=== PATIENT | female | born 1950 | race Hispanic/Latino ===

== ENCOUNTER 2017-07-05 07:37 | Day surgery (SDC) | payer MEDICARE ==
[2017-07-03 09:41] VITALS: BMI 21.0
[2017-07-05 08:11] LABS: BASO # 0.1 K/uL (0.0-0.2); EOS # 0.1 K/uL (0.0-0.7); EOS % 0.8 % (0.0-4.0); LYMPH # 1.6 K/uL (1.0-4.3); LYMPH % 17.4 % (20.0-40.0); MEAN CELL VOLUME 80.2 fl (81.0-99.0); MEAN CORPUSCULAR HEMOGLOBIN 27.6 pg (27.0-31.0); MEAN CORPUSCULAR HGB CONC 34.4 g/dL (33.0-37.0); MEAN PLATELET VOLUME 6.8 fl (7.2-11.7); MONO # 0.7 K/uL (0.0-0.8); MONO % 7.3 % (0.0-10.0); NEUT # 6.7 K/uL (1.8-7.0); NEUT % 73.5 % (50.0-75.0); NRBC % 0.3 % (0.0-0.0); RED CELL DISTRIBUTION WIDTH 18.6 % (11.5-14.5); WHITE BLOOD COUNT 9.1 K/uL (4.8-10.8)
[2017-07-05 08:36] LABS: BLOOD UREA NITROGEN 8 mg/dl (7-17); CALCIUM 8.9 mg/dL (8.4-10.2); CARBON DIOXIDE 34 mmol/L (22-30); CHLORIDE 85 mmol/L (98-107); GFR AFRICAN-AMERICAN > 60; GLUCOSE,RANDOM 95 mg/dL (65-105); POTASSIUM 4.3 MMOL/L (3.6-5.0); SODIUM 127 mmol/l (132-148)
[2017-07-05] MEDS ORDERED: Lactated Ringer's 500 ML IV ONE (08:50)
[2017-07-05] MEDS ORDERED: Propofol 10 mg/ml Inj (20 ML) ONE (08:58)
[2017-07-05] MEDS ORDERED: Lidocaine 1% 5ml Abboject IV ONE (08:59)
[2017-07-05] MEDS ORDERED: Lidocaine 1% Inj (20ml) IJ ONE (09:10)
[2017-07-05] MEDS ORDERED: Lidocaine 1% Inj (20ml) ONE (09:12)
[2017-07-05] MEDS ORDERED: Lactated Ringer's 1,000 ML IV SCH (10:00)
[2017-07-05 11:38] VITALS: RESP 18
[2017-07-05 14:03] VITALS: BP 168/80; PULSE 78; TEMP 98.9; O2SAT 89
== END 2017-07-05 14:54 | disposition home or self-care (01) ==
LOC: H.OPSURG 07:37
PROVIDERS: ATTEND Orthopaedic Surgery
DX: G56.01 Carpal tunnel syndrome, right upper limb (principal); M13.80 Other specified arthritis, unspecified site; J45.909 Unspecified asthma, uncomplicated
CPT/HCPCS: 29848; 36415; 80048; 85025; J0690; J2704; J7120

== ENCOUNTER 2018-01-21 13:06 | Emergency (ER) | payer MEDICARE ==
[2018-01-21 13:07] VITALS: BMI 21.0
[2018-01-21 13:21] VITALS: RESP 16; TEMP 97.9; O2SAT 100
--- NOTE | 2018-01-21 13:54 | ED PDOC ---
HPI: Hypertension/Hypotension Time Seen by Provider: 01/21/18 13:59 Chief Complaint (Nursing): High Blood Pressure Chief Complaint (Provider): HBP History Per: Patient History/Exam Limitations: no limitations Onset/Duration Of Symptoms: Hrs (3) Past Medical History Vital Signs: Last Vital Signs Temp 97.9 F 01/21/18 13:19 Pulse 80 01/21/18 13:19 Resp 16 01/21/18 13:19 BP 192/116 H 01/21/18 13:19 Pulse Ox 100 01/21/18 13:19 - Medical History PMH: Anxiety, Arthritis, Asthma, Back Problems (herniated disc), Colonic Polyps , COPD, Depression, Emphysema, Fibromyalgia, Gastritis, HTN, Malignancy ( bladder CA), Peripheral Edema, Pneumonia (CHILDHOOD) Denies: HIV, Chronic Kidney Disease - Surgical History Surgical History: Endoscopy - Family History Family History: States: Unknown Family Hx - Immunization History Hx Tetanus Toxoid Vaccination: No Hx Influenza Vaccination: Yes (06/2015) Hx Pneumococcal Vaccination: No - Home Medications Home Medications: Ambulatory Orders Medication Instructions Recorded Albuterol HFA [Ventolin HFA 90 2 puff IH [id number] PRN 09/26/17 mcg/actuation (8 g)] Gabapentin 300 mg PO Q8 09/26/17 Oxybutynin Chloride [Oxybutynin 15 mg PO Q12H 09/26/17 Chloride ER] Valsartan [Diovan] 80 mg PO DAILY 09/26/17 Baclofen [Lioresal] 10 mg PO Q8H 01/21/18 Cholecalciferol [Vitamin D 1000 IU] 1,000 unit PO DAILY 01/21/18 Fluticasone/Vilanterol [Breo 1 puff IH DAILY 01/21/18 Ellipta 200-25 Mcg INH] LORazepam [Ativan] 0.5 mg PO DAILY 01/21/18 Lactobacillus Combination No.8 1 cap PO DAILY 01/21/18 [Adult Probiotic] Naproxen [Naproxen] 375 mg PO Q12 PRN 01/21/18 [place]-3 Fatty Acids/Fish Oil [Fish 1 cap PO DAILY 01/21/18 Oil 1,000 mg Capsule] Omeprazole [Omeprazole] 20 mg PO DAILY 01/21/18 Sertraline [Zoloft] 50 mg PO DAILY 04/23/18 clonazePAM [Klonopin] 0.5 mg PO Q12 PRN 01/21/18 oxyCODONE [oxyCODONE Immediate 10 mg PO Q6 PRN 01/21/18 Release Tab] - Allergies Allergies/Adverse Reactions: Allergies Allergy/AdvReac Type Severity Reaction Status Date / Time No Known Allergies Allergy Verified 09/26/17 13:34 - Laboratory Results Result Diagrams: 01/21/18 14:20 01/21/18 14:20 - ECG O2 Sat by Pulse Oximetry: 100 Disposition - Clinical Impression Clinical Impression: Abnormal blood pressure, Hypertensive urgency - Patient ED Disposition Is Patient to be Admitted: No Discussed With Dr.: Jose Tomlin (discharge and have pt follow up in office tomorrow morning at 10am) Doctor Will See Patient In The: Office Counseled Patient/Family Regarding: Studies Performed, Diagnosis, Need For Followup, Rx Given - Disposition Referrals: Jose Tomlin MD [Family Provider] - Disposition: Routine/Home Disposition Time: 19:05 Condition: STABLE Additional Instructions: Pt will follow up with Dr Tomlin at 10am tomorrow Forms: [employer] (Azeri)
[2018-01-21] MEDS ORDERED: Metoprolol Succinate 25 mg XL Tab PO STA (14:21)
[2018-01-21 14:32] LABS: BASO # 0.1 K/uL (0.0-0.2); BASO % 0.9 % (0.0-2.0); EOS # 0.1 K/uL (0.0-0.7); EOS % 0.7 % (0.0-4.0); HEMOGLOBIN 14.7 g/dL (12.0-16.0); LYMPH # 0.8 K/uL (1.0-4.3); LYMPH % 9.9 % (20.0-40.0); MEAN CELL VOLUME 78.6 fl (81.0-99.0); MEAN CORPUSCULAR HGB CONC 34.3 g/dL (33.0-37.0); MEAN PLATELET VOLUME 7.1 fl (7.2-11.7); MONO # 0.5 K/uL (0.0-0.8); MONO % 5.5 % (0.0-10.0); NEUT # 7.1 K/uL (1.8-7.0); NRBC % 0.1 % (0.0-0.0); PLATELET COUNT 208 K/uL (130-400); RBC 5.45 Mil/uL (3.80-5.20); WHITE BLOOD COUNT 8.5 K/uL (4.8-10.8)
[2018-01-21 15:02] LABS: INR 1.2 (0.9-1.2)
[2018-01-21 15:06] LABS: B-TYPE NATRIURETIC PEPTIDE 312 pg/ml (0-900); BLOOD UREA NITROGEN 9 mg/dl (7-17); GFR AFRICAN-AMERICAN > 60; GFR NON-AFRICAN AMERICAN > 60
--- NOTE | 2018-01-21 15:22 | RAD ---
PROCEDURE: CHEST RADIOGRAPH, 1 VIEW HISTORY: Hypertension. COMPARISON: 10/27/2011. FINDINGS: LUNGS: Clear. PLEURA: No pneumothorax or pleural fluid seen. CARDIOVASCULAR: No radiographic findings to suggest acute or significant cardiovascular disease. OSSEOUS STRUCTURES: No significant abnormalities. VISUALIZED UPPER ABDOMEN: Normal. OTHER FINDINGS: None. IMPRESSION: No active disease. No acute/significant interval changes.
[2018-01-21 15:29] LABS: ANISOCYTOSIS SLIGHT; EOSINOPHIL 1 % (0-7); LYMPHOCYTE 11 % (20-50); MONOCYTE 4 % (0-10); NEUTROPHIL 83 % (42-75); PLASMACYTES 1 (0-0); PLATELET ESTIMATE NORMAL (NORMAL); TOTAL CELLS COUNTED 100
[2018-01-21] MEDS ORDERED: Metoprolol Succinate 50 mg XL Tab PO STA (17:57)
[2018-01-21 18:15] VITALS: BP 180/99; PULSE 66
--- NOTE | 2018-01-22 10:47 | CARD ---
APPROVED REPORT EKG Measurement Heart [id number] <Conclusion> Normal sinus rhythm Possible Left atrial enlargement Borderline ECG
== END 2018-01-21 19:40 | disposition home or self-care (01) ==
LOC: H.ER 13:06
DX: I16.0 Hypertensive urgency (principal); Z86.59 Personal history of other mental and behavioral disorders; Z85.51 Personal history of malignant neoplasm of bladder; I10 Essential (primary) hypertension; J44.9 Chronic obstructive pulmonary disease, unspecified; M79.7 Fibromyalgia

== ENCOUNTER 2018-03-18 03:02 | Emergency (ER) | payer MEDICARE ==
[2018-03-18 03:02] VITALS: BMI 21.0
[2018-03-18 03:20] VITALS: RESP 16; TEMP 98.1
--- NOTE | 2018-03-18 04:32 | ED PDOC ---
HPI: Psych/Substance Abuse Time Seen by Provider: 03/18/18 03:20 Chief Complaint (Nursing): Shortness Of Breath Chief Complaint (Provider): Shortness of Breath History Per: Patient History/Exam Limitations: no limitations Suicide/Self Injury Attempted (Context): None Modifying Factor(s): None Additional Complaint(s): 67 year old female brought in by EMS presents to ED with a history of COPD and presents to ED for a place to stay overnight. Patient states that she has been on her feet all day and flew in from [place] with nowhere to stay. 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 Patient lists no medical or psychiatric complaints. PCP: Non-[facility] provider Past Medical History Reviewed: Historical Data, Nursing Documentation, Vital Signs Vital Signs: Last Vital Signs Temp 98.1 F 03/18/18 03:14 Pulse 87 03/18/18 03:14 Resp 16 03/18/18 03:34 BP 137/82 03/18/18 03:14 Pulse Ox 94 L 03/18/18 03:14 - Medical History PMH: Anxiety, Arthritis, Asthma, Back Problems (herniated disc), Colonic Polyps , COPD, Depression, Emphysema, Fibromyalgia, Gastritis, HTN, Malignancy ( bladder CA), Peripheral Edema, Pneumonia (CHILDHOOD) Denies: HIV, Chronic Kidney Disease - Surgical History Surgical History: Endoscopy - Family History Family History: States: Unknown Family Hx - Social History Current smoker - smoking cessation education provided: Yes Ex-Smoker (has not smoked in the last 12 months): No - Immunization History Hx Tetanus Toxoid Vaccination: No Hx Influenza Vaccination: Yes (06/2015) Hx Pneumococcal Vaccination: No - Home Medications Home Medications: Ambulatory Orders Medication Instructions Recorded Albuterol HFA [Ventolin HFA 90 2 puff IH [id number] PRN 09/26/17 mcg/actuation (8 g)] Gabapentin 300 mg PO Q8 09/26/17 Oxybutynin Chloride [Oxybutynin 15 mg PO Q12H 09/26/17 Chloride ER] Valsartan [Diovan] 80 mg PO DAILY 09/26/17 Baclofen [Lioresal] 10 mg PO Q8H 01/21/18 Cholecalciferol [Vitamin D 1000 IU] 1,000 unit PO DAILY 01/21/18 Fluticasone/Vilanterol [Breo 1 puff IH DAILY 01/21/18 Ellipta 200-25 Mcg INH] LORazepam [Ativan] 0.5 mg PO DAILY 01/21/18 Lactobacillus Combination No.8 1 cap PO DAILY 01/21/18 [Adult Probiotic] Metoprolol Succinate XL [Toprol XL] 50 mg PO BID #10 tab 01/21/18 Naproxen [Naproxen] 375 mg PO Q12 PRN 01/21/18 [place]-3 Fatty Acids/Fish Oil [Fish 1 cap PO DAILY 01/21/18 Oil 1,000 mg Capsule] Omeprazole [Omeprazole] 20 mg PO DAILY 01/21/18 Sertraline [Zoloft] 50 mg PO DAILY 01/21/18 clonazePAM [Klonopin] 0.5 mg PO Q12 PRN 01/21/18 oxyCODONE [oxyCODONE Immediate 10 mg PO Q6 PRN 01/21/18 Release Tab] - Allergies Allergies/Adverse Reactions: Allergies Allergy/AdvReac Type Severity Reaction Status Date / Time No Known Allergies Allergy Verified 09/26/17 13:34 Review of Systems ROS Statement: Except As Marked, All Systems Reviewed And Found Negative ( Patient lists no medical complaints) Cardiovascular: Negative for: Chest Pain Respiratory: Negative for: Shortness of Breath Physical Exam - Reviewed Nursing Documentation Reviewed: Yes Vital Signs Reviewed: Yes - Physical Exam Appears: Positive for: Non-toxic, No Acute Distress Skin: Positive for: Normal Color, Warm, Dry Eye Exam: Positive for: Normal appearance Neck: Positive for: Normal Cardiovascular/Chest: Positive for: Regular Rate, Rhythm. Negative for: Murmur Respiratory: Positive for: Normal Breath Sounds. Negative for: Respiratory Distress Gastrointestinal/Abdominal: Positive for: Normal Exam, Soft. Negative for: Tenderness Extremity: Positive for: Normal ROM. 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 Negative for: Motor/Sensory Deficits - ECG O2 Sat by Pulse Oximetry: 94 (RA) Pulse Ox Interpretation: Abnormal Medical Decision Making Medical Decision Makin Initial impression: homelessness ekg nsr cxr no infiltrate vitals stable Initial plan: * crisis eval 0620 Patient was evaluated by crisis and given list of shelters and options for housing and deemed stable for discharge as per Dr. Paul. Dx: homelessness Scribe Attestation: Documented by Martine Lopez, acting as a scribe for Karmen Stiles MD. Provider Scribe Attestation: All medical record entries made by the Scribe were at my direction and personally dictated by me. I have reviewed the chart and agree that the record accurately reflects my personal performance of the history, physical exam, medical decision making, and the department course for this patient. I have also personally directed, reviewed, and agree with the discharge instructions and disposition. Disposition - Clinical Impression Clinical Impression: Homelessness - Patient ED Disposition Is Patient to be Admitted: No Counseled Patient/Family Regarding: Studies Performed, Diagnosis, Need For Followup - Disposition Referrals: [facility] [Outside] [facility] [Outside] Disposition: Routine/Home Disposition Time: 06:00 Condition: IMPROVED Additional Instructions: follow up with your primary doctor in 1-2 days return to the ED with any worsening or concerning symptoms Forms: [employer] (South African)
[2018-03-18 06:54] VITALS: BP 130/85; PULSE 82
[2018-03-20 10:44] VITALS: O2SAT 94
== END 2018-03-18 06:54 | disposition home or self-care (01) ==
LOC: H.ER 03:02
DX: J44.9 Chronic obstructive pulmonary disease, unspecified (principal); Z59.0 Homelessness

== ENCOUNTER 2018-04-07 02:29 | Inpatient (IN) | payer MEDICARE ==
[2018-04-07 02:30] VITALS: BMI 21.0
--- NOTE | 2018-04-07 03:22 | ED PDOC ---
HPI: SOB/CHF/COPD Time Seen by Provider: 04/07/18 03:18 Chief Complaint (Nursing): Respiratory Distress Chief Complaint (Provider): sob History Per: Patient (68 y/o female h/o COPD/Emphysema initially with complaint of sob at triage. Patient denies any alcohol intake. Noted drowsy at triage) Past Medical History Reviewed: Historical Data, Nursing Documentation, Vital Signs Vital Signs: Last Vital Signs Temp 98.8 F 04/07/18 02:31 Pulse 87 04/07/18 04:20 Resp 17 04/07/18 02:59 BP 164/89 H 04/07/18 02:31 Pulse Ox 100 04/07/18 06:15 - Medical History PMH: Anxiety, Arthritis, Asthma, Back Problems (herniated disc), Colonic Polyps , COPD, Depression, Emphysema, Fibromyalgia, Gastritis, HTN, Malignancy ( bladder CA), Peripheral Edema, Pneumonia (CHILDHOOD) Denies: HIV, Chronic Kidney Disease - Surgical History Surgical History: Endoscopy - Family History Family History: States: Unknown Family Hx - Immunization History Hx Tetanus Toxoid Vaccination: No Hx Influenza Vaccination: Yes (06/2015) Hx Pneumococcal Vaccination: No - Home Medications Home Medications: Ambulatory Orders Medication Instructions Recorded Albuterol HFA [Ventolin HFA 90 2 puff IH [id number] PRN 09/26/17 mcg/actuation (8 g)] Gabapentin 300 mg PO Q8 09/26/17 Oxybutynin Chloride [Oxybutynin 15 mg PO Q12H 09/26/17 Chloride ER] Valsartan [Diovan] 80 mg PO DAILY 09/26/17 Baclofen [Lioresal] 10 mg PO Q8H 01/21/18 Cholecalciferol [Vitamin D 1000 IU] 1,000 unit PO DAILY 01/21/18 Fluticasone/Vilanterol [Breo 1 puff IH DAILY 01/21/18 Ellipta 200-25 Mcg INH] LORazepam [Ativan] 0.5 mg PO DAILY 01/21/18 Lactobacillus Combination No.8 1 cap PO DAILY 01/21/18 [Adult Probiotic] Metoprolol Succinate XL [Toprol XL] 50 mg PO BID #10 tab 01/21/18 Naproxen [Naproxen] 375 mg PO Q12 PRN 01/21/18 [place]-3 Fatty Acids/Fish Oil [Fish 1 cap PO DAILY 01/21/18 Oil 1,000 mg Capsule] Omeprazole [Omeprazole] 20 mg PO DAILY 01/21/18 Sertraline [Zoloft] 50 mg PO DAILY 01/21/18 clonazePAM [Klonopin] 0.5 mg PO Q12 PRN 01/21/18 oxyCODONE [oxyCODONE Immediate 10 mg PO Q6 PRN 01/21/18 Release Tab] - Allergies Allergies/Adverse Reactions: Allergies Allergy/AdvReac Type Severity Reaction Status Date / Time No Known Allergies Allergy Verified 09/26/17 13:34 Review of Systems ROS Statement: Except As Marked, All Systems Reviewed And Found Negative Physical Exam - Reviewed Nursing Documentation Reviewed: Yes Vital Signs Reviewed: Yes - Physical Exam Appears: Positive for: Non-toxic, No Acute Distress. Negative for: Well Head Exam: Positive for: ATRAUMATIC, NORMAL INSPECTION, NORMOCEPHALIC Skin: Positive for: Normal Color, Warm, DRY Eye Exam: Positive for: EOMI, Normal appearance, PERRL ENT: Positive for: Normal ENT Inspection Neck: Positive for: Normal, Painless ROM Cardiovascular/Chest: Positive for: Regular Rate, Rhythm Respiratory: Positive for: CNT, Normal Breath Sounds Gastrointestinal/Abdominal: Positive for: Normal Exam, Soft Back: Positive for: Normal Inspection Extremity: Positive for: Normal ROM Lymphatic: Negative for: Adenopathy Neurologic/Psych: Positive for: Other (sleepy in ED; verbally arousable.). Negative for: Alert, Oriented - Laboratory Results Result Diagrams: 04/07/18 03:38 04/07/18 03:38 - ECG O2 Sat by Pulse Oximetry: 100 - Progress ED Course And Treament: HEAD CT: NAD CXR: NAD EKG: NSR 81 BPM; ECTOPY; NO ACUTE DISEASE NARCAN 0.4MG IV X 1 DOSE PATIENT PLACED ON BIPAP. D/W DR. MEEHAN Disposition - Clinical Impression Clinical Impression: COPD (chronic obstructive pulmonary disease), Altered mental status - Patient ED Disposition Is Patient to be Admitted: Yes - Disposition Disposition Time: 06:20 Condition: FAIR - Pt Status Changed To: Hospital Disposition Of: Inpatient - Admit Certification Admit to Inpatient:: After my assessment, the patient will require hospitalization for at least two midnights. This is because of the severity of symptoms shown, intensity of services needed, and/or the medical risk in this patient being treated as an outpatient.
[2018-04-07 03:40] LABS: BASO # 0.1 K/uL (0.0-0.2); BASO % 0.7 % (0.0-2.0); EOS # 0.1 K/uL (0.0-0.7); EOS % 0.9 % (0.0-4.0); HEMOGLOBIN 13.1 g/dL (12.0-16.0); LYMPH # 1.1 K/uL (1.0-4.3); LYMPH % 7.2 % (20.0-40.0); MEAN CELL VOLUME 82.5 fl (81.0-99.0); MEAN CORPUSCULAR HEMOGLOBIN 28.6 pg (27.0-31.0); MEAN CORPUSCULAR HGB CONC 34.7 g/dL (33.0-37.0); MEAN PLATELET VOLUME 6.4 fl (7.2-11.7); MONO # 0.9 K/uL (0.0-0.8); MONO % 5.5 % (0.0-10.0); NEUT # 13.5 K/uL (1.8-7.0); NEUT % 85.7 % (50.0-75.0); PLATELET COUNT 257 K/uL (130-400); RBC 4.58 Mil/uL (3.80-5.20); WHITE BLOOD COUNT 15.7 K/uL (4.8-10.8)
[2018-04-07 03:52] LABS: ALB/GLOB RATIO 1.3 (1.0-2.1); ALBUMIN 3.8 g/dL (3.5-5.0); ALT/SGPT 17 U/L (9-52); AST/SGOT 30 U/L (14-36); BLOOD UREA NITROGEN 13 mg/dl (7-17); CALCIUM 8.9 mg/dL (8.4-10.2); GFR AFRICAN-AMERICAN > 60; GFR NON-AFRICAN AMERICAN > 60
[2018-04-07 03:58] LABS: ABG ALLEN TEST YES; ARTERIAL BLOOD GAS HCO3 31.3 mmol/L (21-28); ARTERIAL BLOOD GAS HEMOGLOBIN 13.3 g/dL (11.7-17.4); ARTERIAL BLOOD GAS O2 CAPACITY 16.6 mL/dL (16-24); ARTERIAL BLOOD GAS O2 CONTENT 15.3 ML/dL (15-23); ARTERIAL BLOOD GAS O2 SAT 92.1 % (95-98); ARTERIAL BLOOD GAS PCO2 73 mm/Hg (35-45); ARTERIAL BLOOD GAS PH 7.32 (7.35-7.45); ARTERIAL BLOOD GAS PO2 56 mm/Hg (80-100); ARTERIAL BLOOD GAS TCO2 39.8 mmol/L (22-28)
[2018-04-07] MEDS ORDERED: Naloxone 0.4 mg/ml Inj (Adult) IVP STA (04:00)
[2018-04-07 04:04] LABS: B-TYPE NATRIURETIC PEPTIDE 404 pg/ml (0-900)
[2018-04-07] MEDS ORDERED: Naloxone 0.4 mg/ml Inj (Adult) ONE (04:09)
[2018-04-07] MEDS ORDERED: Albuterol-Ipratrop 3 mg / 0.5 (3 ml) UD INH STA (05:15)
[2018-04-07 05:23] LABS: TOTAL CELLS COUNTED 100
[2018-04-07 05:24] LABS: BANDS 1 % (0-2); EOSINOPHIL 1 % (0-7); LYMPHOCYTE 12 % (20-50); MONOCYTE 7 % (0-10); NEUTROPHIL 79 % (42-75); PLATELET ESTIMATE NORMAL (NORMAL)
[2018-04-07] MEDS ORDERED: levoFLOXacin 500 mg in D5W 500 MG/100 ML BAG IVPB STA (05:48)
[2018-04-07] MEDS ORDERED: Albuterol-Ipratrop 3 mg / 0.5 (3 ml) UD ONE (05:49)
[2018-04-07] MEDS ORDERED: levoFLOXacin 500 mg in D5W 500 MG/100 ML BAG IVPB SCH (09:00)
--- NOTE | 2018-04-07 10:26 | RAD ---
HISTORY: Shortness of breath. COMPARISON: 01/21/2018. FINDINGS: LUNGS: No active pulmonary disease. PLEURA: No significant pleural effusion identified, no pneumothorax apparent. CARDIOVASCULAR: No radiographic findings to suggest acute or significant cardiovascular disease. OSSEOUS STRUCTURES: No significant abnormalities. VISUALIZED UPPER ABDOMEN: Normal. OTHER FINDINGS: None. IMPRESSION: No active disease. No significant interval change compared to the prior examination(s).
--- NOTE | 2018-04-07 11:01 | CT ---
PROCEDURE: CT HEAD WITHOUT CONTRAST. HISTORY: AMS COMPARISON: MRI brain dated 06/07/2017. TECHNIQUE: Axial computed tomography images were obtained through the head/brain without intravenous contrast. Radiation dose: Total exam DLP = 752.5 mGy-cm. This CT exam was performed using one or more of the following dose reduction techniques: Automated exposure control, adjustment of the mA and/or kV according to patient size, and/or use of iterative reconstruction technique. FINDINGS: HEMORRHAGE: No intracranial hemorrhage. BRAIN: No mass effect or edema. Mild atrophy. Mild chronic microvascular ischemic changes. VENTRICLES: Mildly prominent. No hydrocephalus. CALVARIUM: Unremarkable. PARANASAL SINUSES: Unremarkable as visualized. No significant inflammatory changes. MASTOID AIR CELLS: Unremarkable as visualized. No inflammatory changes. OTHER FINDINGS: Dysconjugate gaze. IMPRESSION: Dysconjugate gaze. This is a new finding. No evidence of acute intracranial hemorrhage or territorial infarct. ER notification submitted electronically.
[2018-04-07 11:22] LABS: SQUAMOUS EPITHIAL 1 /hpf (0-5); URINE BACTERIA RARE (<OCC); URINE BILIRUBIN NEGATIVE (NEGATIVE); URINE BLOOD NEGATIVE (NEGATIVE); URINE CLARITY CLOUDY (Clear); URINE COLOR YELLOW (YELLOW); URINE GLUCOSE (UA) NEG (Normal); URINE LEUKOCYTE ESTERASE NEG Leu/uL (Negative); URINE PROTEIN NEGATIVE (NEGATIVE); URINE UROBILINOGEN 0.2-1.0 mg/dL (0.2-1.0)
[2018-04-07 11:39] LABS: OPIATES, UR NEGATIVE (NEGATIVE); PHENCYCLIDINE, UR NEGATIVE (NEGATIVE)
[2018-04-07 11:41] LABS: BARBITURATES, UR NEGATIVE (NEGATIVE); BENZODIAZEPINES, UR POSITIVE (NEGATIVE)
[2018-04-07] MEDS ORDERED: methylPREDNISolone 60 MG in Sodium Chloride 0.9% 50 ML IV SCH (16:00)
[2018-04-07] MEDS: oxyCODONE 10 mg Immediate Release Tab PO PRN ×2 (16:02→22:22)
--- NOTE | 2018-04-07 17:58 | CARD ---
APPROVED REPORT EKG Measurement Heart [id number] <Conclusion> Normal sinus rhythm with sinus arrhythmia Possible Left atrial enlargement Borderline ECG
[2018-04-07] MEDS: Metoprolol Succinate 50 mg XL Tab PO SCH (18:03)
--- NOTE | 2018-04-08 07:55 | CP.PCM.HP ---
History of Present Illness - History of Present Illness History of Present Illness: CC: SOB nd AMS History of Present Illness: History from Patient and her PMD A 68yoF with H/O COPD, Active smoker ( About 3 PPD), Anxiety DO and Chronic Psychotropic medication abuse presented to the ER with C/O SOB and AMS after she signed out from [facility]. In the ER, she was treated for Acute Respiratory Failure due to COPD Exacerbation and Substance abuse with Narcan, BIPAP, Duoneb, Solumedrol, and admitted to Telemetry. +Persistent cough. H/O Prior Intubation. Denies chest pain, fever or chills. Present on Admission - Present on Admission Any Indicators Present on Admission: No Review of Systems - Review of Systems All systems: reviewed and no additional remarkable complaints except Past Patient History - Infectious Disease Hx of Infectious Diseases: None - Past Medical History & Family History Past Medical History?: Yes - Past Social History Smoking Status: Heavy Smoker > 10 Cigarettes Daily (SMokes > 3PPD) Drugs: Prescription medications - CARDIAC Hx Hypertension: Yes Hx Peripheral Edema: Yes - PULMONARY Hx Asthma: Yes Hx Chronic Obstructive Pulmonary Disease (COPD): Yes Hx Emphysema: Yes Hx Pneumonia: Yes (CHILDHOOD) - NEUROLOGICAL Hx Neurological Disorder: Yes Hx Dizziness: Yes Hx Vertigo: Yes Other/Comment: NUMBNESS.TINGLING HAND AND FEET - HEENT Hx HEENT Problems: No - RENAL Hx Chronic Kidney Disease: No - ENDOCRINE/METABOLIC Hx Endocrine Disorders: No - HEMATOLOGICAL/ONCOLOGICAL Hx AIDS: No Hx Human Immunodeficiency Virus (HIV): No - INTEGUMENTARY Hx Eczema: Yes - MUSCULOSKELETAL/RHEUMATOLOGICAL Hx Arthritis: Yes Hx Falls: Yes - GASTROINTESTINAL Hx Gastritis: Yes - GENITOURINARY/GYNECOLOGICAL Hx Genitourinary Disorders: No Hx Bladder Cancer: Yes Other/Comment: FREGUENT URINATION - PSYCHIATRIC Hx Anxiety: Yes Hx Depression: Yes Hx Substance Use: No - SURGICAL HISTORY Other/Comment: TURBT - ANESTHESIA Hx Anesthesia: Yes Hx Anesthesia Reactions: No Hx Malignant Hyperthermia: No Has any member of the family had a problem w/ anesthesia?: No Meds Home Medications: Home Medication List Medication Instructions Recorded Confirmed Type Levofloxacin [Levaquin] 500 mg PO DAILY #5 tablet 04/09/18 Rx Methylprednisolone [Medrol Dose 4 mg PO DAILY #21 mg 04/09/18 Rx Pack (21 tabs)] Allergies/Adverse Reactions: Allergies Allergy/AdvReac Type Severity Reaction Status Date / Time No Known Allergies Allergy Verified 09/26/17 13:34 Physical Exam - Constitutional Appears: In Acute Distress, Chronically Ill - Head Exam Head Exam: ATRAUMATIC, NORMAL INSPECTION, NORMOCEPHALIC - Eye Exam Eye Exam: EOMI, Normal appearance, PERRL Pupil Exam: NORMAL ACCOMODATION, PERRL - ENT Exam ENT Exam: Mucous Membranes Moist, Normal Exam - Neck Exam Neck exam: Positive for: Full Rom, Normal Inspection - Respiratory Exam Respiratory Exam: Decreased Breath Sounds, Prolonged Expiratory Phase, Wheezes - Cardiovascular Exam Cardiovascular Exam: Tachycardia, REGULAR RHYTHM, +S1, +S2 - GI/Abdominal Exam GI & Abdominal Exam: Normal Bowel Sounds, Soft. absent: Tenderness - Extremities Exam Extremities exam: Positive for: normal capillary refill, normal inspection - Back Exam Back exam: NORMAL INSPECTION - Neurological Exam Neurological exam: Altered, CN II-XII Intact, Reflexes Normal - Psychiatric Exam Psychiatric exam: Normal Affect, Normal Mood - Skin Skin Exam: Dry, Intact, Normal Color, Warm Results - Vital Signs Recent Vital Signs: Last Vital Signs Temp 98 F 04/08/18 04:49 Pulse 69 04/08/18 04:49 Resp 20 04/08/18 04:49 BP 140/94 H 04/08/18 04:49 Pulse Ox 88 L 04/08/18 04:49 - Labs Result Diagrams: 04/09/18 04:20 04/09/18 04:20 Labs: Laboratory Results - last 24 hr 04/07/18 04/07/18 04/07/18 10:55 10:59 11:55 POC Glucose (mg/dL) 114 H Urine Color Yellow Urine Clarity Cloudy Urine pH 6.0 Ur Specific [place] 1.012 Urine Protein Negative Urine Glucose (UA) Neg Urine Ketones Negative Urine Blood Negative Urine Nitrate Negative Urine Bilirubin Negative Urine Urobilinogen 0.2-1.0 Ur Leukocyte Esterase Neg Urine RBC (Auto) < 1 Urine Microscopic WBC 3 Ur Squamous Epith Cells 1 Urine Bacteria Rare Urine Opiates Screen Negative Urine Methadone Screen Negative Ur Barbiturates Screen Negative Ur Phencyclidine Scrn Negative Ur Amphetamines Screen Negative U Benzodiazepines Scrn Positive U Oth Cocaine Metabols Negative U Cannabinoids Screen Negative - Imaging and Cardiology Chest x-ray Status: Report reviewed by me Additional comment: HISTORY: Shortness of breath. COMPARISON: 01/21/2018. FINDINGS: LUNGS: No active pulmonary disease. PLEURA: No significant pleural effusion identified, no pneumothorax apparent. CARDIOVASCULAR: No radiographic findings to suggest acute or significant cardiovascular disease. OSSEOUS STRUCTURES: No significant abnormalities. VISUALIZED UPPER ABDOMEN: Normal. OTHER FINDINGS: None. IMPRESSION: No active disease. No significant interval change compared to the prior examination(s). Assessment & Plan (1) Acute respiratory failure with hypercapnia Assessment and Plan: due to COPD Exacerbation and Drug Use Treated with BIPAP in the ER Continue O2 Via NC Duoneb RTC Solumedrol 60mg IV Q6hrs Pulmonary Consult with Status: Acute Priority: High (2) Altered mental status Assessment and Plan: Medication VS CO2 Narcosis PCO2 73 in ABG S/P NArcan Supportive CAre and BIPAP Status: Acute (3) Drug abuse Assessment and Plan: Polysubatance use Chronic Cig smoker Counselled Status: Acute (4) Hypertension Status: Chronic Priority: Low
--- NOTE | 2018-04-08 07:59 | CP.PCM.CON ---
History of Present Illness - History of Present Illness History of Present Illness: 68YR OLD FEMALE [WHO IS WELL KNOWN TO ME FOR MANY YEARS]ADMITTED WITH ACUTE HYPERCAPNEIC RESPIRATORY FAILURE DUE TO COPD EXACERBATION --SYMPTOMS IMPROVED WITH BIPAP THERAPY.SHE WAS RECENTLY D/NACHO FROM [facility] AFTER THERAPY FOR SIMILAR PROBLEMS.SHE HAS HAD MULTIPLE ADMISSIONS FOR EXACERBATION OF COPD AND RESPIRATORY FAILURE REQUIRING ENDOTRACHEAL INTUBATION AND VENTILATION.SHE IS NON-COMPLIANT TO THERAPY AND CONTINUES TO SMOKE MORE THAN 3 PACKS OF CIGARETTES DAILY.SHE IS ALSO ADDICTED TO PAIN MEDS AND ANTI ANXIETY MEDS.SHE RECENTLY SIGNED OUT AMA FROM [facility] BECAUSE SHE WAS NOT ALLOWED TO USE HER HOME MEDS AND WANTED TO SMOKE CIGARETTES. PMH-COPD ANXIETY WITH DEPRESSION ADDICTION TO PAIN MEDS AND ANTI-ANXIETY MEDS HYPERTENSION BLADDER CANCER CHRONIC CIGARETTE SMOKING NON-COMPLIANCE TO THERAPY S/P HIP REPLACEMENT SURGERY Past Patient History - Infectious Disease Hx of Infectious Diseases: None - Past Medical History & Family History Past Medical History?: Yes - Past Social History Smoking Status: Current - CARDIAC Hx Hypertension: Yes Hx Peripheral Edema: Yes - PULMONARY Hx Asthma: Yes Hx Chronic Obstructive Pulmonary Disease (COPD): Yes Hx Emphysema: Yes Hx Pneumonia: Yes (CHILDHOOD) - NEUROLOGICAL Hx Neurological Disorder: Yes Hx Dizziness: Yes Hx Vertigo: Yes Other/Comment: NUMBNESS.TINGLING HAND AND FEET - HEENT Hx HEENT Problems: No - RENAL Hx Chronic Kidney Disease: No - ENDOCRINE/METABOLIC Hx Endocrine Disorders: No - HEMATOLOGICAL/ONCOLOGICAL Hx AIDS: No Hx Human Immunodeficiency Virus (HIV): No - INTEGUMENTARY Hx Eczema: Yes - MUSCULOSKELETAL/RHEUMATOLOGICAL Hx Arthritis: Yes Hx Falls: Yes - GASTROINTESTINAL Hx Gastritis: Yes - GENITOURINARY/GYNECOLOGICAL Hx Genitourinary Disorders: No Hx Bladder Cancer: Yes Other/Comment: FREGUENT URINATION - PSYCHIATRIC Hx Anxiety: Yes Hx Depression: Yes Hx Substance Use: No - SURGICAL HISTORY Other/Comment: TURBT - ANESTHESIA Hx Anesthesia: Yes Hx Anesthesia Reactions: No Hx Malignant Hyperthermia: No Has any member of the family had a problem w/ anesthesia?: No Meds Allergies/Adverse Reactions: Allergies Allergy/AdvReac Type Severity Reaction Status Date / Time No Known Allergies Allergy Verified 09/26/17 13:34 - Medications Medications: Current Medications Baclofen (Lioresal) 10 mg PO Q8H [facility] Last Admin: 04/08/18 05:12 Dose: 10 mg Cholecalciferol (Vitamin D) 1,000 intlu PO DAILY [facility] Clonazepam (Klonopin) 0.5 mg PO Q12 PRN PRN Reason: Anxiety Gabapentin (Neurontin) 300 mg PO Q8 [facility] Last Admin: 04/08/18 00:13 Dose: 300 mg Heparin Sodium (Porcine) (Heparin) 5,000 units SC Q8 [facility] PRN Reason: Protocol Last Admin: 04/08/18 00:13 Dose: 5,000 units Levofloxacin/Dextrose (Levaquin 500mg) 500 mg in 100 mls @ 100 mls/hr IVPB DAILY [facility] PRN Reason: Protocol Lactobacillus Acidophilus (Bacid Acidophilus) 1 cap PO DAILY [facility] Methylprednisolone (Solu-Medrol) 60 mg IV Q6H [facility] Last Admin: 04/08/18 05:12 Dose: 60 mg Metoprolol Succinate (Toprol Xl) 50 mg PO BID [facility] Last Admin: 04/07/18 18:03 Dose: 50 mg [id number] Ethyl Esters (Lovaza) 1 gm PO DAILY [facility] Oxybutynin Chloride (Ditropan Tab) 5 mg PO QID [facility] Last Admin: 04/07/18 22:22 Dose: 5 mg Oxycodone HCl (Oxycodone Immediate Release Tab) 10 mg PO Q6 PRN PRN Reason: Pain, severe (8-10) Last Admin: 04/07/18 22:22 Dose: 10 mg Pantoprazole Sodium (Protonix Ec Tab) 40 mg PO DAILY [facility] Fluticasone/Salmeterol (Advair Diskus 250/50) 1 puff IH Q12 [facility] Sertraline HCl (Zoloft) 50 mg PO DAILY [facility] Valsartan (Diovan) 80 mg PO DAILY [facility] Physical Exam - Constitutional Appears: No Acute Distress - Head Exam Head Exam: ATRAUMATIC, NORMAL INSPECTION, NORMOCEPHALIC - Eye Exam Eye Exam: EOMI, Normal appearance, PERRL Pupil Exam: NORMAL ACCOMODATION, PERRL - ENT Exam ENT Exam: Mucous Membranes Moist, Normal Exam - Neck Exam Neck exam: Positive for: Normal Inspection - Respiratory Exam Respiratory Exam: Decreased Breath Sounds, Prolonged Expiratory Phase, Rales, Wheezes - Cardiovascular Exam Cardiovascular Exam: REGULAR RHYTHM - GI/Abdominal Exam GI & Abdominal Exam: Normal Bowel Sounds, Soft. absent: Tenderness - Rectal Exam Rectal Exam: NORMAL INSPECTION - Extremities Exam Additional comments: ARTHRITIS CHANGES - Back Exam Back exam: NORMAL INSPECTION - Neurological Exam Neurological exam: Alert, CN II-XII Intact, Normal Gait, Oriented x3, Reflexes Normal - Psychiatric Exam Psychiatric exam: Normal Affect, Normal Mood - Skin Skin Exam: Dry, Intact, Normal Color, Warm Results - Vital Signs Recent Vital Signs: Last Vital Signs Temp 98 F 04/08/18 04:49 Pulse 69 04/08/18 04:49 Resp 20 04/08/18 04:49 BP 140/94 H 04/08/18 04:49 Pulse Ox 88 L 04/08/18 04:49 - Labs Result Diagrams: 04/07/18 03:38 04/07/18 03:38 Labs: Laboratory Results - last 24 hr 04/07/18 04/07/18 04/07/18 10:55 10:59 11:55 POC Glucose (mg/dL) 114 H Urine Color Yellow Urine Clarity Cloudy Urine pH 6.0 Ur Specific [place] 1.012 Urine Protein Negative Urine Glucose (UA) Neg Urine Ketones Negative Urine Blood Negative Urine Nitrate Negative Urine Bilirubin Negative Urine Urobilinogen 0.2-1.0 Ur Leukocyte Esterase Neg Urine RBC (Auto) < 1 Urine Microscopic WBC 3 Ur Squamous Epith Cells 1 Urine Bacteria Rare Urine Opiates Screen Negative Urine Methadone Screen Negative Ur Barbiturates Screen Negative Ur Phencyclidine Scrn Negative Ur Amphetamines Screen Negative U Benzodiazepines Scrn Positive U Oth Cocaine Metabols Negative U Cannabinoids Screen Negative Assessment & Plan - Assessment and Plan (Free Text) Assessment: ACUTE HYPERCAPNEIC RESPIRATORY FAILURE COPD EXACERBATION NON-COMPLIANCE TO THERAPY HYPERTENSION--POORLY CONTROLLED CHRONIC CIGARETTE SMOKING LEUKOCYTOSIS--R/O URI Plan: AEROSOLIZED BRONCHODILATORS IV STEROIDS AND ANTIBIOTICS ADVISED SMOKING CAESATION O2 BIPAP THERAPY
[2018-04-08] MEDS ORDERED: Sodium Chloride 3% for Inhalation 4 ML VIAL.NEB IH PRN (08:07)
[2018-04-08] MEDS: Fluticasone-Salmeterol 250-50mcg Diskus IH SCH ×2 (08:36→21:20)
[2018-04-08] MEDS: Cholecalciferol 1,000 INTLU TAB PO SCH (08:37)
[2018-04-08] MEDS: Omega-3-Acid Ethyl Esters 1 GM Cap PO SCH (08:37)
[2018-04-08] MEDS: Pantoprazole 40 mg EC Tab PO SCH (08:37)
[2018-04-08] MEDS: Lactobacillus Acidophilus 500 MU Cap PO SCH (08:37)
[2018-04-08] MEDS: Metoprolol Succinate 50 mg XL Tab PO SCH ×2 (08:39→17:32)
[2018-04-08] MEDS: levoFLOXacin 500 mg in D5W 500 MG/100 ML BAG IVPB SCH (08:40)
[2018-04-08 08:54] LABS: BASO % 0.2 % (0.0-2.0); LYMPH # 0.6 K/uL (1.0-4.3); LYMPH % 4.7 % (20.0-40.0); MEAN CELL VOLUME 82.5 fl (81.0-99.0); MEAN CORPUSCULAR HEMOGLOBIN 28.7 pg (27.0-31.0); MEAN CORPUSCULAR HGB CONC 34.8 g/dL (33.0-37.0); MEAN PLATELET VOLUME 6.6 fl (7.2-11.7); MONO # 0.2 K/uL (0.0-0.8); MONO % 1.3 % (0.0-10.0); NEUT # 11.6 K/uL (1.8-7.0); NEUT % 93.8 % (50.0-75.0); NRBC % 0.2 % (0.0-0.0); PLATELET COUNT 296 K/uL (130-400); RBC 5.23 Mil/uL (3.80-5.20); WHITE BLOOD COUNT 12.4 K/uL (4.8-10.8)
[2018-04-08] MEDS ORDERED: Albuterol-Ipratrop 3 mg / 0.5 (3 ml) UD INH PRN (09:42)
[2018-04-08 13:24] LABS: ANISOCYTOSIS SLIGHT; LYMPHOCYTE 4 % (20-50); MONOCYTE 1 % (0-10); NEUTROPHIL 95 % (42-75); PLATELET ESTIMATE NORMAL (NORMAL); TOTAL CELLS COUNTED 100
[2018-04-08] MEDS: oxyCODONE 10 mg Immediate Release Tab PO PRN (20:12)
[2018-04-09 00:08] VITALS: RESP 18
[2018-04-09] MEDS: oxyCODONE 10 mg Immediate Release Tab PO PRN ×2 (03:26→10:10)
[2018-04-09 05:33] LABS: HEMOGLOBIN 12.9 g/dL (12.0-16.0); MEAN CELL VOLUME 82.9 fl (81.0-99.0); MEAN CORPUSCULAR HEMOGLOBIN 29.1 pg (27.0-31.0); RBC 4.45 Mil/uL (3.80-5.20); RED CELL DISTRIBUTION WIDTH 17.6 % (11.5-14.5)
[2018-04-09 05:55] LABS: BLOOD UREA NITROGEN 18 mg/dl (7-17); GFR AFRICAN-AMERICAN > 60; GFR NON-AFRICAN AMERICAN > 60
--- NOTE | 2018-04-09 08:11 | CP.PCM.PN ---
Subjective - Date & Time of Evaluation Date of Evaluation: 04/09/18 Time of Evaluation: 08:11 - Subjective Subjective: NO APPARENT DISTRESS WANTS TO GO HOME REFUSED ABGS YESTERDAY Objective - Vital Signs/Intake and Output Vital Signs (last 24 hours): Temp Pulse Resp BP Pulse Ox 97.8 F 59 L 18 165/85 H 94 L 04/09/18 04:44 04/09/18 04:44 04/09/18 04:44 04/09/18 04:44 04/09/18 04:44 - Medications Medications: Current Medications Albuterol/Ipratropium (Duoneb 3 Mg/0.5 Mg (3 Ml) Ud) 3 ml INH RQ4 PRN PRN Reason: Shortness of Breath Baclofen (Lioresal) 10 mg PO Q8H [facility] Last Admin: 04/09/18 03:26 Dose: 10 mg Cholecalciferol (Vitamin D) 1,000 intlu PO DAILY [facility] Last Admin: 04/08/18 08:37 Dose: 1,000 intlu Clonazepam (Klonopin) 0.5 mg PO Q12 PRN PRN Reason: Anxiety Last Admin: 04/09/18 06:37 Dose: 0.5 mg Gabapentin (Neurontin) 300 mg PO Q8 [facility] Last Admin: 04/09/18 00:18 Dose: 300 mg Heparin Sodium (Porcine) (Heparin) 5,000 units SC Q8 [facility] PRN Reason: Protocol Last Admin: 04/09/18 00:18 Dose: 5,000 units Levofloxacin/Dextrose (Levaquin 500mg) 500 mg in 100 mls @ 100 mls/hr IVPB DAILY [facility] PRN Reason: Protocol Last Admin: 04/08/18 08:40 Dose: 100 mls/hr Lactobacillus Acidophilus (Bacid Acidophilus) 1 cap PO DAILY [facility] Last Admin: 04/08/18 08:37 Dose: 1 cap Methylprednisolone (Solu-Medrol) 60 mg IV Q6H [facility] Last Admin: 04/09/18 03:27 Dose: 60 mg Metoprolol Succinate (Toprol Xl) 50 mg PO BID [facility] Last Admin: 04/08/18 17:32 Dose: 50 mg Nicotine (Nicoderm Cq) 1 patch TD DAILY [facility] Last Admin: 04/08/18 17:32 Dose: 1 patch [id number] Ethyl Esters (Lovaza) 1 gm PO DAILY [facility] Last Admin: 04/08/18 08:37 Dose: 1 gm Oxybutynin Chloride (Ditropan Tab) 5 mg PO QID [facility] Last Admin: 04/08/18 21:20 Dose: 5 mg Oxycodone HCl (Oxycodone Immediate Release Tab) 10 mg PO Q6 PRN PRN Reason: Pain, severe (8-10) Last Admin: 04/09/18 03:26 Dose: 10 mg Pantoprazole Sodium (Protonix Ec Tab) 40 mg PO DAILY [facility] Last Admin: 04/08/18 08:37 Dose: 40 mg Fluticasone/Salmeterol (Advair Diskus 250/50) 1 puff IH Q12 [facility] Last Admin: 04/08/18 21:20 Dose: 1 puff Sertraline HCl (Zoloft) 50 mg PO DAILY [facility] Last Admin: 04/08/18 08:38 Dose: 50 mg Valsartan (Diovan) 80 mg PO DAILY [facility] Last Admin: 04/08/18 08:39 Dose: 80 mg - Labs Labs: 04/09/18 04:20 04/09/18 04:20 - Constitutional Appears: No Acute Distress - Head Exam Head Exam: ATRAUMATIC, NORMAL INSPECTION, NORMOCEPHALIC - Eye Exam Eye Exam: EOMI, Normal appearance, PERRL Pupil Exam: NORMAL ACCOMODATION, PERRL - ENT Exam ENT Exam: Mucous Membranes Moist, Normal Exam - Neck Exam Neck Exam: Full ROM, Normal Inspection. absent: Lymphadenopathy - Respiratory Exam Respiratory Exam: Prolonged Expiratory Phase, NORMAL BREATHING PATTERN - Cardiovascular Exam Cardiovascular Exam: REGULAR RHYTHM, +S1, +S2. absent: Murmur - GI/Abdominal Exam GI & Abdominal Exam: Soft, Normal Bowel Sounds. absent: Tenderness - Rectal Exam Rectal Exam: NORMAL INSPECTION - Extremities Exam Extremities Exam: Full ROM, Normal Capillary Refill, Normal Inspection. absent : Joint Swelling, Pedal Edema - Back Exam Back Exam: NORMAL INSPECTION - Neurological Exam Neurological Exam: Alert, Awake, CN II-XII Intact, Normal Gait, Oriented x3 - Psychiatric Exam Psychiatric exam: Normal Affect, Normal Mood - Skin Skin Exam: Dry, Intact, Normal Color, Warm Assessment and Plan - Assessment and Plan (Free Text) Assessment: COPD--IMPROVED CHRONIC CIGARETTE SMOKER NON-COMPLIANCE Plan: NO FURTHER PULMONARY INTERVENTION FOR NOW WILL SIGN OFF CASE AND SEE AGAIN AT YOUR REQUEST
[2018-04-09] MEDS: Lactobacillus Acidophilus 500 MU Cap PO SCH (08:16)
[2018-04-09] MEDS: Fluticasone-Salmeterol 250-50mcg Diskus IH SCH (08:16)
[2018-04-09] MEDS: levoFLOXacin 500 mg in D5W 500 MG/100 ML BAG IVPB SCH (08:22)
[2018-04-09] MEDS: Omega-3-Acid Ethyl Esters 1 GM Cap PO SCH (08:23)
[2018-04-09] MEDS: Metoprolol Succinate 50 mg XL Tab PO SCH (08:26)
[2018-04-09] MEDS: Pantoprazole 40 mg EC Tab PO SCH (08:26)
[2018-04-09] MEDS: Cholecalciferol 1,000 INTLU TAB PO SCH (08:29)
[2018-04-09 12:10] VITALS: BP 161/76; PULSE 76; TEMP 98.5; O2SAT 93
--- NOTE | 2018-04-09 19:30 | CP.PCM.PN ---
Subjective - Date & Time of Evaluation Date of Evaluation: 04/08/18 Time of Evaluation: 15:25 - Subjective Subjective: Seen and examined at the bed side. Dyspnea but has improved significantly. Patient insists going out and smoke cigarettes and get food from [employer]. Denies chest pain or fever. Objective - Vital Signs/Intake and Output Vital Signs (last 24 hours): Temp Pulse Resp BP Pulse Ox 98.5 F 76 18 161/76 H 93 L 04/09/18 12:00 04/09/18 12:00 04/09/18 12:00 04/09/18 12:00 04/09/18 12:00 Intake and Output: 04/09/18 04/10/18 18:59 06:59 Intake Total 1300 Balance 1300 - Labs Labs: 04/09/18 04:20 04/09/18 04:20 - Constitutional Appears: No Acute Distress - Head Exam Head Exam: ATRAUMATIC, NORMAL INSPECTION, NORMOCEPHALIC - Eye Exam Eye Exam: EOMI, Normal appearance, PERRL Pupil Exam: NORMAL ACCOMODATION, PERRL - ENT Exam ENT Exam: Mucous Membranes Moist, Normal Exam - Neck Exam Neck Exam: Full ROM, Normal Inspection. absent: Lymphadenopathy - Respiratory Exam Respiratory Exam: Decreased Breath Sounds, Wheezes, NORMAL BREATHING PATTERN - Cardiovascular Exam Cardiovascular Exam: REGULAR RHYTHM, +S1, +S2. absent: Murmur - GI/Abdominal Exam GI & Abdominal Exam: Soft, Normal Bowel Sounds. absent: Tenderness - Extremities Exam Extremities Exam: Full ROM, Normal Capillary Refill, Normal Inspection. absent : Joint Swelling, Pedal Edema - Back Exam Back Exam: NORMAL INSPECTION - Neurological Exam Neurological Exam: Alert, Awake, CN II-XII Intact, Normal Gait, Oriented x3 - Psychiatric Exam Psychiatric exam: Normal Affect, Normal Mood - Skin Skin Exam: Dry, Intact, Normal Color, Warm Assessment and Plan (1) Acute respiratory failure with hypercapnia Assessment & Plan: due to COPD Exacerbation Improving Continue current Medication Counselled Quiting smoking Status: Acute (2) Altered mental status Status: Resolved (3) Drug abuse Assessment & Plan: Counselled Status: Chronic
--- NOTE | 2018-04-09 19:31 | CP.PCM.DIS ---
Provider - Provider Date of Admission: 04/07/18 05:16 Attending physician: Joselo Lopez MD Time Spent in preparation of Discharge (in minutes): 25 Hospital Course - Lab Results Lab Results: Most Recent Lab Values WBC 13.0 K/uL (4.8-10.8) H 04/09/18 04:20 RBC 4.45 Mil/uL (3.80-5.20) 04/09/18 04:20 Hgb 12.9 g/dL (12.0-16.0) D 04/09/18 04:20 Hct 36.9 % (34.0-47.0) 04/09/18 04:20 MCV 82.9 fl (81.0-99.0) 04/09/18 04:20 MCH 29.1 pg (27.0-31.0) 04/09/18 04:20 MCHC 35.0 g/dL (33.0-37.0) 04/09/18 04:20 RDW 17.6 % (11.5-14.5) H 04/09/18 04:20 Plt Count 249 K/uL (130-400) 04/09/18 04:20 MPV 6.6 fl (7.2-11.7) L 04/08/18 08:40 Neut % (Auto) 93.8 % (50.0-75.0) H 04/08/18 08:40 Lymph % (Auto) 4.7 % (20.0-40.0) L 04/08/18 08:40 [place] % (Auto) 1.3 % (0.0-10.0) 04/08/18 08:40 Eos % (Auto) 0.0 % (0.0-4.0) 04/08/18 08:40 Baso % (Auto) 0.2 % (0.0-2.0) 04/08/18 08:40 Neut # (Auto) 11.6 K/uL (1.8-7.0) H 04/08/18 08:40 Lymph # (Auto) 0.6 K/uL (1.0-4.3) L 04/08/18 08:40 [place] # (Auto) 0.2 K/uL (0.0-0.8) 04/08/18 08:40 Eos # (Auto) 0.0 K/uL (0.0-0.7) 04/08/18 08:40 Baso # (Auto) 0.0 K/uL (0.0-0.2) 04/08/18 08:40 Neutrophils % (Manual) 95 % (42-75) H 04/08/18 08:40 Band Neutrophils % 1 % (0-2) 04/07/18 03:38 Lymphocytes % (Manual) 4 % (20-50) L 04/08/18 08:40 Monocytes % (Manual) 1 % (0-10) 04/08/18 08:40 Eosinophils % (Manual) 1 % (0-7) 04/07/18 03:38 Platelet Estimate Normal (NORMAL) 04/08/18 08:40 Anisocytosis (manual) Slight 04/08/18 08:40 pCO2 73 mm/Hg (35-45) H* 04/07/18 03:48 pO2 56 mm/Hg (80-100) L 04/07/18 03:48 HCO3 31.3 mmol/L (21-28) H 04/07/18 03:48 ABG pH 7.32 (7.35-7.45) L 04/07/18 03:48 ABG Total CO2 39.8 mmol/L (22-28) H 04/07/18 03:48 ABG O2 Saturation 92.1 % (95-98) L 04/07/18 03:48 ABG O2 Content 15.3 ML/dL (15-23) 04/07/18 03:48 ABG Base Excess 8.7 mmol/L (-2.0-3.0) H 04/07/18 03:48 ABG Hemoglobin 13.3 g/dL (11.7-17.4) 04/07/18 03:48 ABG Carboxyhemoglobin 8.7 % (0.5-1.5) H 04/07/18 03:48 POC ABG HHb (Measured) 7.0 % (0.0-5.0) H 04/07/18 03:48 ABG Methemoglobin 2.4 % (0.0-3.0) 04/07/18 03:48 ABG O2 Capacity 16.6 mL/dL (16-24) 04/07/18 03:48 Vladimir Test Yes 04/07/18 03:48 A-a O2 Difference 2.0 mm/Hg 04/07/18 03:48 Hgb O2 Saturation 81.9 % (95.0-98.0) L 04/07/18 03:48 FiO2 21.0 % 04/07/18 03:48 Crit Value Called To Chriss qureshi 04/07/18 03:48 Crit Value Called By 292 04/07/18 03:48 Crit Value Read Back Y 04/07/18 03:48 Blood Gas Notified Time 358 04/07/18 03:48 Sodium 132 mmol/l (132-148) 04/09/18 04:20 Potassium 4.4 MMOL/L (3.6-5.0) 04/09/18 04:20 Chloride 93 mmol/L (98-107) L 04/09/18 04:20 Carbon Dioxide 33 mmol/L (22-30) H 04/09/18 04:20 Anion Gap 10 (10-20) 04/09/18 04:20 BUN 18 mg/dl (7-17) H 04/09/18 04:20 Creatinine 0.7 mg/dl (0.7-1.2) 04/09/18 04:20 Est GFR ( Amer) > 60 04/09/18 04:20 Est GFR (Non-Af Amer) > 60 04/09/18 04:20 POC Glucose (mg/dL) 114 mg/dL (65-110) H 04/07/18 10:59 Random Glucose 123 mg/dL (65-105) H 04/09/18 04:20 Calcium 9.0 mg/dL (8.4-10.2) 04/09/18 04:20 Total Bilirubin 0.8 mg/dl (0.2-1.3) 04/07/18 03:38 AST 30 U/L (14-36) 04/07/18 03:38 ALT 17 U/L (9-52) 04/07/18 03:38 Alkaline Phosphatase 72 U/L (38-126) 04/07/18 03:38 Troponin I 0.0160 ng/mL (0.00-0.120) 04/07/18 03:38 NT-Pro-B Natriuret Pep 404 pg/ml (0-900) 04/07/18 03:38 Total Protein 6.9 G/DL (6.3-8.2) 04/07/18 03:38 Albumin 3.8 g/dL (3.5-5.0) 04/07/18 03:38 Globulin 3.1 gm/dL (2.2-3.9) 04/07/18 03:38 Albumin/Globulin Ratio 1.3 (1.0-2.1) 04/07/18 03:38 Urine Color Yellow (YELLOW) 04/07/18 11:55 Urine Clarity Cloudy (Clear) 04/07/18 11:55 Urine pH 6.0 (5.0-8.0) 04/07/18 11:55 Ur Specific [place] 1.012 (1.003-1.030) 04/07/18 11:55 Urine Protein Negative mg/dL (NEGATIVE) 04/07/18 11:55 Urine Glucose (UA) Neg mg/dL (Normal) 04/07/18 11:55 Urine Ketones Negative mg/dL (NEGATIVE) 04/07/18 11:55 Urine Blood Negative (NEGATIVE) 04/07/18 11:55 Urine Nitrate Negative (NEGATIVE) 04/07/18 11:55 Urine Bilirubin Negative (NEGATIVE) 04/07/18 11:55 Urine Urobilinogen 0.2-1.0 mg/dL (0.2-1.0) 04/07/18 11:55 Ur Leukocyte Esterase Neg [place]/uL (Negative) 04/07/18 11:55 Urine RBC (Auto) < 1 /hpf (0-3) 04/07/18 11:55 Urine Microscopic WBC 3 /hpf (0-5) 04/07/18 11:55 Ur Squamous Epith Cells 1 /hpf (0-5) 04/07/18 11:55 Urine Bacteria Rare (<OCC) 04/07/18 11:55 Urine Opiates Screen Negative (NEGATIVE) 04/07/18 10:55 Urine Methadone Screen Negative (NEGATIVE) 04/07/18 10:55 Ur Barbiturates Screen Negative (NEGATIVE) 04/07/18 10:55 Ur Phencyclidine Scrn Negative (NEGATIVE) 04/07/18 10:55 Ur Amphetamines Screen Negative (NEGATIVE) 04/07/18 10:55 U Benzodiazepines Scrn Positive (NEGATIVE) 04/07/18 10:55 U Oth Cocaine Metabols Negative (NEGATIVE) 04/07/18 10:55 U Cannabinoids Screen Negative (NEGATIVE) 04/07/18 10:55 Alcohol, Quantitative < 10 mg/dl (0-10) 04/07/18 03:38 Discharge Exam - Head Exam Head Exam: ATRAUMATIC, NORMAL INSPECTION, NORMOCEPHALIC Discharge Plan - Discharge Medications Prescriptions: Levofloxacin [Levaquin] 500 mg PO DAILY #5 tablet Methylprednisolone [Medrol Dose Pack (21 tabs)] 4 mg PO DAILY #21 mg - Follow Up Plan Condition: FAIR Disposition: HOME/ ROUTINE Additional Instructions: pt. cleared for discharge to Home today by and Dr.Seman Benson rx for meds sent to pharmacy f/u with pmd in 1 week
--- NOTE | 2018-04-11 05:36 | CP.PCM.DIS ---
Provider - Provider Date of Admission: 04/07/18 05:16 Attending physician: Joselo Lopez MD Time Spent in preparation of Discharge (in minutes): 25 Diagnosis - Discharge Diagnosis (1) Drug abuse Status: Acute (2) Altered mental status Status: Acute (3) COPD (chronic obstructive pulmonary disease) Status: Acute (4) Gait abnormality Status: Acute (5) Hypertension Status: Acute Hospital Course - Lab Results Lab Results: Most Recent Lab Values WBC 13.0 K/uL (4.8-10.8) H 04/09/18 04:20 RBC 4.45 Mil/uL (3.80-5.20) 04/09/18 04:20 Hgb 12.9 g/dL (12.0-16.0) D 04/09/18 04:20 Hct 36.9 % (34.0-47.0) 04/09/18 04:20 MCV 82.9 fl (81.0-99.0) 04/09/18 04:20 MCH 29.1 pg (27.0-31.0) 04/09/18 04:20 MCHC 35.0 g/dL (33.0-37.0) 04/09/18 04:20 RDW 17.6 % (11.5-14.5) H 04/09/18 04:20 Plt Count 249 K/uL (130-400) 04/09/18 04:20 MPV 6.6 fl (7.2-11.7) L 04/08/18 08:40 Neut % (Auto) 93.8 % (50.0-75.0) H 04/08/18 08:40 Lymph % (Auto) 4.7 % (20.0-40.0) L 04/08/18 08:40 [place] % (Auto) 1.3 % (0.0-10.0) 04/08/18 08:40 Eos % (Auto) 0.0 % (0.0-4.0) 04/08/18 08:40 Baso % (Auto) 0.2 % (0.0-2.0) 04/08/18 08:40 Neut # (Auto) 11.6 K/uL (1.8-7.0) H 04/08/18 08:40 Lymph # (Auto) 0.6 K/uL (1.0-4.3) L 04/08/18 08:40 [place] # (Auto) 0.2 K/uL (0.0-0.8) 04/08/18 08:40 Eos # (Auto) 0.0 K/uL (0.0-0.7) 04/08/18 08:40 Baso # (Auto) 0.0 K/uL (0.0-0.2) 04/08/18 08:40 Neutrophils % (Manual) 95 % (42-75) H 04/08/18 08:40 Band Neutrophils % 1 % (0-2) 04/07/18 03:38 Lymphocytes % (Manual) 4 % (20-50) L 04/08/18 08:40 Monocytes % (Manual) 1 % (0-10) 04/08/18 08:40 Eosinophils % (Manual) 1 % (0-7) 04/07/18 03:38 Platelet Estimate Normal (NORMAL) 04/08/18 08:40 Anisocytosis (manual) Slight 04/08/18 08:40 pCO2 73 mm/Hg (35-45) H* 04/07/18 03:48 pO2 56 mm/Hg (80-100) L 04/07/18 03:48 HCO3 31.3 mmol/L (21-28) H 04/07/18 03:48 ABG pH 7.32 (7.35-7.45) L 04/07/18 03:48 ABG Total CO2 39.8 mmol/L (22-28) H 04/07/18 03:48 ABG O2 Saturation 92.1 % (95-98) L 04/07/18 03:48 ABG O2 Content 15.3 ML/dL (15-23) 04/07/18 03:48 ABG Base Excess 8.7 mmol/L (-2.0-3.0) H 04/07/18 03:48 ABG Hemoglobin 13.3 g/dL (11.7-17.4) 04/07/18 03:48 ABG Carboxyhemoglobin 8.7 % (0.5-1.5) H 04/07/18 03:48 POC ABG HHb (Measured) 7.0 % (0.0-5.0) H 04/07/18 03:48 ABG Methemoglobin 2.4 % (0.0-3.0) 04/07/18 03:48 ABG O2 Capacity 16.6 mL/dL (16-24) 04/07/18 03:48 Vladimir Test Yes 04/07/18 03:48 A-a O2 Difference 2.0 mm/Hg 04/07/18 03:48 Hgb O2 Saturation 81.9 % (95.0-98.0) L 04/07/18 03:48 FiO2 21.0 % 04/07/18 03:48 Crit Value Called To Chriss qureshi 04/07/18 03:48 Crit Value Called By Williams 04/07/18 03:48 Crit Value Read Back Y 04/07/18 03:48 Blood Gas Notified Time 358 04/07/18 03:48 Sodium 132 mmol/l (132-148) 04/09/18 04:20 Potassium 4.4 MMOL/L (3.6-5.0) 04/09/18 04:20 Chloride 93 mmol/L (98-107) L 04/09/18 04:20 Carbon Dioxide 33 mmol/L (22-30) H 04/09/18 04:20 Anion Gap 10 (10-20) 04/09/18 04:20 BUN 18 mg/dl (7-17) H 04/09/18 04:20 Creatinine 0.7 mg/dl (0.7-1.2) 04/09/18 04:20 Est GFR ( Amer) > 60 04/09/18 04:20 Est GFR (Non-Af Amer) > 60 04/09/18 04:20 POC Glucose (mg/dL) 114 mg/dL (65-110) H 04/07/18 10:59 Random Glucose 123 mg/dL (65-105) H 04/09/18 04:20 Calcium 9.0 mg/dL (8.4-10.2) 04/09/18 04:20 Total Bilirubin 0.8 mg/dl (0.2-1.3) 04/07/18 03:38 AST 30 U/L (14-36) 04/07/18 03:38 ALT 17 U/L (9-52) 04/07/18 03:38 Alkaline Phosphatase 72 U/L (38-126) 04/07/18 03:38 Troponin I 0.0160 ng/mL (0.00-0.120) 04/07/18 03:38 NT-Pro-B Natriuret Pep 404 pg/ml (0-900) 04/07/18 03:38 Total Protein 6.9 G/DL (6.3-8.2) 04/07/18 03:38 Albumin 3.8 g/dL (3.5-5.0) 04/07/18 03:38 Globulin 3.1 gm/dL (2.2-3.9) 04/07/18 03:38 Albumin/Globulin Ratio 1.3 (1.0-2.1) 04/07/18 03:38 Urine Color Yellow (YELLOW) 04/07/18 11:55 Urine Clarity Cloudy (Clear) 04/07/18 11:55 Urine pH 6.0 (5.0-8.0) 04/07/18 11:55 Ur Specific Warren 1.012 (1.003-1.030) 04/07/18 11:55 Urine Protein Negative mg/dL (NEGATIVE) 04/07/18 11:55 Urine Glucose (UA) Neg mg/dL (Normal) 04/07/18 11:55 Urine Ketones Negative mg/dL (NEGATIVE) 04/07/18 11:55 Urine Blood Negative (NEGATIVE) 04/07/18 11:55 Urine Nitrate Negative (NEGATIVE) 04/07/18 11:55 Urine Bilirubin Negative (NEGATIVE) 04/07/18 11:55 Urine Urobilinogen 0.2-1.0 mg/dL (0.2-1.0) 04/07/18 11:55 Ur Leukocyte Esterase Neg Gabby/uL (Negative) 04/07/18 11:55 Urine RBC (Auto) < 1 /hpf (0-3) 04/07/18 11:55 Urine Microscopic WBC 3 /hpf (0-5) 04/07/18 11:55 Ur Squamous Epith Cells 1 /hpf (0-5) 04/07/18 11:55 Urine Bacteria Rare (<OCC) 04/07/18 11:55 Urine Opiates Screen Negative (NEGATIVE) 04/07/18 10:55 Urine Methadone Screen Negative (NEGATIVE) 04/07/18 10:55 Ur Barbiturates Screen Negative (NEGATIVE) 04/07/18 10:55 Ur Phencyclidine Scrn Negative (NEGATIVE) 04/07/18 10:55 Ur Amphetamines Screen Negative (NEGATIVE) 04/07/18 10:55 U Benzodiazepines Scrn Positive (NEGATIVE) 04/07/18 10:55 U Oth Cocaine Metabols Negative (NEGATIVE) 04/07/18 10:55 U Cannabinoids Screen Negative (NEGATIVE) 04/07/18 10:55 Alcohol, Quantitative < 10 mg/dl (0-10) 04/07/18 03:38 Discharge Exam - Head Exam Head Exam: ATRAUMATIC, NORMAL INSPECTION, NORMOCEPHALIC Discharge Plan - Discharge Medications Prescriptions: Levofloxacin [Levaquin] 500 mg PO DAILY #5 tablet Methylprednisolone [Medrol Dose Pack (21 tabs)] 4 mg PO DAILY #21 mg - Follow Up Plan Condition: FAIR Disposition: HOME/ ROUTINE Instructions: Altered Mental Status (GEN), Hypertension (DC), Hypertension (GEN ) Additional Instructions: pt. cleared for discharge to Home today by and Dr.Seman Benson rx for meds sent to pharmacy f/u with pmd in 1 week
== END 2018-04-09 13:18 | disposition home or self-care (01) | DRG 189 ==
LOC: H.ER 02:29 → H.ERHOLD 05:16 → H.TEL 12:09
PROVIDERS: ADMIT Internal Medicine; ATTEND Internal Medicine
PROC: 5A09457 Assistance with Respiratory Ventilation, 24-96 Consecutive Hours, Continuous Positive Airway Pressure (ICD-10-PCS; principal; 2018-04-07)
DX: J96.02 Acute respiratory failure with hypercapnia (principal); J44.1 Chronic obstructive pulmonary disease with (acute) exacerbation; Z91.19 Patient's noncompliance with other medical treatment and regimen; Z85.51 Personal history of malignant neoplasm of bladder; M79.7 Fibromyalgia; F17.210 Nicotine dependence, cigarettes, uncomplicated; I10 Essential (primary) hypertension; F41.8 Other specified anxiety disorders; K29.70 Gastritis, unspecified, without bleeding; M19.90 Unspecified osteoarthritis, unspecified site; Z71.51 Drug abuse counseling and surveillance of drug abuser; R26.9 Unspecified abnormalities of gait and mobility; F19.10 Other psychoactive substance abuse, uncomplicated

== ENCOUNTER 2018-06-22 17:19 | Observation (INO) | payer MEDICARE ==
[2018-06-22 17:19] VITALS: BMI 21.0
--- NOTE | 2018-06-22 17:45 | ED PDOC ---
HPI: General Adult Time Seen by Provider: 06/22/18 17:42 Chief Complaint (Nursing): Shortness Of Breath Chief Complaint (Provider): SOB, SI History Per: Patient Additional Complaint(s): 68-year-old female presents to emergency department complaining of shortness of breath 2 days. Patient also states that she is currently suicidal and is "having a nervous breakdown." Patient is currently non-domiciled and states that she no longer wants to live like that she is living. She is a half-pack per day smoker. She states she is not on oxygen daily but feels that she may benefit from this. Upon arrival she complains of shortness of breath and also states that she has constant thoughts of wanting to harm herself. She denies any actual plan. No associated alcohol or drug use. PMD: none Past Medical History Reviewed: Historical Data, Nursing Documentation, Vital Signs Vital Signs: Last Vital Signs Temp 97.4 F L 06/22/18 17:23 Pulse 106 H 06/22/18 17:23 Resp 28 H 06/22/18 17:23 BP 147/80 06/22/18 17:23 Pulse Ox 97 06/22/18 19:03 - Medical History PMH: Anxiety, Arthritis, Asthma, Back Problems (herniated disc), COPD, Depression, Fibromyalgia, Gastritis, HTN, Malignancy (bladder CA) - Surgical History Surgical History: Endoscopy Other surgeries: cystoscopy, hysterectomy - Family History Family History: States: No Known Family Hx - Living Arrangements Living Arrangements: Other (lives in skilled nursing) - Social History Current smoker - smoking cessation education provided: Yes (1/2 ppd smoker) Alcohol: None Drugs: Denies - Home Medications Home Medications: Ambulatory Orders Medication Instructions Recorded Albuterol HFA [Ventolin HFA 90 2 puff IH [id number] PRN 09/26/17 mcg/actuation (8 g)] Gabapentin 300 mg PO Q8 09/26/17 Oxybutynin Chloride [Oxybutynin 15 mg PO Q12H 09/26/17 Chloride ER] Valsartan [Diovan] 80 mg PO DAILY 09/26/17 Baclofen [Lioresal] 10 mg PO Q8H 01/21/18 Cholecalciferol [Vitamin D 1000 IU] 1,000 unit PO DAILY 01/21/18 Fluticasone/Vilanterol [Breo 1 puff IH DAILY 01/21/18 Ellipta 200-25 Mcg INH] LORazepam [Ativan] 0.5 mg PO DAILY 01/21/18 Lactobacillus Combination No.8 1 cap PO DAILY 01/21/18 [Adult Probiotic] Metoprolol Succinate XL [Toprol XL] 50 mg PO BID #10 tab 01/21/18 Naproxen 375 mg PO Q12 PRN 01/21/18 Upton-3 Fatty Acids/Fish Oil [Fish 1 cap PO DAILY 01/21/18 Oil 1,000 mg Capsule] Omeprazole 20 mg PO DAILY 01/21/18 Sertraline [Zoloft] 50 mg PO DAILY 01/21/18 clonazePAM [Klonopin] 0.5 mg PO Q12 PRN 01/21/18 oxyCODONE [oxyCODONE Immediate 10 mg PO Q6 PRN 01/21/18 Release Tab] Levofloxacin [Levaquin] 500 mg PO DAILY #5 tablet 04/09/18 Methylprednisolone [Medrol Dose 4 mg PO DAILY #21 mg 04/09/18 Pack (21 tabs)] - Allergies Allergies/Adverse Reactions: Allergies Allergy/AdvReac Type Severity Reaction Status Date / Time No Known Allergies Allergy Verified 06/22/18 17:22 Review of Systems ROS Statement: Except As Marked, All Systems Reviewed And Found Negative Constitutional: Negative for: Fever, Chills Cardiovascular: Negative for: Chest Pain Respiratory: Positive for: Shortness of Breath, SOB with Exertion. Negative for : Cough, Hemoptysis Gastrointestinal: Negative for: Nausea, Vomiting Genitourinary Female: Positive for: Dysuria Psych: Positive for: Suicidal ideation Physical Exam - Reviewed Nursing Documentation Reviewed: Yes Vital Signs Reviewed: Yes - Physical Exam Appears: Positive for: Well, Non-toxic, No Acute Distress Skin: Positive for: Normal Color. Negative for: Rash Eye Exam: Positive for: Normal appearance Cardiovascular/Chest: Positive for: Regular Rate, Rhythm Respiratory: Positive for: Normal Breath Sounds, Wheezing, Respiratory Distress Gastrointestinal/Abdominal: Positive for: Soft. Negative for: Tenderness, Distended, Guarding, Rebound Back: Positive for: Normal Inspection Extremity: Positive for: Normal ROM Neurologic/Psych: Positive for: Alert, Oriented, Mood/Affect (anxious) - Laboratory Results Result Diagrams: 06/22/18 17:57 06/22/18 17:57 - ECG Interpretation Of ECG: Normal sinus rhythm at 97 bpm, reviewed by PA and ED attending O2 Sat by Pulse Oximetry: 97 Pulse Ox Interpretation: Normal - Other Rad CXR X-Ray: Interpreted by Me, Viewed By Me X-Ray Interpretation: hyperinflation, no infiltrate Nebulizer Treatments/Peak Flow - Duonebs Number of Bronchodilator Doses given?: 2 (duoneb) - Steroid Treatment Steroid: IV (125 mg solumedrol) - Clinical Response Clinical Response: Unchanged (Patient reports no improvement after medications were given.) Medical Decision Making Medical Decision Makin68 year old with shortness of breath and suicidal ideation Patient is short of breath upon arrival, oxygen saturation is 92% on room air, patient was placed on 2 L of oxygen via nasal cannula. 02 sat increased to 97% with oxygen. Plan: 1:1 CBC CMP BAL Troponin UDS UA CXR EKG Duoneb x 2 Solumedrol 125 mg IV Patient states she does not feel any better after DuoNebs and Solu-Medrol dose given. Patient states she has no primary doctor at this time. Case was discussed with medicine crutching contractor Dr. Hall who will admit patient. As per Dr. Hall , patient will be given solumedrol 80 mg IV q 6 hrs. patient will remain on one -to-one while admitted secondary to suicidal ideation and will be seen by psychiatrist on consult. Disposition - Clinical Impression Clinical Impression: COPD exacerbation, Dyspnea - Patient ED Disposition Is Patient to be Admitted: Yes - Disposition Disposition Time: 19:17 Condition: FAIR Forms: [facility] (Slovenian) - Pt Status Changed To: Hospital Disposition Of: Observation Results - Lab Results Lab Results: 06/22/18 06/22/18 06/22/18 18:14 18:14 17:57 WBC RBC Hgb Hct MCV MCH MCHC RDW Plt Count MPV Neut % (Auto) Lymph % (Auto) [place] % (Auto) Eos % (Auto) Baso % (Auto) Neut # (Auto) Lymph # (Auto) [place] # (Auto) Eos # (Auto) Baso # (Auto) Neutrophils % (Manual) Lymphocytes % (Manual) Monocytes % (Manual) Platelet Estimate RBC Morphology D-Dimer, Quantitative < 200 Sodium Potassium Chloride Carbon Dioxide Anion Gap BUN Creatinine Est GFR ( Amer) Est GFR (Non-Af Amer) Random Glucose Calcium Total Bilirubin AST ALT Alkaline Phosphatase Troponin I Total Protein Albumin Globulin Albumin/Globulin Ratio Urine Color Yellow Urine Clarity Slighty-cloudy Urine pH 5.0 Ur Specific [place] 1.021 Urine Protein 30 Urine Glucose (UA) Neg Urine Ketones Negative Urine Blood Negative Urine Nitrate Negative Urine Bilirubin Negative Urine Urobilinogen 2.0 H Ur Leukocyte Esterase Neg Urine RBC (Auto) 2 Urine Microscopic WBC 2 Ur Squamous Epith Cells < 1 Urine Opiates Screen Negative Urine Methadone Screen Negative Ur Barbiturates Screen Negative Ur Phencyclidine Scrn Negative Ur Amphetamines Screen Negative U Benzodiazepines Scrn Negative U Oth Cocaine Metabols Negative U Cannabinoids Screen Negative 06/22/18 06/22/18 17:57 17:57 WBC 13.7 H RBC 4.58 Hgb 13.7 Hct 39.5 MCV 86.2 D MCH 29.9 MCHC 34.6 RDW 14.5 Plt Count 259 MPV 6.7 L Neut % (Auto) 85.6 H Lymph % (Auto) 7.8 L [place] % (Auto) 5.8 Eos % (Auto) 0.1 Baso % (Auto) 0.7 Neut # (Auto) 11.7 H Lymph # (Auto) 1.1 [place] # (Auto) 0.8 Eos # (Auto) 0.0 Baso # (Auto) 0.1 Neutrophils % (Manual) 85 H Lymphocytes % (Manual) 11 L Monocytes % (Manual) 4 Platelet Estimate Normal RBC Morphology Normal D-Dimer, Quantitative Sodium 134 Potassium 4.3 Chloride 95 L Carbon Dioxide 34 H Anion Gap 9 L BUN 27 H Creatinine 0.6 L Est GFR ( Amer) > 60 Est GFR (Non-Af Amer) > 60 Random Glucose 126 H Calcium 9.2 Total Bilirubin 0.4 AST 20 ALT 21 Alkaline Phosphatase 74 Troponin I < 0.0120 Total Protein 7.0 Albumin 3.9 Globulin 3.1 Albumin/Globulin Ratio 1.3 Urine Color Urine Clarity Urine pH Ur Specific [place] Urine Protein Urine Glucose (UA) Urine Ketones Urine Blood Urine Nitrate Urine Bilirubin Urine Urobilinogen Ur Leukocyte Esterase Urine RBC (Auto) Urine Microscopic WBC Ur Squamous Epith Cells Urine Opiates Screen Urine Methadone Screen Ur Barbiturates Screen Ur Phencyclidine Scrn Ur Amphetamines Screen U Benzodiazepines Scrn U Oth Cocaine Metabols U Cannabinoids Screen
[2018-06-22 18:00] LABS: BASO # 0.1 K/uL (0.0-0.2); BASO % 0.7 % (0.0-2.0); EOS % 0.1 % (0.0-4.0); HEMOGLOBIN 13.7 g/dL (12.0-16.0); LYMPH # 1.1 K/uL (1.0-4.3); LYMPH % 7.8 % (20.0-40.0); MEAN CELL VOLUME 86.2 fl (81.0-99.0); MEAN CORPUSCULAR HEMOGLOBIN 29.9 pg (27.0-31.0); MEAN CORPUSCULAR HGB CONC 34.6 g/dL (33.0-37.0); MEAN PLATELET VOLUME 6.7 fl (7.2-11.7); MONO # 0.8 K/uL (0.0-0.8); MONO % 5.8 % (0.0-10.0); NEUT # 11.7 K/uL (1.8-7.0); NEUT % 85.6 % (50.0-75.0); PLATELET COUNT 259 K/uL (130-400); RBC 4.58 Mil/uL (3.80-5.20); RED CELL DISTRIBUTION WIDTH 14.5 % (11.5-14.5); WHITE BLOOD COUNT 13.7 K/uL (4.8-10.8)
[2018-06-22 18:11] LABS: ALB/GLOB RATIO 1.3 (1.0-2.1); ALBUMIN 3.9 g/dL (3.5-5.0); ALT/SGPT 21 U/L (9-52); AST/SGOT 20 U/L (14-36); BLOOD UREA NITROGEN 27 mg/dl (7-17); CALCIUM 9.2 mg/dL (8.4-10.2); GFR NON-AFRICAN AMERICAN > 60
[2018-06-22 18:33] LABS: SQUAMOUS EPITHIAL < 1 /hpf (0-5); URINE BILIRUBIN NEGATIVE (NEGATIVE); URINE BLOOD NEGATIVE (NEGATIVE); URINE CLARITY SLIGHTY-CLOUDY (Clear); URINE COLOR YELLOW (YELLOW); URINE GLUCOSE (UA) NEG (Normal); URINE LEUKOCYTE ESTERASE NEG Leu/uL (Negative); URINE PROTEIN 30 mg/dL (NEGATIVE)
[2018-06-22 18:47] LABS: OPIATES, UR NEGATIVE (NEGATIVE)
[2018-06-22 18:54] LABS: BARBITURATES, UR NEGATIVE (NEGATIVE); BENZODIAZEPINES, UR NEGATIVE (NEGATIVE); PHENCYCLIDINE, UR NEGATIVE (NEGATIVE)
[2018-06-22 19:14] LABS: LYMPHOCYTE 11 % (20-50); MONOCYTE 4 % (0-10); NEUTROPHIL 85 % (42-75); PLATELET ESTIMATE NORMAL (NORMAL); TOTAL CELLS COUNTED 100
[2018-06-22] MEDS ORDERED: Albuterol-Ipratrop 3 mg / 0.5 (3 ml) UD INH STA (19:15)
[2018-06-22] MEDS ORDERED: Lidocaine/Prilocaine CREAM 5GM TP ONE (19:15)
[2018-06-22] MEDS ORDERED: Albuterol 0.083% Inhal Sol (2.5 mg/3 mL) UD INH PRN (19:23)
[2018-06-22] MEDS ORDERED: methylPREDNISolone 80 MG in Sodium Chloride 0.9% 50 ML IV SCH (19:30)
[2018-06-22 19:44] LABS: ABG ALLEN TEST YES; ARTERIAL BLOOD GAS HCO3 30.8 mmol/L (21-28); ARTERIAL BLOOD GAS HEMOGLOBIN 13.6 g/dL (11.7-17.4); ARTERIAL BLOOD GAS O2 CAPACITY 17.7 mL/dL (16-24); ARTERIAL BLOOD GAS O2 CONTENT 16.3 ML/dL (15-23); ARTERIAL BLOOD GAS O2 SAT 92.2 % (95-98); ARTERIAL BLOOD GAS PCO2 63 mm/Hg (35-45); ARTERIAL BLOOD GAS PH 7.36 (7.35-7.45); ARTERIAL BLOOD GAS PO2 55 mm/Hg (80-100); ARTERIAL BLOOD GAS TCO2 37.5 mmol/L (22-28)
--- NOTE | 2018-06-22 19:56 | CARD ---
APPROVED REPORT Date of service: 06/22/2018 EKG Measurement Heart [id number] <Conclusion> Sinus rhythm with marked sinus arrhythmia Nonspecific ST abnormality Abnormal ECG
[2018-06-22] MEDS ORDERED: Albuterol-Ipratrop 3 mg / 0.5 (3 ml) UD ONE (20:32)
[2018-06-22] MEDS ORDERED: Albuterol 0.083% Inhal Sol (2.5 mg/3 mL) UD ONE (20:33)
[2018-06-22] MEDS ORDERED: MethylPREDNISolone 40 mg Vial ONE (20:33)
[2018-06-22] MEDS: Metoprolol Succinate 50 mg XL Tab PO SCH (23:24)
[2018-06-23] MEDS: Albuterol-Ipratrop 3 mg / 0.5 (3 ml) UD INH SCH ×4 (01:00→19:18)
[2018-06-23] MEDS: MethylPREDNISolone 40 mg Vial IV SCH ×4 (03:28→21:47)
--- NOTE | 2018-06-23 08:32 | RAD ---
Date of service: 06/22/2018 HISTORY: SOB COMPARISON: No prior. FINDINGS: LUNGS: No active pulmonary disease. PLEURA: No significant pleural effusion identified, no pneumothorax apparent. CARDIOVASCULAR: Normal. OSSEOUS STRUCTURES: No significant abnormalities. VISUALIZED UPPER ABDOMEN: Normal. OTHER FINDINGS: None. IMPRESSION: No active disease.
[2018-06-23] MEDS ORDERED: Pantoprazole 20 mg EC Tab PO SCH (09:00)
[2018-06-23] MEDS: Metoprolol Succinate 50 mg XL Tab PO SCH ×2 (09:05→17:02)
[2018-06-23] MEDS: Cholecalciferol 1,000 INTLU TAB PO SCH (09:05)
--- NOTE | 2018-06-23 10:26 | CP.PCM.CON ---
History of Present Illness - History of Present Illness History of Present Illness: Psychiatry consult note CC: "I'm having a nervous breakdown." HPI: 68 yo female w/ h/o depression, presents w/ SOB and suicidal ideation. Patient was sleepy during the evaluation, but was able to state that she feels depressed and anxious w/ passive suicidal ideation that she would , w/o active plan or intent. She feels hopeless and helpless. No AH/VH/paranoia/ delusions/HI. PMHx: COPD, HTN, Gastritis ALL: NKDA SHx: Homeless, unemployed, denies drugs/etoh; smokes <1ppd MSE: A + O x 3, calm, sleepy during evaluation, mood/affect- constricted, thought process- linear/coherent, thought content- no delusions, denies AH/VH; passive SI; no HI Impression: 68 yo female admitted w/ SOB and worsening depression. -Patient would benefit from psychiatric admission when patient is more alert and medically stable -Continue Zoloft -Continue 1:1 for safety Past Patient History - Infectious Disease Hx of Infectious Diseases: None - Past Medical History & Family History Past Medical History?: Yes - Past Social History Smoking Status: Current Some Days Smoker - CARDIAC Hx Cardiac Disorders: Yes Hx Hypertension: Yes - PULMONARY Hx Respiratory Disorders: Yes Hx Asthma: Yes Hx Chronic Obstructive Pulmonary Disease (COPD): Yes - NEUROLOGICAL Hx Neurological Disorder: No - HEENT Hx HEENT Problems: No - RENAL Hx Chronic Kidney Disease: No - ENDOCRINE/METABOLIC Hx Endocrine Disorders: No - HEMATOLOGICAL/ONCOLOGICAL Hx Blood Disorders: No Hx AIDS: No Hx Human Immunodeficiency Virus (HIV): No - INTEGUMENTARY Hx Dermatological Problems: No - MUSCULOSKELETAL/RHEUMATOLOGICAL Hx Musculoskeletal Disorders: Yes Hx Arthritis: Yes Hx Falls: No Other/Comment: fibromyalgia - GASTROINTESTINAL Hx Gastrointestinal Disorders: Yes Hx Gastritis: Yes - GENITOURINARY/GYNECOLOGICAL Hx Genitourinary Disorders: Yes Hx Bladder Cancer: Yes Other/Comment: FREGUENT URINATION - PSYCHIATRIC Hx Psychophysiologic Disorder: Yes Hx Anxiety: Yes Hx Depression: Yes Hx Substance Use: No - SURGICAL HISTORY Hx Surgeries: Yes Hx Herniorrhaphy: Yes Hx Orthopedic Surgery: Yes (left knee replacement) Other/Comment: TURBT - ANESTHESIA Hx Anesthesia: Yes Hx Anesthesia Reactions: No Hx Malignant Hyperthermia: No Has any member of the family had a problem w/ anesthesia?: No Meds Allergies/Adverse Reactions: Allergies Allergy/AdvReac Type Severity Reaction Status Date / Time No Known Allergies Allergy Verified 06/22/18 17:22 - Medications Medications: Current Medications Albuterol Sulfate (Albuterol 0.083% Inhal Jen (2.5 Mg/3 Ml) Ud) 2.5 mg INH RQ4 PRN PRN Reason: WHEEZING Last Admin: 06/22/18 21:06 Dose: 2.5 mg Albuterol/Ipratropium (Duoneb 3 Mg/0.5 Mg (3 Ml) Ud) 3 ml INH RQ6 [facility] Last Admin: 06/23/18 07:46 Dose: 3 ml Baclofen (Lioresal) 10 mg PO Q8H [facility] Last Admin: 06/23/18 06:57 Dose: Not Given Cholecalciferol (Vitamin D) 1,000 intlu PO DAILY [facility] Last Admin: 06/23/18 09:05 Dose: 1,000 intlu Gabapentin (Neurontin) 300 mg PO Q8 [facility] Last Admin: 06/23/18 09:04 Dose: 300 mg Lorazepam (Ativan) 0.5 mg PO DAILY [facility] Last Admin: 06/23/18 09:09 Dose: 0.5 mg Losartan Potassium (Cozaar) 100 mg PO DAILY [facility] Last Admin: 06/23/18 09:07 Dose: 100 mg Methylprednisolone (Solu-Medrol) 80 mg IV Q6 [facility] Last Admin: 06/23/18 09:09 Dose: 80 mg Metoprolol Succinate (Toprol Xl) 50 mg PO BID [facility] Last Admin: 06/23/18 09:05 Dose: 50 mg Naproxen (Naprosyn Tab) 375 mg PO Q12 PRN PRN Reason: Pain, moderate (4-7) Pantoprazole Sodium (Protonix Ec Tab) 20 mg PO DAILY [facility] Last Admin: 06/23/18 09:06 Dose: 20 mg Sertraline HCl (Zoloft) 50 mg PO DAILY [facility] Last Admin: 06/23/18 09:05 Dose: 50 mg Results - Vital Signs Recent Vital Signs: Last Vital Signs Temp 97.1 F L 06/23/18 08:26 Pulse 73 06/23/18 09:07 Resp 20 06/23/18 08:26 BP 158/78 H 06/23/18 09:07 Pulse Ox 96 06/23/18 08:26 - Labs Result Diagrams: 06/22/18 17:57 06/22/18 17:57 Labs: Laboratory Results - last 24 hr 06/22/18 06/22/18 06/22/18 17:57 17:57 17:57 WBC 13.7 H RBC 4.58 Hgb 13.7 Hct 39.5 MCV 86.2 D MCH 29.9 MCHC 34.6 RDW 14.5 Plt Count 259 MPV 6.7 L Neut % (Auto) 85.6 H Lymph % (Auto) 7.8 L [place] % (Auto) 5.8 Eos % (Auto) 0.1 Baso % (Auto) 0.7 Neut # (Auto) 11.7 H Lymph # (Auto) 1.1 [place] # (Auto) 0.8 Eos # (Auto) 0.0 Baso # (Auto) 0.1 Neutrophils % (Manual) 85 H Lymphocytes % (Manual) 11 L Monocytes % (Manual) 4 Platelet Estimate Normal RBC Morphology Normal D-Dimer, Quantitative < 200 pCO2 pO2 HCO3 ABG pH ABG Total CO2 ABG O2 Saturation ABG O2 Content ABG Base Excess ABG Hemoglobin ABG Carboxyhemoglobin POC ABG HHb (Measured) ABG Methemoglobin ABG O2 Capacity Vladimir Test A-a O2 Difference Hgb O2 Saturation Vent Mode FiO2 Sodium 134 Potassium 4.3 Chloride 95 L Carbon Dioxide 34 H Anion Gap 9 L BUN 27 H Creatinine 0.6 L Est GFR ( Amer) > 60 Est GFR (Non-Af Amer) > 60 Random Glucose 126 H Calcium 9.2 Total Bilirubin 0.4 AST 20 ALT 21 Alkaline Phosphatase 74 Troponin I < 0.0120 NT-Pro-B Natriuret Pep Total Protein 7.0 Albumin 3.9 Globulin 3.1 Albumin/Globulin Ratio 1.3 Vitamin B12 TSH 3rd Generation Urine Color Urine Clarity Urine pH Ur Specific [place] Urine Protein Urine Glucose (UA) Urine Ketones Urine Blood Urine Nitrate Urine Bilirubin Urine Urobilinogen Ur Leukocyte Esterase Urine RBC (Auto) Urine Microscopic WBC Ur Squamous Epith Cells Urine Opiates Screen Urine Methadone Screen Ur Barbiturates Screen Ur Phencyclidine Scrn Ur Amphetamines Screen U Benzodiazepines Scrn U Oth Cocaine Metabols U Cannabinoids Screen 06/22/18 06/22/18 06/22/18 18:14 18:14 19:35 WBC RBC Hgb Hct MCV MCH MCHC RDW Plt Count MPV Neut % (Auto) Lymph % (Auto) [place] % (Auto) Eos % (Auto) Baso % (Auto) Neut # (Auto) Lymph # (Auto) [place] # (Auto) Eos # (Auto) Baso # (Auto) Neutrophils % (Manual) Lymphocytes % (Manual) Monocytes % (Manual) Platelet Estimate RBC Morphology D-Dimer, Quantitative pCO2 63 H pO2 55 L HCO3 30.8 H ABG pH 7.36 ABG Total CO2 37.5 H ABG O2 Saturation 92.2 L ABG O2 Content 16.3 ABG Base Excess 7.9 H ABG Hemoglobin 13.6 ABG Carboxyhemoglobin 5.0 H POC ABG HHb (Measured) 7.2 H ABG Methemoglobin 2.4 ABG O2 Capacity 17.7 Vladimir Test Yes A-a O2 Difference 16.0 Hgb O2 Saturation 85.4 L Vent Mode Room air FiO2 21.0 Sodium Potassium Chloride Carbon Dioxide Anion Gap BUN Creatinine Est GFR ( Amer) Est GFR (Non-Af Amer) Random Glucose Calcium Total Bilirubin AST ALT Alkaline Phosphatase Troponin I NT-Pro-B Natriuret Pep Total Protein Albumin Globulin Albumin/Globulin Ratio Vitamin B12 TSH 3rd Generation Urine Color Yellow Urine Clarity Slighty-cloudy Urine pH 5.0 Ur Specific [place] 1.021 Urine Protein 30 Urine Glucose (UA) Neg Urine Ketones Negative Urine Blood Negative Urine Nitrate Negative Urine Bilirubin Negative Urine Urobilinogen 2.0 H Ur Leukocyte Esterase Neg Urine RBC (Auto) 2 Urine Microscopic WBC 2 Ur Squamous Epith Cells < 1 Urine Opiates Screen Negative Urine Methadone Screen Negative Ur Barbiturates Screen Negative Ur Phencyclidine Scrn Negative Ur Amphetamines Screen Negative U Benzodiazepines Scrn Negative U Oth Cocaine Metabols Negative U Cannabinoids Screen Negative 06/22/18 06/23/18 19:38 06:45 WBC RBC Hgb Hct MCV MCH MCHC RDW Plt Count MPV Neut % (Auto) Lymph % (Auto) [place] % (Auto) Eos % (Auto) Baso % (Auto) Neut # (Auto) Lymph # (Auto) [place] # (Auto) Eos # (Auto) Baso # (Auto) Neutrophils % (Manual) Lymphocytes % (Manual) Monocytes % (Manual) Platelet Estimate RBC Morphology D-Dimer, Quantitative pCO2 pO2 HCO3 ABG pH ABG Total CO2 ABG O2 Saturation ABG O2 Content ABG Base Excess ABG Hemoglobin ABG Carboxyhemoglobin POC ABG HHb (Measured) ABG Methemoglobin ABG O2 Capacity [place] Test A-a O2 Difference Hgb O2 Saturation Vent Mode FiO2 Sodium Potassium Chloride Carbon Dioxide Anion Gap BUN Creatinine Est GFR ( Amer) Est GFR (Non-Af Amer) Random Glucose Calcium Total Bilirubin AST ALT Alkaline Phosphatase Troponin I NT-Pro-B Natriuret Pep 198 Total Protein Albumin Globulin Albumin/Globulin Ratio Vitamin B12 262 TSH 3rd Generation 0.48 Urine Color Urine Clarity Urine pH Ur Specific [place] Urine Protein Urine Glucose (UA) Urine Ketones Urine Blood Urine Nitrate Urine Bilirubin Urine Urobilinogen Ur Leukocyte Esterase Urine RBC (Auto) Urine Microscopic WBC Ur Squamous Epith Cells Urine Opiates Screen Urine Methadone Screen Ur Barbiturates Screen Ur Phencyclidine Scrn Ur Amphetamines Screen U Benzodiazepines Scrn U Oth Cocaine Metabols U Cannabinoids Screen
[2018-06-23] MEDS ORDERED: Pantoprazole 40 mg EC Tab PO SCH (10:30)
--- NOTE | 2018-06-23 10:40 | CP.PCM.HP ---
History of Present Illness - History of Present Illness History of Present Illness: 68 yo female admitted yesterday under Dr Hall but refused to see him. Patient has history of COPD, HTN, Depression and Gastritis and was admitted because of SOB and wheezing of 2 days duration and suicidal ideation. Patient was very sleepy when seen and barely able to respond to interview after taking 0.5mg of Ativan PO. She however was able to respond when asked about her breathing and denied feeling SOB while having O2 supplement at 2LPM via NC. Present on Admission - Present on Admission Any Indicators Present on Admission: No History of DVT/PE: No History of Uncontrolled Diabetes: No Urinary Catheter: No Decubitus Ulcer Present: No Review of Systems - Review of Systems Systems not reviewed;Unavailable: Other (very sleepy and unable to answer further inquiry) Past Patient History - Infectious Disease Hx of Infectious Diseases: None - Tetanus Immunizations Tetanus Immunization: Unknown - Past Medical History & Family History Past Medical History?: Yes - Past Social History Smoking Status: Heavy Smoker > 10 Cigarettes Daily - CARDIAC Hx Cardiac Disorders: Yes Hx Hypertension: Yes - PULMONARY Hx Respiratory Disorders: Yes Hx Asthma: Yes Hx Chronic Obstructive Pulmonary Disease (COPD): Yes - NEUROLOGICAL Hx Neurological Disorder: No - HEENT Hx HEENT Problems: No - RENAL Hx Chronic Kidney Disease: No - ENDOCRINE/METABOLIC Hx Endocrine Disorders: No - HEMATOLOGICAL/ONCOLOGICAL Hx Blood Disorders: No Hx AIDS: No Hx Human Immunodeficiency Virus (HIV): No - INTEGUMENTARY Hx Dermatological Problems: No - MUSCULOSKELETAL/RHEUMATOLOGICAL Hx Musculoskeletal Disorders: Yes Hx Arthritis: Yes Hx Falls: No Other/Comment: fibromyalgia - GASTROINTESTINAL Hx Gastrointestinal Disorders: Yes Hx Gastritis: Yes - GENITOURINARY/GYNECOLOGICAL Hx Genitourinary Disorders: Yes Hx Bladder Cancer: Yes Other/Comment: FREGUENT URINATION - PSYCHIATRIC Hx Psychophysiologic Disorder: Yes Hx Anxiety: Yes Hx Depression: Yes Hx Substance Use: No - SURGICAL HISTORY Hx Surgeries: Yes Hx Herniorrhaphy: Yes Hx Orthopedic Surgery: Yes (left knee replacement) Other/Comment: TURBT - ANESTHESIA Hx Anesthesia: Yes Hx Anesthesia Reactions: No Hx Malignant Hyperthermia: No Has any member of the family had a problem w/ anesthesia?: No Meds Allergies/Adverse Reactions: Allergies Allergy/AdvReac Type Severity Reaction Status Date / Time No Known Allergies Allergy Verified 06/22/18 17:22 Physical Exam - Constitutional Appears: No Acute Distress - Head Exam Head Exam: ATRAUMATIC - Eye Exam Eye Exam: absent: Scleral icterus - ENT Exam ENT Exam: Mucous Membranes Moist - Neck Exam Neck exam: Negative for: Meningismus - Respiratory Exam Respiratory Exam: Wheezes - Cardiovascular Exam Cardiovascular Exam: REGULAR RHYTHM, +S1, +S2 - GI/Abdominal Exam GI & Abdominal Exam: Soft. absent: Tenderness - Rectal Exam Rectal Exam: Deferred - Extremities Exam Extremities exam: Negative for: calf tenderness, pedal edema - Back Exam Back exam: NORMAL INSPECTION - Neurological Exam Neurological exam: Altered (sleepy because of medication (Ativan)) - Psychiatric Exam Psychiatric exam: Normal Affect - Skin Skin Exam: Dry, Intact Results - Vital Signs Recent Vital Signs: Last Vital Signs Temp 97.1 F L 06/23/18 08:26 Pulse 73 06/23/18 09:07 Resp 20 06/23/18 08:26 BP 158/78 H 06/23/18 09:07 Pulse Ox 96 06/23/18 08:26 - Labs Result Diagrams: 06/22/18 17:57 06/22/18 17:57 Labs: Laboratory Results - last 24 hr 06/22/18 06/22/18 06/22/18 17:57 17:57 17:57 WBC 13.7 H RBC 4.58 Hgb 13.7 Hct 39.5 MCV 86.2 D MCH 29.9 MCHC 34.6 RDW 14.5 Plt Count 259 MPV 6.7 L Neut % (Auto) 85.6 H Lymph % (Auto) 7.8 L Emm[place] % (Auto) 5.8 Eos % (Auto) 0.1 Baso % (Auto) 0.7 Neut # (Auto) 11.7 H Lymph # (Auto) 1.1 Emm[place] # (Auto) 0.8 Eos # (Auto) 0.0 Baso # (Auto) 0.1 Neutrophils % (Manual) 85 H Lymphocytes % (Manual) 11 L Monocytes % (Manual) 4 Platelet Estimate Normal RBC Morphology Normal D-Dimer, Quantitative < 200 pCO2 pO2 HCO3 ABG pH ABG Total CO2 ABG O2 Saturation ABG O2 Content ABG Base Excess ABG Hemoglobin ABG Carboxyhemoglobin POC ABG HHb (Measured) ABG Methemoglobin ABG O2 Capacity Vladimir Test A-a O2 Difference Hgb O2 Saturation Vent Mode FiO2 Sodium 134 Potassium 4.3 Chloride 95 L Carbon Dioxide 34 H Anion Gap 9 L BUN 27 H Creatinine 0.6 L Est GFR ( Amer) > 60 Est GFR (Non-Af Amer) > 60 Random Glucose 126 H Calcium 9.2 Total Bilirubin 0.4 AST 20 ALT 21 Alkaline Phosphatase 74 Troponin I < 0.0120 NT-Pro-B Natriuret Pep Total Protein 7.0 Albumin 3.9 Globulin 3.1 Albumin/Globulin Ratio 1.3 Vitamin B12 TSH 3rd Generation Urine Color Urine Clarity Urine pH Ur Specific [place] Urine Protein Urine Glucose (UA) Urine Ketones Urine Blood Urine Nitrate Urine Bilirubin Urine Urobilinogen Ur Leukocyte Esterase Urine RBC (Auto) Urine Microscopic WBC Ur Squamous Epith Cells Urine Opiates Screen Urine Methadone Screen Ur Barbiturates Screen Ur Phencyclidine Scrn Ur Amphetamines Screen U Benzodiazepines Scrn U Oth Cocaine Metabols U Cannabinoids Screen 06/22/18 06/22/18 06/22/18 18:14 18:14 19:35 WBC RBC Hgb Hct MCV MCH MCHC RDW Plt Count MPV Neut % (Auto) Lymph % (Auto) [place] % (Auto) Eos % (Auto) Baso % (Auto) Neut # (Auto) Lymph # (Auto) [place] # (Auto) Eos # (Auto) Baso # (Auto) Neutrophils % (Manual) Lymphocytes % (Manual) Monocytes % (Manual) Platelet Estimate RBC Morphology D-Dimer, Quantitative pCO2 63 H pO2 55 L HCO3 30.8 H ABG pH 7.36 ABG Total CO2 37.5 H ABG O2 Saturation 92.2 L ABG O2 Content 16.3 ABG Base Excess 7.9 H ABG Hemoglobin 13.6 ABG Carboxyhemoglobin 5.0 H POC ABG HHb (Measured) 7.2 H ABG Methemoglobin 2.4 ABG O2 Capacity 17.7 Vladimir Test Yes A-a O2 Difference 16.0 Hgb O2 Saturation 85.4 L Vent Mode Room air FiO2 21.0 Sodium Potassium Chloride Carbon Dioxide Anion Gap BUN Creatinine Est GFR ( Amer) Est GFR (Non-Af Amer) Random Glucose Calcium Total Bilirubin AST ALT Alkaline Phosphatase Troponin I NT-Pro-B Natriuret Pep Total Protein Albumin Globulin Albumin/Globulin Ratio Vitamin B12 TSH 3rd Generation Urine Color Yellow Urine Clarity Slighty-cloudy Urine pH 5.0 Ur Specific [place] 1.021 Urine Protein 30 Urine Glucose (UA) Neg Urine Ketones Negative Urine Blood Negative Urine Nitrate Negative Urine Bilirubin Negative Urine Urobilinogen 2.0 H Ur Leukocyte Esterase Neg Urine RBC (Auto) 2 Urine Microscopic WBC 2 Ur Squamous Epith Cells < 1 Urine Opiates Screen Negative Urine Methadone Screen Negative Ur Barbiturates Screen Negative Ur Phencyclidine Scrn Negative Ur Amphetamines Screen Negative U Benzodiazepines Scrn Negative U Oth Cocaine Metabols Negative U Cannabinoids Screen Negative 06/22/18 06/23/18 19:38 06:45 WBC RBC Hgb Hct MCV MCH MCHC RDW Plt Count MPV Neut % (Auto) Lymph % (Auto) Emm[place] % (Auto) Eos % (Auto) Baso % (Auto) Neut # (Auto) Lymph # (Auto) [place] # (Auto) Eos # (Auto) Baso # (Auto) Neutrophils % (Manual) Lymphocytes % (Manual) Monocytes % (Manual) Platelet Estimate RBC Morphology D-Dimer, Quantitative pCO2 pO2 HCO3 ABG pH ABG Total CO2 ABG O2 Saturation ABG O2 Content ABG Base Excess ABG Hemoglobin ABG Carboxyhemoglobin POC ABG HHb (Measured) ABG Methemoglobin ABG O2 Capacity Vladimir Test A-a O2 Difference Hgb O2 Saturation Vent Mode FiO2 Sodium Potassium Chloride Carbon Dioxide Anion Gap BUN Creatinine Est GFR ( Amer) Est GFR (Non-Af Amer) Random Glucose Calcium Total Bilirubin AST ALT Alkaline Phosphatase Troponin I NT-Pro-B Natriuret Pep 198 Total Protein Albumin Globulin Albumin/Globulin Ratio Vitamin B12 262 TSH 3rd Generation 0.48 Urine Color Urine Clarity Urine pH Ur Specific [place] Urine Protein Urine Glucose (UA) Urine Ketones Urine Blood Urine Nitrate Urine Bilirubin Urine Urobilinogen Ur Leukocyte Esterase Urine RBC (Auto) Urine Microscopic WBC Ur Squamous Epith Cells Urine Opiates Screen Urine Methadone Screen Ur Barbiturates Screen Ur Phencyclidine Scrn Ur Amphetamines Screen U Benzodiazepines Scrn U Oth Cocaine Metabols U Cannabinoids Screen Assessment & Plan - Assessment and Plan (Free Text) Assessment: 68 yo female admitted yesterday under Dr Hall but refused to see him. Patient has history of COPD, HTN, Depression and Gastritis and was admitted because of SOB and wheezing of 2 days duration and suicidal ideation. Patient was very sleepy when seen and barely able to respond to interview after taking 0.5mg of Ativan PO. She however was able to respond when asked about her breathing and denied feeling SOB while having O2 supplement at 2LPM via NC. 1. COPD exacerbation still wheezing but admitted feeling better continue SoluMedrol 40mg IV q 6hrs Duoneb via nebulizer q 6hrs Albuterol via nebulizer q 4hrs prn for SOB/wheeing 2. Suicidal Ideation continue one to one observation psyche consult with Dr Beverly wise 3. HTN BP stable continue Losartan and Toprol XL 4. DVT prophylaxis Lovenox 40mg SC daily
[2018-06-23 11:45] LABS: BASO % 0.2 % (0.0-2.0); HEMOGLOBIN 12.7 g/dL (12.0-16.0); LYMPH # 0.5 K/uL (1.0-4.3); MEAN CORPUSCULAR HEMOGLOBIN 29.6 pg (27.0-31.0); MEAN PLATELET VOLUME 6.8 fl (7.2-11.7); MONO # 0.6 K/uL (0.0-0.8); MONO % 3.3 % (0.0-10.0); NEUT # 15.8 K/uL (1.8-7.0); NEUT % 93.5 % (50.0-75.0); PLATELET COUNT 236 K/uL (130-400); RED CELL DISTRIBUTION WIDTH 14.4 % (11.5-14.5); WHITE BLOOD COUNT 16.9 K/uL (4.8-10.8)
[2018-06-23 11:54] LABS: BLOOD UREA NITROGEN 22 mg/dl (7-17); CALCIUM 8.7 mg/dL (8.4-10.2); GFR NON-AFRICAN AMERICAN > 60
[2018-06-23 12:17] LABS: LYMPHOCYTE 7 % (20-50); MONOCYTE 2 % (0-10); NEUTROPHIL 91 % (42-75); PLATELET ESTIMATE NORMAL (NORMAL); TOTAL CELLS COUNTED 100
[2018-06-23] MEDS: Enoxaparin 40 mg Syringe SC SCH (12:52)
[2018-06-23] MEDS ORDERED: Albuterol HFA 90 mcg/actuation (8 g) IH PRN (17:00)
[2018-06-23] MEDS: oxyCODONE 10 mg Immediate Release Tab PO PRN (17:35)
--- NOTE | 2018-06-23 18:02 | HP ---
CHIEF COMPLAINT: Shortness of breath. HISTORY OF PRESENT ILLNESS: This is a 68-year-old female, known case of bronchial asthma, COPD, depression, hypertension, bladder cancer, fibromyalgia, gastritis, anxiety, arthritis, and chronic herniated disk problem, who was feeling very bad and was having nervous breakdown and was having suicidal ideation, so the patient was brought to the emergency room and the patient was also started having shortness of breath and was found to have exacerbation of COPD and was admitted for further management. REVIEW OF SYSTEMS: Positive for shortness of breath and suicidal ideation. Review of system otherwise is negative for headache, dizziness, syncope, loss of consciousness, chest pain, nausea, vomiting, diarrhea, constipation, and any new joint or extremity pain. Review of system of all other organ system is unremarkable. PAST MEDICAL HISTORY: Significant for hypertension, COPD, bronchial asthma, depression, fibromyalgia, gastritis, asthma, chronic back pain, herniated disk and anxiety. PAST SURGICAL HISTORY: Remarkable for hysterectomy, cystoscopy and endoscopy. PERSONAL HISTORY: The patient is currently nonsmoker, nondrinker. No substance abuse. MEDICATIONS: The patient is on multiple medications including fentanyl, gabapentin, oxybutynin, , vitamin D, metoprolol, omega-3, omeprazole, sertraline, clonazepam, oxycodone, levofloxacin, and prednisone. ALLERGIES: THE PATIENT IS NOT ALLERGIC TO ANY MEDICATION. FAMILY HISTORY: Noncontributory. PHYSICAL EXAMINATION: GENERAL: Well built, well nourished, anxious looking 68-year-old female, in no acute distress. VITAL SIGNS: Temperature 97.8, pulse 68, respirations 18, blood pressure 138/82. HEENT: Pupils reacting to light. No JVD. No thyromegaly. No lymphadenopathy. No nystagmus. Normocephalic. Atraumatic skull. HEART: S1 and S2. Normal and regular. No significant murmur, gallop or rub is heard. LUNGS: Shows good bilateral air exchange. The patient has prolonged expiration, occasional rhonchi and poor air exchange consistent with COPD exacerbation. No rales heard. ABDOMEN: Soft, nontender. No organomegaly. No fluid. Bowel sound are plus and normal. No sign of acute abdomen. No guarding. No rigidity. No rebound. EXTREMITIES: No edema. No calf swelling. No tenderness. No acute ischemia. SELECTOR PACKER: Exam is essentially unchanged and there is no sign of any acute gross focal motor or sensory neurological deficits. DIAGNOSTIC DATA: Available diagnostic data reviewed. Telemetry monitoring does not reveal significant arrhythmias. Chest x-ray is clear. EKG does not reveal any acute ST-T changes. Urine toxicology is negative. Urinalysis is negative. Sodium 134, potassium 4.3, chloride 95, bicarb 34, BUN 27, creatinine 0.6. SMA-12 is unremarkable. BNP level is 198. Lactic acid level is not done. ABG shows pH of , pCO2 of 63, saturation of 92. D-dimer is 92, WBC is 13.7, hemoglobin 13.7, hematocrit 39.5, platelet 259. ADMITTING IMPRESSION: Acute exacerbation of chronic obstructive pulmonary disease, severe depression with suicidal ideation, history of hypertension, back pain, anxiety, asthma, gastritis, and bladder cancer. PLAN: As ordered. Case and plan discussed with the patient. Suleiman Hall MD
[2018-06-23] MEDS: Fluticasone-Salmeterol 250-50mcg Diskus IH SCH (21:00)
[2018-06-24] MEDS: Albuterol-Ipratrop 3 mg / 0.5 (3 ml) UD INH SCH ×4 (01:15→19:05)
[2018-06-24] MEDS: MethylPREDNISolone 40 mg Vial IV SCH ×3 (04:15→16:41)
[2018-06-24 06:24] LABS: HEMOGLOBIN 12.3 g/dL (12.0-16.0); MEAN CORPUSCULAR HEMOGLOBIN 29.8 pg (27.0-31.0); MEAN CORPUSCULAR HGB CONC 34.7 g/dL (33.0-37.0); RBC 4.11 Mil/uL (3.80-5.20); RED CELL DISTRIBUTION WIDTH 14.3 % (11.5-14.5); WHITE BLOOD COUNT 15.2 K/uL (4.8-10.8)
[2018-06-24 06:31] LABS: ALB/GLOB RATIO 1.1 (1.0-2.1); ALT/SGPT 14 U/L (9-52); AST/SGOT 16 U/L (14-36); BLOOD UREA NITROGEN 25 mg/dl (7-17); CALCIUM 8.7 mg/dL (8.4-10.2); GFR NON-AFRICAN AMERICAN > 60; HDL CHOLESTEROL 74 MG/DL (30-70)
[2018-06-24 06:40] LABS: LDL CHOLESTEROL 74 mg/dL (0-129)
[2018-06-24] MEDS: Fluticasone-Salmeterol 250-50mcg Diskus IH SCH ×2 (09:08→21:58)
[2018-06-24] MEDS: Enoxaparin 40 mg Syringe SC SCH (09:09)
[2018-06-24] MEDS: Metoprolol Succinate 50 mg XL Tab PO SCH ×2 (09:09→16:37)
[2018-06-24] MEDS: Cholecalciferol 1,000 INTLU TAB PO SCH (09:09)
--- NOTE | 2018-06-24 12:34 | CP.PCM.DIS ---
Provider - Provider Date of Admission: 06/22/18 19:16 Attending physician: Johnathan Tapia MD Time Spent in preparation of Discharge (in minutes): 25 Diagnosis - Discharge Diagnosis (1) COPD (chronic obstructive pulmonary disease) Status: Acute Comment: felt better. continue COPD regimen (2) Suicidal ideation Status: Acute Comment: for admission to [facility] Course - Lab Results Lab Results: Most Recent Lab Values WBC 15.2 K/uL (4.8-10.8) H 06/24/18 05:50 RBC 4.11 Mil/uL (3.80-5.20) 06/24/18 05:50 Hgb 12.3 g/dL (12.0-16.0) 06/24/18 05:50 Hct 35.4 % (34.0-47.0) 06/24/18 05:50 MCV 86.0 fl (81.0-99.0) 06/24/18 05:50 MCH 29.8 pg (27.0-31.0) 06/24/18 05:50 MCHC 34.7 g/dL (33.0-37.0) 06/24/18 05:50 RDW 14.3 % (11.5-14.5) 06/24/18 05:50 Plt Count 225 K/uL (130-400) 06/24/18 05:50 MPV 6.8 fl (7.2-11.7) L 06/23/18 11:30 Neut % (Auto) 93.5 % (50.0-75.0) H 06/23/18 11:30 Lymph % (Auto) 3.0 % (20.0-40.0) L 06/23/18 11:30 [place] % (Auto) 3.3 % (0.0-10.0) 06/23/18 11:30 Eos % (Auto) 0.0 % (0.0-4.0) 06/23/18 11:30 Baso % (Auto) 0.2 % (0.0-2.0) 06/23/18 11:30 Neut # (Auto) 15.8 K/uL (1.8-7.0) H 06/23/18 11:30 Lymph # (Auto) 0.5 K/uL (1.0-4.3) L 06/23/18 11:30 [place] # (Auto) 0.6 K/uL (0.0-0.8) 06/23/18 11:30 Eos # (Auto) 0.0 K/uL (0.0-0.7) 06/23/18 11:30 Baso # (Auto) 0.0 K/uL (0.0-0.2) 06/23/18 11:30 Neutrophils % (Manual) 91 % (42-75) H 06/23/18 11:30 Lymphocytes % (Manual) 7 % (20-50) L 06/23/18 11:30 Monocytes % (Manual) 2 % (0-10) 06/23/18 11:30 Platelet Estimate Normal (NORMAL) 06/23/18 11:30 RBC Morphology Normal (NORMAL) 06/23/18 11:30 D-Dimer, Quantitative < 200 ng/mlDDU (0-230) 06/22/18 17:57 pCO2 63 mm/Hg (35-45) H 06/22/18 19:35 pO2 55 mm/Hg (80-100) L 06/22/18 19:35 HCO3 30.8 mmol/L (21-28) H 06/22/18 19:35 ABG pH 7.36 (7.35-7.45) 06/22/18 19:35 ABG Total CO2 37.5 mmol/L (22-28) H 06/22/18 19:35 ABG O2 Saturation 92.2 % (95-98) L 06/22/18 19:35 ABG O2 Content 16.3 ML/dL (15-23) 06/22/18 19:35 ABG Base Excess 7.9 mmol/L (-2.0-3.0) H 06/22/18 19:35 ABG Hemoglobin 13.6 g/dL (11.7-17.4) 06/22/18 19:35 ABG Carboxyhemoglobin 5.0 % (0.5-1.5) H 06/22/18 19:35 POC ABG HHb (Measured) 7.2 % (0.0-5.0) H 06/22/18 19:35 ABG Methemoglobin 2.4 % (0.0-3.0) 06/22/18 19:35 ABG O2 Capacity 17.7 mL/dL (16-24) 06/22/18 19:35 Vladimir Test Yes 06/22/18 19:35 A-a O2 Difference 16.0 mm/Hg 06/22/18 19:35 Hgb O2 Saturation 85.4 % (95.0-98.0) L 06/22/18 19:35 Vent Mode Room air 06/22/18 19:35 FiO2 21.0 % 06/22/18 19:35 Sodium 132 mmol/l (132-148) 06/24/18 05:50 Potassium 4.9 MMOL/L (3.6-5.0) 06/24/18 05:50 Chloride 94 mmol/L (98-107) L 06/24/18 05:50 Carbon Dioxide 37 mmol/L (22-30) H 06/24/18 05:50 Anion Gap 6 (10-20) L 06/24/18 05:50 BUN 25 mg/dl (7-17) H 06/24/18 05:50 Creatinine 0.6 mg/dl (0.7-1.2) L 06/24/18 05:50 Est GFR ( Amer) > 60 06/24/18 05:50 Est GFR (Non-Af Amer) > 60 06/24/18 05:50 Random Glucose 108 mg/dL (65-105) H 06/24/18 05:50 Calcium 8.7 mg/dL (8.4-10.2) 06/24/18 05:50 Total Bilirubin 0.3 mg/dl (0.2-1.3) 06/24/18 05:50 AST 16 U/L (14-36) 06/24/18 05:50 ALT 14 U/L (9-52) 06/24/18 05:50 Alkaline Phosphatase 37 U/L (38-126) L D 06/24/18 05:50 Troponin I < 0.0120 ng/mL (0.00-0.120) 06/22/18 17:57 NT-Pro-B Natriuret Pep 198 pg/ml (0-900) 06/22/18 19:38 Total Protein 5.8 G/DL (6.3-8.2) L 06/24/18 05:50 Albumin 3.0 g/dL (3.5-5.0) L D 06/24/18 05:50 Globulin 2.8 gm/dL (2.2-3.9) 06/24/18 05:50 Albumin/Globulin Ratio 1.1 (1.0-2.1) 06/24/18 05:50 Triglycerides 62 mg/DL (0-149) 06/24/18 05:50 Cholesterol 163 mg/dL (0-199) 06/24/18 05:50 LDL Cholesterol Direct 74 mg/dL (0-129) 06/24/18 05:50 HDL Cholesterol 74 MG/DL (30-70) H 06/24/18 05:50 Vitamin B12 262 pg/mL (239-931) 06/23/18 06:45 TSH 3rd Generation 0.48 mIU/ML (0.46-4.68) 06/23/18 06:45 Urine Color Yellow (YELLOW) 06/22/18 18:14 Urine Clarity Slighty-cloudy (Clear) 06/22/18 18:14 Urine pH 5.0 (5.0-8.0) 06/22/18 18:14 Ur Specific [place] 1.021 (1.003-1.030) 06/22/18 18:14 Urine Protein 30 mg/dL (NEGATIVE) 06/22/18 18:14 Urine Glucose (UA) Neg mg/dL (Normal) 06/22/18 18:14 Urine Ketones Negative mg/dL (NEGATIVE) 06/22/18 18:14 Urine Blood Negative (NEGATIVE) 06/22/18 18:14 Urine Nitrate Negative (NEGATIVE) 06/22/18 18:14 Urine Bilirubin Negative (NEGATIVE) 06/22/18 18:14 Urine Urobilinogen 2.0 mg/dL (0.2-1.0) H 06/22/18 18:14 Ur Leukocyte Esterase Neg [place]/uL (Negative) 06/22/18 18:14 Urine RBC (Auto) 2 /hpf (0-3) 06/22/18 18:14 Urine Microscopic WBC 2 /hpf (0-5) 06/22/18 18:14 Ur Squamous Epith Cells < 1 /hpf (0-5) 06/22/18 18:14 Urine Opiates Screen Negative (NEGATIVE) 06/22/18 18:14 Urine Methadone Screen Negative (NEGATIVE) 06/22/18 18:14 Ur Barbiturates Screen Negative (NEGATIVE) 06/22/18 18:14 Ur Phencyclidine Scrn Negative (NEGATIVE) 06/22/18 18:14 Ur Amphetamines Screen Negative (NEGATIVE) 06/22/18 18:14 U Benzodiazepines Scrn Negative (NEGATIVE) 06/22/18 18:14 U Oth Cocaine Metabols Negative (NEGATIVE) 06/22/18 18:14 U Cannabinoids Screen Negative (NEGATIVE) 06/22/18 18:14 - Hospital Course Hospital Course: 68 yo female with history of COPD, HTN, Depression and Gastritis admitted because of SOB and wheezing of 2 days duration and suicidal ideation. Patient was very sleepy when seen and barely able to respond to interview after taking 0.5mg of Ativan PO. She however was able to respond when asked about her breathing and denied feeling SOB while having O2 supplement at 2LPM via NC. Patient after receiving bronchodilators and steroid had relief and felt better. She is for transfer to [facility]. Discharge Exam - Head Exam Head Exam: ATRAUMATIC - Eye Exam Eye Exam: Normal appearance - ENT Exam ENT Exam: Mucous Membranes Moist - Respiratory Exam Respiratory Exam: absent: Rhonchi, Wheezes, Respiratory Distress - Cardiovascular Exam Cardiovascular Exam: REGULAR RHYTHM, +S1, +S2 - GI/Abdominal Exam GI & Abdominal Exam: Soft. absent: Tenderness - Rectal Exam Rectal Exam: Deferred - Neurological Exam Neurological exam: Alert, Oriented x3 - Psychiatric Exam Psychiatric exam: Normal Affect - Skin Skin Exam: Dry, Intact Discharge Plan - Follow Up Plan Condition: FAIR Disposition: HOME/ ROUTINE
[2018-06-24] MEDS: oxyCODONE 10 mg Immediate Release Tab PO PRN (13:19)
[2018-06-24 15:58] VITALS: BP 120/69; PULSE 77; RESP 18; TEMP 98.1; O2SAT 95
== END 2018-06-24 22:24 ==
LOC: H.ER 17:19 → INTOOBSV 19:16 → H.ERHOLD 19:16 → H.TEL 21:50 → H.MEDSURG1 06-23 13:53
DX: J44.1 Chronic obstructive pulmonary disease with (acute) exacerbation (principal); F32.9 Major depressive disorder, single episode, unspecified; F41.9 Anxiety disorder, unspecified; M79.7 Fibromyalgia; G89.29 Other chronic pain; R45.851 Suicidal ideations; I10 Essential (primary) hypertension; K29.70 Gastritis, unspecified, without bleeding; M19.90 Unspecified osteoarthritis, unspecified site; F17.210 Nicotine dependence, cigarettes, uncomplicated; Z59.0 Homelessness; Z96.652 Presence of left artificial knee joint; Z85.51 Personal history of malignant neoplasm of bladder; Z90.710 Acquired absence of both cervix and uterus
CPT/HCPCS: 36415; 71045; 80048; 80053; 80061; 81003; 81025; 82607; 82803; 83880; 84443; 84484; 85025; 85027; 85378; 93005; 94640; 99284; G0378; G0480; J1650; J2920; J8540

== ENCOUNTER 2018-06-24 22:39 | Inpatient (IN) | payer MEDICARE ==
[2018-06-24 23:19] VITALS: BMI 25.6
[2018-06-24] MEDS ORDERED: Magnesium Hydroxide Susp 30 ml UD PO PRN (23:35)
[2018-06-24] MEDS ORDERED: Alum-Mag Hydrox-Simethicone Susp (30 mL) PO PRN (23:35)
[2018-06-24] MEDS ORDERED: Bismuth Subsalicylate 262 mg/15 ml Sus (240 ml) PO PRN (23:35)
[2018-06-24 23:45] VITALS: RESP 20
--- NOTE | 2018-06-25 00:12 | PCM.BM ---
Treatment Plan Problems - Problems identified on initial assessmt Hopelessness/Helplessness Date Initiated: 06/25/18 Time Initiated: 00:10 Assessment reference: NA Status: Monitor (1:1 observation for suicide precaution) Feelings of Worthlessness Date Initiated: 06/25/18 Time Initiated: 00:11 Assessment reference: NA Status: Active Medication nonadherence Date Initiated: 06/25/18 Assessment reference: NA Status: Active Treatment assets and liabiliti Patient Assests: negotiates basic needs Patient Liabilities: live alone, poor support system, medical problems - Milieu Protocol Maintain good personal hygiene: daily Encourage regular showers, daily Remind patient to perform daily oral care, daily Assist patient to perform ADL's Conduct patient checks and document Observation sheet: 1:1 Maintain personal safety: every shift Educate patient to report safety concerns to staff, every shift Monitor environment for contraband/sharps Medication safety: Monitor for expected outcome, potential side effects: every shift, Assess barriers to learning: every shift, Assess readiness for medication education: every shift
[2018-06-25] MEDS ORDERED: Albuterol HFA 90 mcg/actuation (8 g) IH PRN (00:15)
[2018-06-25] MEDS ORDERED: Metoprolol Succinate 50 mg XL Tab PO SCH (09:00)
[2018-06-25] MEDS ORDERED: Cholecalciferol 1,000 INTLU TAB PO SCH (09:00)
[2018-06-25] MEDS ORDERED: Fluticasone-Salmeterol 250-50mcg Diskus IH SCH (09:00)
[2018-06-25] MEDS ORDERED: Pantoprazole 40 mg EC Tab PO SCH (09:00)
--- NOTE | 2018-06-25 09:49 | PCM.PSYCH ---
Initial Psychiatric Evaluation - Initial Psychiatric Evaluation Patient's Reaction to Hospitalization: Patient was admitted to the psychiatry unit overnight, had chest pain and then was transferred to medicine for further treatment and evaluation before patient was able to have clinical evaluation by the psychiatrist. Past Psychiatric History - Past Psychiatric History Pertinent Medical Hx (Current Medical&Sleep Prob, Allergies): Allergies Allergy/AdvReac Type Severity Reaction Status Date / Time No Known Allergies Allergy Verified 06/22/18 17:22 Albuterol HFA [Ventolin HFA 90 mcg/actuation (8 g)] 2 puff IH [id number] PRN 09/26/17 Gabapentin 300 mg PO Q8 09/26/17 Oxybutynin Chloride [Oxybutynin Chloride ER] 15 mg PO Q12H 09/26/17 Valsartan [Diovan] 80 mg PO DAILY 09/26/17 Baclofen [Lioresal] 10 mg PO Q8H 01/21/18 Cholecalciferol [Vitamin D 1000 IU] 1,000 unit PO DAILY 01/21/18 LORazepam [Ativan] 0.5 mg PO DAILY 01/21/18 Metoprolol Succinate XL [Toprol XL] 50 mg PO BID #10 tab 01/21/18 Naproxen 375 mg PO Q12 PRN 01/21/18 [place]-3 Fatty Acids/Fish Oil [Fish Oil 1,000 mg Capsule] 1 cap PO DAILY 01/21/18 Sertraline [Zoloft] 50 mg PO DAILY 01/21/18 clonazePAM [Klonopin] 0.5 mg PO Q12 PRN 01/21/18 oxyCODONE [oxyCODONE Immediate Release Tab] 10 mg PO Q6 PRN 01/21/18 Fluticasone/Salmeterol 250/50 [Advair Diskus 250/50] 1 puff IH Q12 puff 06/24/18 Nicotine 21 mg/24 hr [Nicoderm Cq] 21 mg TD DAILY 1 Days patch 06/24/18 Pantoprazole [Protonix EC Tab] 40 mg PO DAILY ect 06/24/18
--- NOTE | 2018-06-25 09:49 | PCM.PYCHDC ---
Discharge Summary - Discharge Note Reason for Hospitalization: Patient was admitted to the psychiatry unit overnight, had chest pain and then was transferred to medicine for further treatment and evaluation before patient was able to have clinical evaluation by the psychiatrist. Consultations:: List each consultation separately and include: 1. Reason for request. 2. Findings. 3. Follow-up Summary of Hospital Course include:: 1. Description of specific treatment plan utilized for patients during their course of treatmen. 2. Summarize the time- course for resolution of acute symptoms and/or regressed behaviors. 3. Describe issues identified and worked on during hospitalization. 4. Describe medication utilized. 5. Describe medical problems identified and treated. 6. Reassessment of suicide risk - Final Diagnosis (DSM 5) Condition upon Discharge: GOOD Disposition: Still A Patient
--- NOTE | 2018-06-25 21:22 | PCM.RRT ---
PRODUCTION COOK Nurse Assessment - Situation PRODUCTION COOK Responder Arrival Time: 00:20 Location: [facility] Room Number: 306 PRODUCTION COOK Reason for Call: Chest Pain PRODUCTION COOK Called By: RN - IV IV Inserted during PRODUCTION COOK?: No - Respiratory Oxygen Delivery Method: Nasal Cannula Received Nebulizer Treatments: No Was the Patient Ventilated with Bag/Mask 100% O2?: No Secretions Suctioned?: No Was the Patient Intubated?: No Was the Patient Placed on a Ventilator?: No - Medication Medications Administered During PRODUCTION COOK: nirtogylcerin sublingual given x 1 dose - Diagnostic Test Ordered EKG: No Chest X-Ray: No CT Scan: No CPR started during PRODUCTION COOK?: No - Vital Signs Vital Signs: Rapid Response Vital Sign Blood Pressure 189/87 Pulse Rate 68 Respiratory Rate 16 Oxygen Saturation 99 - Time PRODUCTION COOK Ended Time PRODUCTION COOK Ended: 00:42 - Vital Signs at end of PRODUCTION COOK Vital Signs at end of PRODUCTION COOK: Rapid Response End Vital Sign Blood Pressure 154/60 Pulse Rate 71 Respiratory Rate 21 O2 Sat by Pulse Oximetry 99 - Recommendations PRODUCTION COOK Level of Care Recommendations: Discharge to Emergency Room I.Reason for PRODUCTION COOK - A) Acute Change in Patient: (Select all that apply): Staff member or family is worried about patient, Chest Pain - Neurological Status (Select all that apply): Alert, Responsive, Oriented, Verbal, Follows Commands Plan - Assessment of Findings&Treatment Plan 68 y/o woman / pmh of COPD, HTN, and psych disorder admitted for COPD exacerbation and than transferred to psych for depression/SI. PRODUCTION COOK called by nurse. PRODUCTION COOK team arrived on site with Dr. Banuelos. Patient complained of sudden substernal chest pain and pressure w/associated dyspnea. Pain is not reproducible w/ palpation and non-radiating. Patient reported chest pain 10/10 prior to sublingual nitro and became 5-6/10 after treatment. Patient transferred to ER for further evaluation. - Transfer patient to ER for further work up - Will monitor patient for any changes.
== END 2018-06-25 01:03 | disposition short-term general hospital (02) | DRG 881 ==
LOC: H.STEP 23:19
PROVIDERS: ADMIT Psychiatry & Neurology Psychiatry; ATTEND Psychiatry & Neurology Psychiatry
PROC: GZ3ZZZZ Medication Management (ICD-10-PCS; principal; 2018-06-24)
PROC: GZHZZZZ Group Psychotherapy (ICD-10-PCS; 2018-06-24)
PROC: GZ56ZZZ Individual Psychotherapy, Supportive (ICD-10-PCS; 2018-06-24)
DX: F32.9 Major depressive disorder, single episode, unspecified (principal); R45.851 Suicidal ideations; J44.9 Chronic obstructive pulmonary disease, unspecified; I10 Essential (primary) hypertension; Z59.0 Homelessness; K29.70 Gastritis, unspecified, without bleeding

== ENCOUNTER 2018-06-25 01:05 | Inpatient (IN) | payer MEDICARE ==
--- NOTE | 2018-06-25 01:19 | ED PDOC ---
HPI: Chest Pain Time Seen by Provider: 06/25/18 01:11 Chief Complaint (Nursing): Chest Pain History Per: Patient History/Exam Limitations: no limitations Onset/Duration Of Symptoms: Hrs Additional Complaint(s): Hx of HTN, COPD, Psych Disorder presenting with chest pain, occurred 30 minutes prior to arrival in Psych, states she was resting, pain was bilateral and associated with shortness of breath, states that after receiving nitro the pain level dropped form 10 to 5. States this has never happened to her before and she has family history of cardiac disease with [place] at early ages. Active smoker - nearly 1PPD. Pain is nonradiating. Past Medical History Reviewed: Historical Data, Nursing Documentation, Vital Signs Vital Signs: Last Vital Signs Temp 97.5 F L 06/25/18 01:44 Pulse 59 L 06/25/18 01:44 Resp 16 06/25/18 01:44 BP 141/75 06/25/18 01:44 Pulse Ox 100 06/25/18 01:44 - Medical History PMH: Anxiety, Arthritis, Asthma, Back Problems (herniated disc), Colonic Polyps , COPD, Depression, Emphysema, Fibromyalgia, Gastritis, HTN, Malignancy ( bladder CA), Peripheral Edema, Pneumonia (CHILDHOOD) Denies: HIV, Chronic Kidney Disease - Surgical History Surgical History: Endoscopy - Family History Family History: States: Unknown Family Hx - Immunization History Hx Tetanus Toxoid Vaccination: No Hx Influenza Vaccination: Yes (06/2015) Hx Pneumococcal Vaccination: No - Home Medications Home Medications: Ambulatory Orders Medication Instructions Recorded Albuterol HFA [Ventolin HFA 90 2 puff IH [id number] PRN 09/26/17 mcg/actuation (8 g)] Gabapentin 300 mg PO Q8 09/26/17 Oxybutynin Chloride [Oxybutynin 15 mg PO Q12H 09/26/17 Chloride ER] Valsartan [Diovan] 80 mg PO DAILY 09/26/17 Baclofen [Lioresal] 10 mg PO Q8H 01/21/18 Cholecalciferol [Vitamin D 1000 IU] 1,000 unit PO DAILY 01/21/18 LORazepam [Ativan] 0.5 mg PO DAILY 01/21/18 Metoprolol Succinate XL [Toprol XL] 50 mg PO BID #10 tab 01/21/18 Naproxen 375 mg PO Q12 PRN 01/21/18 [place]-3 Fatty Acids/Fish Oil [Fish 1 cap PO DAILY 01/21/18 Oil 1,000 mg Capsule] Sertraline [Zoloft] 50 mg PO DAILY 01/21/18 clonazePAM [Klonopin] 0.5 mg PO Q12 PRN 01/21/18 oxyCODONE [oxyCODONE Immediate 10 mg PO Q6 PRN 01/21/18 Release Tab] Fluticasone/Salmeterol 250/50 1 puff IH Q12 puff 06/24/18 [Advair Diskus 250/50] Nicotine 21 mg/24 hr [Nicoderm Cq] 21 mg TD DAILY 1 Days patch 06/24/18 Pantoprazole [Protonix EC Tab] 40 mg PO DAILY ect 06/24/18 - Allergies Allergies/Adverse Reactions: Allergies Allergy/AdvReac Type Severity Reaction Status Date / Time No Known Allergies Allergy Verified 06/22/18 17:22 CHEN Risk Score for UA/NSTEMI - CHEN Risk Score Age > 64: YES 3 or more CAD Risk Factors: NO Known CAD (Stenosis greater than 50%): NO Aspirin use in past 7 days: NO Severe Angina: NO EKG ST changes greater than 0.5mm: NO Positive Cardiac Marker: NO CHEN Score: 1 Risk %: 5% Wells Criteria for PE - Wells Criteria for Pulmonary Embolism Clinical Signs and Symptoms of DVT: No P.E is #1 Diagnosis, or Equally Likely: No Heart Rate >100: No Immobilization at least 3 days;Surgery previous 4 weeks: No Previous, objectively diagnosed PE or DVT: No Hemoptysis: No Malignancy w/treatment within 6 months, or palliative: No Total Score: 0 Review of Systems ROS Statement: Except As Marked, All Systems Reviewed And Found Negative Cardiovascular: Positive for: Chest Pain Physical Exam - Reviewed Nursing Documentation Reviewed: Yes Vital Signs Reviewed: Yes - Physical Exam Appears: Positive for: Well, Non-toxic, No Acute Distress Head Exam: Positive for: ATRAUMATIC, NORMAL INSPECTION, NORMOCEPHALIC Skin: Positive for: Normal Color, Warm, DRY Eye Exam: Positive for: EOMI, Normal appearance, PERRL ENT: Positive for: Normal ENT Inspection Neck: Positive for: Normal, Painless ROM Cardiovascular/Chest: Positive for: Regular Rate, Rhythm, Chest Non Tender Respiratory: Positive for: CNT, Normal Breath Sounds Gastrointestinal/Abdominal: Positive for: Normal Exam, Soft Back: Positive for: Normal Inspection Extremity: Positive for: Normal ROM. 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 Negative for: Motor/Sensory Deficits - Laboratory Results Result Diagrams: 06/25/18 01:25 06/25/18 01:25 - ECG ECG: Positive for: Interpreted By Me, Viewed By Me ECG Rhythm: Positive for: Normal QRS, Normal ST Segment, Sinus Rhythm O2 Sat by Pulse Oximetry: 99 Medical Decision Making Medical Decision MakinAM Patient presenting with chest pain and shorntess of breath --Vitals stable, BP trending towards normal --EKG nonischemic --Given age and risk factors, will r/o ACS with cardiac enzymes --Will place in OBS for serial troponins and continuous cardiac monitoring --Dr. Banuelos aware 2AM --Patient once again demonstrates leukocytosis, was elevated recently Disposition - Clinical Impression Clinical Impression: Chest pain - Patient ED Disposition Is Patient to be Admitted: Yes - Disposition Disposition Time: 01:20 Condition: FAIR
--- NOTE | 2018-06-25 01:32 | CP.PCM.HP ---
Addendum entered and electronically signed by Soheila Banuelos MD 06/25/18 06:48: I saw and examined this patient and discussed the plan as detailed below with Dr. Hardwick. Briefly, this is a 68 y/o patient who was admitted for COPD exac to med/surg several days ago and then transferred to Psych for ?depression/SI. This AM an ELEMENTARY EDUCATION TUTOR was called because patient c/o chest pain. At the time BP was noted to be markedly elevated. Patient was given a SLNG and transferred to ED for further w/u. Will be admitted for ACS r/o. Original Note: History of Present Illness - History of Present Illness History of Present Illness: CC: Chest pain HPI: 68 y/o woman / pmh of COPD, HTN, and psych disorder sent to ED after ELEMENTARY EDUCATION TUTOR called from psych unit for chest pain. Patient complained of sudden left sided chest pain w/ associated dyspnea. Pain is not reproducible w/ palpation and non-radiating. Patient reported chest pain 10/10 prior to sublingual nitro and became 5-6/10 after treatment. Patient denies previous episodes. Patient reports multiple family members w/ [place] in the past and at early ages. Patient is a current smoker and smokes about 1 pack per day. ED course: vitals: 58 beats/min, 154/64 mm hg, resp 16, O2 99% NC CBC: pending coags: pending CMP: pending troponin: pending EKG: NSR, no acute ST elevation/depression CXR: pending ASA 162 mg PO stat Present on Admission - Present on Admission Any Indicators Present on Admission: No History of DVT/PE: No History of Uncontrolled Diabetes: No Urinary Catheter: No Decubitus Ulcer Present: No Review of Systems - Review of Systems All systems: reviewed and no additional remarkable complaints except - Constitutional Constitutional: absent: Chills, Fever - EENT Eyes: absent: Change in Vision - Cardiovascular Cardiovascular: As Per HPI, Chest Pain - Respiratory Respiratory: As Per HPI, Dyspnea. absent: Cough - Gastrointestinal Gastrointestinal: absent: Abdominal Pain, Diarrhea, Nausea, Vomiting - Genitourinary Genitourinary: absent: Dysuria - Integumentary Integumentary: absent: Rash - Neurological Neurological: absent: Dizziness, Headaches Past Patient History - Infectious Disease Hx of Infectious Diseases: None - Tetanus Immunizations Tetanus Immunization: Unknown - Past Medical History & Family History Past Medical History?: Yes - Past Social History Smoking Status: Heavy Smoker > 10 Cigarettes Daily - CARDIAC Hx Hypertension: Yes Hx Peripheral Edema: Yes - PULMONARY Hx Asthma: Yes Hx Chronic Obstructive Pulmonary Disease (COPD): Yes Hx Emphysema: Yes Hx Pneumonia: Yes (CHILDHOOD) - NEUROLOGICAL Hx Neurological Disorder: No - HEENT Hx HEENT Problems: No - RENAL Hx Chronic Kidney Disease: No - ENDOCRINE/METABOLIC Hx Endocrine Disorders: No - HEMATOLOGICAL/ONCOLOGICAL Hx Human Immunodeficiency Virus (HIV): No - INTEGUMENTARY Hx Dermatological Problems: No - MUSCULOSKELETAL/RHEUMATOLOGICAL Hx Arthritis: Yes - GASTROINTESTINAL Hx Gastritis: Yes - GENITOURINARY/GYNECOLOGICAL Hx Genitourinary Disorders: Yes Hx Bladder Cancer: Yes Other/Comment: FREGUENT URINATION - PSYCHIATRIC Hx Anxiety: Yes Hx Depression: Yes - SURGICAL HISTORY Hx Surgeries: Yes Hx Herniorrhaphy: Yes Hx Orthopedic Surgery: Yes (left knee replacement) Other/Comment: TURBT - ANESTHESIA Hx Anesthesia: Yes Hx Anesthesia Reactions: No Hx Malignant Hyperthermia: No Meds Allergies/Adverse Reactions: Allergies Allergy/AdvReac Type Severity Reaction Status Date / Time No Known Allergies Allergy Verified 06/22/18 17:22 Physical Exam - Constitutional Appears: Non-toxic, No Acute Distress - Head Exam Head Exam: ATRAUMATIC, NORMAL INSPECTION, NORMOCEPHALIC - Eye Exam Eye Exam: Normal appearance - ENT Exam ENT Exam: Mucous Membranes Moist - Neck Exam Neck exam: Positive for: Full Rom. Negative for: Tenderness - Respiratory Exam Respiratory Exam: Clear to Auscultation Bilateral. absent: Accessory Muscle Use, Rales, Rhonchi, Wheezes, Respiratory Distress - Cardiovascular Exam Cardiovascular Exam: REGULAR RHYTHM, RRR - GI/Abdominal Exam GI & Abdominal Exam: Normal Bowel Sounds, Soft. absent: Distended, Tenderness - Extremities Exam Extremities exam: Negative for: calf tenderness, pedal edema, tenderness - Neurological Exam Neurological exam: Alert, Oriented x3 - Skin Skin Exam: Dry, Intact, Normal Color, Warm Results - Vital Signs Recent Vital Signs: Last Vital Signs Temp Pulse 58 L 06/25/18 01:09 Resp 16 06/25/18 01:09 BP 154/64 H 06/25/18 01:09 Pulse Ox 99 06/25/18 01:20 Assessment & Plan (1) Chest pain Status: Acute (2) Suicidal ideation Status: Acute (3) COPD (chronic obstructive pulmonary disease) Status: Chronic (4) Hypertension Status: Chronic Priority: Low - Assessment and Plan (Free Text) Assessment: 68 y/o woman / pmh of COPD, HTN, and psych disorder sent to ED after ELEMENTARY EDUCATION TUTOR called from psych unit for chest pain Plan: Chest pain - r/o ACS - vitals signs stable - CBC: pending - coags: pending - CMP: pending - troponin: pending - EKG: NSR, no acute ST elevation/depression - CXR: pending - ASA 162 mg PO stat - ASA 81 mg PO daily - f/u troponins x3 - f/u repeat EKG - admit to Tele - monitor for acute changes COPD - c/w ventolin, and advair HTN - c/w metoprolol succinate, valsartan Suicidal Ideation - maintain 1:1 - c/w sertraline, ativan Prophylactic measures - DVT: lovenox 40 mg SC daily
[2018-06-25 02:03] LABS: BASO # 0.1 K/uL (0.0-0.2); BASO % 0.5 % (0.0-2.0); HEMOGLOBIN 12.4 g/dL (12.0-16.0); LYMPH # 0.6 K/uL (1.0-4.3); LYMPH % 3.2 % (20.0-40.0); MEAN CELL VOLUME 87.1 fl (81.0-99.0); MEAN CORPUSCULAR HEMOGLOBIN 29.4 pg (27.0-31.0); MEAN CORPUSCULAR HGB CONC 33.7 g/dL (33.0-37.0); MONO # 0.7 K/uL (0.0-0.8); MONO % 3.9 % (0.0-10.0); NEUT # 16.7 K/uL (1.8-7.0); NEUT % 92.4 % (50.0-75.0); PLATELET COUNT 223 K/uL (130-400); RBC 4.22 Mil/uL (3.80-5.20); RED CELL DISTRIBUTION WIDTH 14.6 % (11.5-14.5); WHITE BLOOD COUNT 18.1 K/uL (4.8-10.8)
[2018-06-25 02:06] LABS: BLOOD UREA NITROGEN 27 mg/dl (7-17); CALCIUM 8.4 mg/dL (8.4-10.2); GFR NON-AFRICAN AMERICAN > 60
[2018-06-25 02:13] LABS: INR 1.1; PROTHROMBIN TIME 11.7 Seconds (9.8-13.1)
[2018-06-25 02:16] LABS: PARTIAL THROMBOPLASTIN TIME 21.2 Seconds (25.6-37.1)
[2018-06-25 03:00] LABS: LYMPHOCYTE 2 % (20-50); MONOCYTE 2 % (0-10); NEUTROPHIL 96 % (42-75); TOTAL CELLS COUNTED 100
[2018-06-25 03:01] LABS: PLATELET ESTIMATE NORMAL (NORMAL)
[2018-06-25 06:51] VITALS: BMI 21.9
[2018-06-25] MEDS: Metoprolol Succinate 50 mg XL Tab PO SCH ×2 (08:20→16:09)
[2018-06-25] MEDS: Cholecalciferol 1,000 INTLU TAB PO SCH (08:22)
[2018-06-25] MEDS: Enoxaparin 40 mg Syringe SC SCH (08:22)
[2018-06-25] MEDS: Fluticasone-Salmeterol 250-50mcg Diskus IH SCH ×2 (08:23→21:51)
[2018-06-25] MEDS: Omega-3-Acid Ethyl Esters 1 GM Cap PO SCH (09:45)
[2018-06-25] MEDS: Sodium Chloride 0.9% 250 ML IV SCH ×6 (10:04→21:55)
--- NOTE | 2018-06-25 12:35 | CARD ---
APPROVED REPORT Date of service: 06/25/2018 EKG Measurement Heart [id number] <Conclusion> Sinus bradycardia Otherwise normal ECG
--- NOTE | 2018-06-25 12:35 | RAD ---
Date of service: 06/25/2018 PROCEDURE: CHEST RADIOGRAPH, 1 VIEW HISTORY: chest pain COMPARISON: 06/22/2018. FINDINGS: LUNGS: The lungs are well inflated and clear. PLEURA: No pneumothorax or pleural fluid seen. CARDIOVASCULAR: Normal. OSSEOUS STRUCTURES: No significant abnormalities. VISUALIZED UPPER ABDOMEN: Normal. OTHER FINDINGS: None. IMPRESSION: No active pulmonary disease.
[2018-06-25 13:48] LABS: BLOOD UREA NITROGEN 21 mg/dl (7-17); GFR NON-AFRICAN AMERICAN > 60
[2018-06-25 13:49] LABS: CALCIUM 8.6 mg/dL (8.4-10.2)
[2018-06-25] MEDS ORDERED: Albuterol-Ipratrop 3 mg / 0.5 (3 ml) UD INH STA (17:17)
[2018-06-25] MEDS ORDERED: Albuterol-Ipratrop 3 mg / 0.5 (3 ml) UD ONE (17:23)
[2018-06-25 17:32] LABS: ABG ALLEN TEST YES; ARTERIAL BLOOD GAS HCO3 33.8 mmol/L (21-28); ARTERIAL BLOOD GAS HEMOGLOBIN 13.7 g/dL (11.7-17.4); ARTERIAL BLOOD GAS O2 CAPACITY 18.7 mL/dL (16-24); ARTERIAL BLOOD GAS O2 CONTENT 18.5 ML/dL (15-23); ARTERIAL BLOOD GAS O2 SAT 98.9 % (95-98); ARTERIAL BLOOD GAS PCO2 51 mm/Hg (35-45); ARTERIAL BLOOD GAS PH 7.47 (7.35-7.45); ARTERIAL BLOOD GAS PO2 110 mm/Hg (80-100); ARTERIAL BLOOD GAS TCO2 38.7 mmol/L (22-28)
[2018-06-25] MEDS: Influenza Vaccine 60 MCG/0.5 ML SYR (3 yr & up) IM ONE ×2 (18:46→18:54)
[2018-06-26] MEDS: Sodium Chloride 0.9% 250 ML IV SCH ×3 (01:23→04:30)
[2018-06-26] MEDS: Metoprolol Succinate 50 mg XL Tab PO SCH (09:08)
[2018-06-26] MEDS: Cholecalciferol 1,000 INTLU TAB PO SCH (09:08)
[2018-06-26] MEDS: Albuterol HFA 90 mcg/actuation (8 g) IH PRN (09:09)
[2018-06-26] MEDS: Omega-3-Acid Ethyl Esters 1 GM Cap PO SCH (09:10)
[2018-06-26] MEDS: Fluticasone-Salmeterol 250-50mcg Diskus IH SCH ×2 (09:12→21:47)
[2018-06-26] MEDS: Enoxaparin 40 mg Syringe SC SCH (09:12)
[2018-06-26 09:15] LABS: MEAN CELL VOLUME 85.3 fl (81.0-99.0); MEAN CORPUSCULAR HGB CONC 35.1 g/dL (33.0-37.0); RBC 4.68 Mil/uL (3.80-5.20); RED CELL DISTRIBUTION WIDTH 14.1 % (11.5-14.5)
[2018-06-26 09:17] LABS: BLOOD UREA NITROGEN 16 mg/dl (7-17); CALCIUM 8.3 mg/dL (8.4-10.2); GFR NON-AFRICAN AMERICAN > 60
--- NOTE | 2018-06-26 13:48 | CP.PCM.PN ---
Addendum entered and electronically signed by Joanne Correa MD 06/26/18 17:31: Patient was seen and examined bedside. All chart and clinical data reviewed . Care resumed . Case discussed with resident . Agree with assessment and plan. Chronically ill female sitting in bed , complaining of dyspnea at rest while on O2 via NC , chest congestion , productive cough with yellowish ,greenish sputum. Chest pain has resolved Has soft BM will continue tele monitoring Start Duoneb RTC , continuos O2 via NC Started Mucinex PO and Zithromax PO Check sputum cx Decreased Metoprolol dose due to bradycardia and increased Losartan dose due to uncontrolled BP Original Note: Subjective - Date & Time of Evaluation Date of Evaluation: 06/26/18 Time of Evaluation: 09:10 - Subjective Subjective: Patient seen at bedside. Chest pain resolved. Patient c/o feeling drowsy and SOB. Afebrile. Tolerating PO. No changes in urination or stools. All blood work reviewed. Evaluated by Psych at bedside this morning. Increased thickened sputum production Objective - Vital Signs/Intake and Output Vital Signs (last 24 hours): Temp Pulse Resp BP Pulse Ox 97.9 F 58 L 20 159/82 H 94 L 06/26/18 09:07 06/26/18 09:08 06/26/18 09:00 06/26/18 09:08 06/26/18 09:00 - Medications Medications: Current Medications Acetaminophen (Tylenol 325mg Tab) 650 mg PO Q6 PRN PRN Reason: Headache Last Admin: 06/26/18 09:07 Dose: 650 mg Albuterol (Ventolin Hfa 90 Mcg/Actuation (8 G)) 2 puff IH RQ6 PRN PRN Reason: Shortness of Breath Last Admin: 06/26/18 09:09 Dose: 2 puff Albuterol/Ipratropium (Duoneb 3 Mg/0.5 Mg (3 Ml) Ud) 3 ml INH RQID SHANTEL Aspirin (Aspirin Chewable) 81 mg PO DAILY SHANTEL Last Admin: 06/26/18 09:11 Dose: 81 mg Azithromycin (Zithromax) 500 mg PO DAILY [facility]ANTEL; Protocol Baclofen (Lioresal) 10 mg PO Q8H SHANTEL Last Admin: 06/26/18 09:10 Dose: 10 mg Cholecalciferol (Vitamin D) 1,000 intlu PO DAILY [facility]EL Last Admin: 06/26/18 09:08 Dose: 1,000 intlu Clonazepam (Klonopin) 0.5 mg PO Q12 PRN PRN Reason: Anxiety Enoxaparin Sodium (Lovenox) 40 mg SC DAILY [facility]; Protocol Last Admin: 06/26/18 09:12 Dose: 40 mg Famotidine (Pepcid) 40 mg PO DAILY [facility] Last Admin: 06/26/18 11:49 Dose: 40 mg Gabapentin (Neurontin) 300 mg PO Q8 [facility] Last Admin: 06/26/18 09:10 Dose: 300 mg Guaifenesin/Dextromethorphan (Mucinex-Dm 600-30 Mg) 1 tab PO BID [facility] Lorazepam (Ativan) 0.5 mg PO DAILY [facility] Last Admin: 06/26/18 09:33 Dose: 0.5 mg Losartan Potassium (Cozaar) 100 mg PO DAILY [facility] Last Admin: 06/26/18 11:49 Dose: 100 mg Metoprolol Succinate (Toprol Xl) 50 mg PO DAILY [facility] Last Admin: 06/26/18 09:08 Dose: Not Given Qmriz-[id number] Ethyl Esters (Lovaza) 1 gm PO DAILY [facility] Last Admin: 06/26/18 09:10 Dose: 1 gm Prednisone (Prednisone Tab) 40 mg PO DAILY [facility] Last Admin: 06/26/18 11:50 Dose: 40 mg Fluticasone/Salmeterol (Advair Diskus 250/50) 1 puff IH Q12 [facility] Last Admin: 06/26/18 09:12 Dose: 1 puff Sertraline HCl (Zoloft) 50 mg PO DAILY [facility] Last Admin: 06/26/18 09:09 Dose: 50 mg - Labs Labs: 06/26/18 08:30 06/26/18 08:30 PT 11.7 Seconds (9.8-13.1) 06/25/18 01:25 INR 1.1 06/25/18 01:25 APTT 21.2 Seconds (25.6-37.1) L 06/25/18 01:25 - Constitutional Appears: Non-toxic, In Acute Distress (Mild due SOB) - Eye Exam Eye Exam: EOMI, PERRL - ENT Exam ENT Exam: Mucous Membranes Moist - Respiratory Exam Respiratory Exam: Decreased Breath Sounds (B/L), Wheezes, Respiratory Distress (Mild), NORMAL BREATHING PATTERN. absent: Rales, Stridor - Cardiovascular Exam Cardiovascular Exam: REGULAR RHYTHM, +S1, +S2. absent: Gallop - GI/Abdominal Exam GI & Abdominal Exam: Soft, Normal Bowel Sounds. absent: Tenderness - Extremities Exam Extremities Exam: Normal Capillary Refill. absent: Pedal Edema - Neurological Exam Neurological Exam: Alert, Awake, Oriented x3 - Psychiatric Exam Psychiatric exam: Flat Affect - Skin Skin Exam: Warm. absent: Pallor, Rash Assessment and Plan - Assessment and Plan (Free Text) Assessment: 68 y/o woman / pmh of COPD, HTN, and psych disorder admitted to telemetry for COPD exacerbation and posteriorly for CP, 2 nights ago COPD exacerbation Still wheezing and some resp distress on PE CO2 retention on BMP Increased thickened sputum production o2sat 96 NC 2L Restart steroids Start Mucinex and Azythromycin C/w O2 Duonebs around the clock Monitor F/U BMP AM Chest pain Resolved ACS ruled out Tropsx3 normal HTN Chronic SBP slightly elevated, HR borderline low Decrease Toprol to daily Increase Losartan dose Monitor Depression C/w Current meds Psych consulted. F/U recs C/W 1 to 1 obs for suicidal risk DVT prophylaxis C/W Lovenox daily
[2018-06-26] MEDS: Albuterol-Ipratrop 3 mg / 0.5 (3 ml) UD INH SCH ×2 (15:47→19:09)
--- NOTE | 2018-06-26 17:01 | CP.PCM.CON ---
History of Present Illness - History of Present Illness History of Present Illness: 68 yo female has history of COPD, HTN, Depression and Gastritis and was admitted because of SOB and wheezing of 2 days duration and suicidal ideation. pt on evaluation reported feeling increasingly depressed relates that to her medical condition and being lonely, pt reported she has no social support, stated she has no energy, poor sleep and poor appetite feeling hopeless and helpless, reported having passive suicidal ideation wishing she was yet denied any active plan or intent in the hospital, stated she is willing to get help, denied psychotic symptoms denied substance use Past Patient History - Infectious Disease Hx of Infectious Diseases: None - Tetanus Immunizations Tetanus Immunization: Unknown - Past Medical History & Family History Past Medical History?: Yes - Past Social History Smoking Status: Heavy Smoker > 10 Cigarettes Daily - CARDIAC Hx Cardiac Disorders: Yes Hx Hypertension: Yes Hx Peripheral Edema: Yes - PULMONARY Hx Respiratory Disorders: Yes Hx Asthma: Yes Hx Chronic Obstructive Pulmonary Disease (COPD): Yes Hx Emphysema: Yes Hx Pneumonia: Yes (CHILDHOOD) - NEUROLOGICAL Hx Neurological Disorder: No - HEENT Hx HEENT Problems: No - RENAL Hx Chronic Kidney Disease: No - ENDOCRINE/METABOLIC Hx Endocrine Disorders: No - HEMATOLOGICAL/ONCOLOGICAL Hx Blood Disorders: No Hx Human Immunodeficiency Virus (HIV): No - INTEGUMENTARY Hx Dermatological Problems: No - MUSCULOSKELETAL/RHEUMATOLOGICAL Hx Musculoskeletal Disorders: Yes Hx Arthritis: Yes Hx Falls: No - GASTROINTESTINAL Hx Gastrointestinal Disorders: Yes Hx Gastritis: Yes - GENITOURINARY/GYNECOLOGICAL Hx Genitourinary Disorders: Yes Hx Bladder Cancer: Yes Other/Comment: FREGUENT URINATION - PSYCHIATRIC Hx Psychophysiologic Disorder: Yes Hx Anxiety: Yes Hx Depression: Yes Hx Substance Use: No - SURGICAL HISTORY Hx Surgeries: Yes Hx Herniorrhaphy: Yes Hx Orthopedic Surgery: Yes (left knee replacement) Other/Comment: TURBT - ANESTHESIA Hx Anesthesia: Yes Hx Anesthesia Reactions: No Hx Malignant Hyperthermia: No Meds Allergies/Adverse Reactions: Allergies Allergy/AdvReac Type Severity Reaction Status Date / Time No Known Allergies Allergy Verified 06/22/18 17:22 - Medications Medications: Current Medications Acetaminophen (Tylenol 325mg Tab) 650 mg PO Q6 PRN PRN Reason: Headache Last Admin: 06/26/18 09:07 Dose: 650 mg Albuterol (Ventolin Hfa 90 Mcg/Actuation (8 G)) 2 puff IH RQ6 PRN PRN Reason: Shortness of Breath Last Admin: 06/26/18 09:09 Dose: 2 puff Albuterol/Ipratropium (Duoneb 3 Mg/0.5 Mg (3 Ml) Ud) 3 ml INH RQID [facility] Last Admin: 06/26/18 15:47 Dose: 3 ml Aspirin (Aspirin Chewable) 81 mg PO DAILY [facility] Last Admin: 06/26/18 09:11 Dose: 81 mg Azithromycin (Zithromax) 500 mg PO DAILY [facility]; Protocol Baclofen (Lioresal) 10 mg PO Q8H [facility] Last Admin: 06/26/18 09:10 Dose: 10 mg Cholecalciferol (Vitamin D) 1,000 intlu PO DAILY [facility] Last Admin: 06/26/18 09:08 Dose: 1,000 intlu Clonazepam (Klonopin) 0.5 mg PO Q12 PRN PRN Reason: Anxiety Enoxaparin Sodium (Lovenox) 40 mg SC DAILY [facility]; Protocol Last Admin: 06/26/18 09:12 Dose: 40 mg Famotidine (Pepcid) 40 mg PO DAILY [facility] Last Admin: 06/26/18 11:49 Dose: 40 mg Gabapentin (Neurontin) 300 mg PO Q8 [facility] Last Admin: 06/26/18 09:10 Dose: 300 mg Guaifenesin/Dextromethorphan (Mucinex-Dm 600-30 Mg) 1 tab PO BID [facility] Lorazepam (Ativan) 0.5 mg PO DAILY [facility] Last Admin: 06/26/18 09:33 Dose: 0.5 mg Losartan Potassium (Cozaar) 100 mg PO DAILY [facility] Last Admin: 06/26/18 11:49 Dose: 100 mg Metoprolol Succinate (Toprol Xl) 50 mg PO DAILY [facility] Last Admin: 06/26/18 09:08 Dose: Not Given [id number] Ethyl Esters (Lovaza) 1 gm PO DAILY [facility] Last Admin: 06/26/18 09:10 Dose: 1 gm Prednisone (Prednisone Tab) 40 mg PO DAILY [facility] Last Admin: 06/26/18 11:50 Dose: 40 mg Fluticasone/Salmeterol (Advair Diskus 250/50) 1 puff IH Q12 [facility] Last Admin: 06/26/18 09:12 Dose: 1 puff Sertraline HCl (Zoloft) 50 mg PO DAILY [facility] Last Admin: 06/26/18 09:09 Dose: 50 mg Results - Vital Signs Recent Vital Signs: Last Vital Signs Temp 98.8 F 06/26/18 16:22 Pulse 78 06/26/18 16:22 Resp 20 06/26/18 16:22 BP 156/79 H 06/26/18 16:22 Pulse Ox 96 06/26/18 16:22 - Labs Result Diagrams: 06/26/18 08:30 06/26/18 08:30 Labs: Laboratory Results - last 24 hr 06/25/18 06/25/18 06/26/18 17:10 19:06 08:30 WBC 15.0 H RBC 4.68 Hgb 14.0 Hct 39.9 MCV 85.3 MCH 30.0 MCHC 35.1 RDW 14.1 Plt Count 190 pCO2 51 H pO2 110 H HCO3 33.8 H ABG pH 7.47 H ABG Total CO2 38.7 H ABG O2 Saturation 98.9 H ABG O2 Content 18.5 ABG Base Excess 11.5 H ABG Hemoglobin 13.7 ABG Carboxyhemoglobin 1.9 H POC ABG HHb (Measured) 1.1 ABG Methemoglobin 1.7 ABG O2 Capacity 18.7 Vladimir Test Yes A-a O2 Difference 26.0 Hgb O2 Saturation 95.3 Liter Flow 2 Vent Mode Nc FiO2 28.0 Sodium Potassium Chloride Carbon Dioxide Anion Gap BUN Creatinine Est GFR ( Amer) Est GFR (Non-Af Amer) Random Glucose Calcium Troponin I < 0.0120 06/26/18 08:30 WBC RBC Hgb Hct MCV MCH MCHC RDW Plt Count pCO2 pO2 HCO3 ABG pH ABG Total CO2 ABG O2 Saturation ABG O2 Content ABG Base Excess ABG Hemoglobin ABG Carboxyhemoglobin POC ABG HHb (Measured) ABG Methemoglobin ABG O2 Capacity Vladimir Test A-a O2 Difference Hgb O2 Saturation Liter Flow Vent Mode FiO2 Sodium 129 L Potassium 4.6 Chloride 88 L Carbon Dioxide 40 H* Anion Gap 6 L BUN 16 Creatinine 0.4 L Est GFR ( Amer) > 60 Est GFR (Non-Af Amer) > 60 Random Glucose 80 Calcium 8.3 L Troponin I Assessment & Plan - Assessment and Plan (Free Text) Assessment: 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
[2018-06-26] MEDS: guaiFENesin-DM 600-30 mg ER Tab PO SCH (18:13)
[2018-06-27 05:52] LABS: HEMOGLOBIN 13.1 g/dL (12.0-16.0); MEAN CELL VOLUME 86.2 fl (81.0-99.0); MEAN CORPUSCULAR HEMOGLOBIN 29.6 pg (27.0-31.0); MEAN CORPUSCULAR HGB CONC 34.3 g/dL (33.0-37.0); RBC 4.42 Mil/uL (3.80-5.20); RED CELL DISTRIBUTION WIDTH 14.1 % (11.5-14.5); WHITE BLOOD COUNT 13.5 K/uL (4.8-10.8)
[2018-06-27 05:55] LABS: BLOOD UREA NITROGEN 15 mg/dl (7-17); CALCIUM 8.5 mg/dL (8.4-10.2); GFR NON-AFRICAN AMERICAN > 60
[2018-06-27] MEDS: Albuterol-Ipratrop 3 mg / 0.5 (3 ml) UD INH SCH ×4 (08:12→19:46)
[2018-06-27] MEDS: Cholecalciferol 1,000 INTLU TAB PO SCH (09:10)
[2018-06-27] MEDS: Omega-3-Acid Ethyl Esters 1 GM Cap PO SCH (09:11)
[2018-06-27] MEDS: Metoprolol Succinate 50 mg XL Tab PO SCH (09:11)
[2018-06-27] MEDS: Enoxaparin 40 mg Syringe SC SCH (09:11)
[2018-06-27] MEDS: Fluticasone-Salmeterol 250-50mcg Diskus IH SCH ×2 (09:12→21:16)
[2018-06-27] MEDS: guaiFENesin-DM 600-30 mg ER Tab PO SCH ×2 (09:13→17:03)
--- NOTE | 2018-06-27 11:58 | CP.PCM.PN ---
Addendum entered and electronically signed by Joanne Correa MD 06/27/18 12:56: Patient seen and examined bedside. Still with chest congestion , poor air entry biltateral , diffuse wheezing and rhonchi.Coughing spells with sputum production Will increase Solumedrol to 40 mg IV Q8 Continue Duonebs RTC CT chest with contrast pulmonary consult with Dr. Tomlin Repeat ABG Case discussed with resident . Agree with assessment and plan. Original Note: Subjective - Date & Time of Evaluation Date of Evaluation: 06/27/18 Time of Evaluation: 11:53 - Subjective Subjective: Patient seen and examined at bedside. She was in no acute distress. She is very sleepy given that she received a dose of Ativan this morning given anxiety attack. She is resting comfortably and states she has generalized chest pain and coughing with shortness of breath. Denies fever, nausea, vomiting, abdominal pain and diarrhea. Objective - Vital Signs/Intake and Output Vital Signs (last 24 hours): Temp Pulse Resp BP Pulse Ox 98.4 F 64 20 187/79 H 100 06/27/18 07:59 06/27/18 09:14 06/27/18 07:59 06/27/18 09:14 06/27/18 07:59 - Medications Medications: Current Medications Acetaminophen (Tylenol 325mg Tab) 650 mg PO Q6 PRN PRN Reason: Headache Last Admin: 06/27/18 09:30 Dose: 650 mg Albuterol (Ventolin Hfa 90 Mcg/Actuation (8 G)) 2 puff IH RQ6 PRN PRN Reason: Shortness of Breath Last Admin: 06/26/18 09:09 Dose: 2 puff Albuterol/Ipratropium (Duoneb 3 Mg/0.5 Mg (3 Ml) Ud) 3 ml INH RQID [facility] Last Admin: 06/27/18 08:12 Dose: 3 ml Amlodipine Besylate (Norvasc) 10 mg PO DAILY [facility] Aspirin (Aspirin Chewable) 81 mg PO DAILY [facility] Last Admin: 06/27/18 09:09 Dose: 81 mg Azithromycin (Zithromax) 500 mg PO DAILY [facility]; Protocol Last Admin: 06/27/18 09:15 Dose: 500 mg Baclofen (Lioresal) 10 mg PO Q8H [facility] Last Admin: 06/27/18 01:34 Dose: 10 mg Cholecalciferol (Vitamin D) 1,000 intlu PO DAILY [facility] Last Admin: 06/27/18 09:10 Dose: 1,000 intlu Clonazepam (Klonopin) 0.5 mg PO Q12 PRN PRN Reason: Anxiety Last Admin: 06/27/18 11:00 Dose: 0.5 mg Enoxaparin Sodium (Lovenox) 40 mg SC DAILY [facility]; Protocol Last Admin: 06/27/18 09:11 Dose: 40 mg Famotidine (Pepcid) 40 mg PO DAILY [facility] Last Admin: 06/27/18 09:14 Dose: 40 mg Gabapentin (Neurontin) 300 mg PO Q8 [facility] Last Admin: 06/27/18 09:09 Dose: 300 mg Guaifenesin/Dextromethorphan (Mucinex-Dm 600-30 Mg) 1 tab PO BID [facility] Last Admin: 06/27/18 09:13 Dose: 1 tab Lorazepam (Ativan) 0.5 mg PO DAILY [facility] Last Admin: 06/27/18 09:30 Dose: 0.5 mg Losartan Potassium (Cozaar) 100 mg PO DAILY [facility] Last Admin: 06/27/18 09:10 Dose: 100 mg Metoprolol Succinate (Toprol Xl) 50 mg PO DAILY [facility] Last Admin: 06/27/18 09:11 Dose: 50 mg Cfkgq-4-Sven Ethyl Esters (Lovaza) 1 gm PO DAILY [facility] Last Admin: 06/27/18 09:11 Dose: 1 gm Prednisone (Prednisone Tab) 40 mg PO DAILY [facility] Last Admin: 06/27/18 09:15 Dose: 40 mg Fluticasone/Salmeterol (Advair Diskus 250/50) 1 puff IH Q12 [facility] Last Admin: 06/27/18 09:12 Dose: 1 puff Sertraline HCl (Zoloft) 50 mg PO DAILY [facility] Last Admin: 06/27/18 09:09 Dose: 50 mg - Labs Labs: 06/27/18 04:40 06/27/18 04:40 PT 11.7 Seconds (9.8-13.1) 06/25/18 01:25 INR 1.1 06/25/18 01:25 APTT 21.2 Seconds (25.6-37.1) L 06/25/18 01:25 - Constitutional Appears: Non-toxic, No Acute Distress, Older Than Stated Age - ENT Exam ENT Exam: Mucous Membranes Moist - Respiratory Exam Respiratory Exam: Decreased Breath Sounds, Wheezes (expiratory wheezes. ). absent: Prolonged Expiratory Phase - Cardiovascular Exam Cardiovascular Exam: REGULAR RHYTHM, +S1, +S2. absent: Tachycardia, JVD, Rubs - GI/Abdominal Exam GI & Abdominal Exam: Soft, Normal Bowel Sounds. absent: Distended, Firm, Guarding, Tenderness, Diminished Bowel Sounds - Extremities Exam Extremities Exam: Normal Inspection. absent: Calf Tenderness, Pedal Edema (+2 dorsalis pedis pulses bilaterally.), Tenderness - Neurological Exam Neurological Exam: Oriented x3 (Patient is sleeping. Easily arousable but very sleepy.) - Skin Skin Exam: Dry, Intact, Normal Color, Warm Assessment and Plan - Assessment and Plan (Free Text) Assessment: 68 y/o woman / pmh of COPD, HTN, and psych disorder admitted to telemetry for COPD exacerbation and for CP. Plan: COPD exacerbation Still wheezing and some resp distress on PE CO2 retention appreciated on BMP o2sat 100 NC 2L Steroids : increased to 40mg Q8H given patient's respiratory distress. Continue Mucinex and Azythromycin Duonebs around the clock Monitor Chest pain Resolved ACS ruled out Tropsx3 normal HTN Chronic SBP slightly elevated, HR borderline low Decrease Toprol to daily given bradycardia Increase Losartan dose Monitor Depression C/w Current meds Psych consulted. F/U recs 1 to 1 obs d/c'ed as psych reports that patient is not harmful to herself or others. DVT prophylaxis C/W Lovenox daily
[2018-06-27] MEDS ORDERED: Sodium Chloride 3% for Inhalation 4 ML VIAL.NEB IH PRN (12:54)
[2018-06-27] MEDS ORDERED: methylPREDNISolone 40 MG in Sodium Chloride 0.9% 50 ML IVPB SCH (13:00)
[2018-06-27] MEDS ORDERED: Sodium Chloride 0.9% 50 ML IV ONE (13:52)
[2018-06-27] MEDS ORDERED: Iohexol 300 100 ML IJ ONE (13:52)
[2018-06-27] MEDS ORDERED: Insulin Lispro (humaLOG) 100 Units/ml Inj SC ONE (14:15)
--- NOTE | 2018-06-27 15:07 | CT ---
Date of service: 06/27/2018 PROCEDURE: CT Chest with contrast HISTORY: respiratory distress COMPARISON: None available. TECHNIQUE: Contiguous axial images were obtained through the chest with intravenous contrast enhancement. Sagittal and coronal reconstructions were performed. IV contrast: 95 mL Omnipaque 300 Radiation dose (DLP): 203.3 mGy-cm. This CT exam was performed using one or more of the following dose reduction techniques: Automated exposure control, adjustment of the mA and/or kV according to patient size, and/or use of iterative reconstruction technique. FINDINGS: LUNGS: Mild centrilobular emphysema. 6 mm right lower lobe nodule. Bilateral lower lobe scarring. Clear lungs. Visualized airway clear. MEDIASTINUM: Unremarkable thoracic aorta. No aneurysm or dissection. Normal sized heart. Main pulmonary artery unremarkable. No vascular congestion. No lymphadenopathy. PLEURA: No pleural fluid. No pneumothorax. BONES: No fracture. No destructive lesion. UPPER ABDOMEN: Small hiatal hernia. Bilateral adrenal hyperplasia. Questionable inferior left adrenal nodule. Left interpolar 3.6 cm cyst. OTHER FINDINGS: None. IMPRESSION: No focal consolidation or pleural effusion. 6 mm right lower lobe nodule. Twelve month CT follow-up can be obtained in high-risk patient. Bilateral adrenal hyperplasia with questionable inferior left indeterminate adrenal nodule.
[2018-06-27] MEDS: MethylPREDNISolone 40 mg Vial IVP SCH (17:09)
[2018-06-28] MEDS: MethylPREDNISolone 40 mg Vial IVP SCH ×2 (00:33→09:03)
[2018-06-28 05:45] LABS: HEMOGLOBIN 12.8 g/dL (12.0-16.0); MEAN CELL VOLUME 86.3 fl (81.0-99.0); MEAN CORPUSCULAR HEMOGLOBIN 29.7 pg (27.0-31.0); MEAN CORPUSCULAR HGB CONC 34.4 g/dL (33.0-37.0); RBC 4.31 Mil/uL (3.80-5.20); RED CELL DISTRIBUTION WIDTH 13.9 % (11.5-14.5); WHITE BLOOD COUNT 17.8 K/uL (4.8-10.8)
[2018-06-28 05:48] LABS: BLOOD UREA NITROGEN 15 mg/dl (7-17); CALCIUM 8.8 mg/dL (8.4-10.2); GFR NON-AFRICAN AMERICAN > 60
[2018-06-28] MEDS: Albuterol-Ipratrop 3 mg / 0.5 (3 ml) UD INH SCH ×3 (08:00→15:37)
[2018-06-28 08:50] VITALS: O2SAT 95
[2018-06-28] MEDS: Cholecalciferol 1,000 INTLU TAB PO SCH (09:02)
[2018-06-28] MEDS: Fluticasone-Salmeterol 250-50mcg Diskus IH SCH (09:03)
[2018-06-28] MEDS: guaiFENesin-DM 600-30 mg ER Tab PO SCH (09:03)
[2018-06-28] MEDS: Enoxaparin 40 mg Syringe SC SCH (09:03)
[2018-06-28] MEDS: Omega-3-Acid Ethyl Esters 1 GM Cap PO SCH (09:04)
[2018-06-28] MEDS: Metoprolol Succinate 50 mg XL Tab PO SCH (09:05)
[2018-06-28] MEDS: Albuterol HFA 90 mcg/actuation (8 g) IH PRN (09:17)
--- NOTE | 2018-06-28 09:20 | CP.PCM.PN ---
Subjective - Date & Time of Evaluation Date of Evaluation: 06/28/18 Time of Evaluation: 09:20 - Subjective Subjective: Patient seen and examined at bedside. She is in no acute distress eating her breakfast. She reports she still has shortness of breath and generalized body ache. She reports good appetite. She denies nausea, vomiting, abdominal pain, and calf pain. Objective - Vital Signs/Intake and Output Vital Signs (last 24 hours): Temp Pulse Resp BP Pulse Ox 97.7 F 65 20 168/76 H 95 06/28/18 08:50 06/28/18 09:05 06/28/18 08:50 06/28/18 09:05 06/28/18 08:50 - Medications Medications: Current Medications Acetaminophen (Tylenol 325mg Tab) 650 mg PO Q6 PRN PRN Reason: Headache Last Admin: 06/28/18 04:36 Dose: 650 mg Albuterol (Ventolin Hfa 90 Mcg/Actuation (8 G)) 2 puff IH RQ6 PRN PRN Reason: Shortness of Breath Last Admin: 06/28/18 09:17 Dose: 2 puff Albuterol/Ipratropium (Duoneb 3 Mg/0.5 Mg (3 Ml) Ud) 3 ml INH RQID [facility] Last Admin: 06/28/18 08:00 Dose: 3 ml Amlodipine Besylate (Norvasc) 10 mg PO DAILY [facility] Last Admin: 06/28/18 09:04 Dose: 10 mg Aspirin (Aspirin Chewable) 81 mg PO DAILY [facility] Last Admin: 06/28/18 09:02 Dose: 81 mg Azithromycin (Zithromax) 500 mg PO DAILY [facility]; Protocol Last Admin: 06/28/18 09:02 Dose: 500 mg Baclofen (Lioresal) 10 mg PO Q8H [facility] Last Admin: 06/28/18 09:03 Dose: 10 mg Cholecalciferol (Vitamin D) 1,000 intlu PO DAILY [facility] Last Admin: 06/28/18 09:02 Dose: 1,000 intlu Clonazepam (Klonopin) 0.5 mg PO Q12 PRN PRN Reason: Anxiety Last Admin: 06/28/18 09:07 Dose: 0.5 mg Enoxaparin Sodium (Lovenox) 40 mg SC DAILY [facility]; Protocol Last Admin: 06/28/18 09:03 Dose: 40 mg Famotidine (Pepcid) 40 mg PO DAILY [facility] Last Admin: 06/28/18 09:02 Dose: 40 mg Gabapentin (Neurontin) 300 mg PO Q8 [facility] Last Admin: 06/28/18 09:03 Dose: 300 mg Guaifenesin/Dextromethorphan (Mucinex-Dm 600-30 Mg) 1 tab PO BID [facility] Last Admin: 06/28/18 09:03 Dose: 1 tab Lorazepam (Ativan) 0.5 mg PO DAILY [facility] Last Admin: 06/28/18 09:09 Dose: 0.5 mg Losartan Potassium (Cozaar) 100 mg PO DAILY [facility] Last Admin: 06/28/18 09:05 Dose: 100 mg Methylprednisolone (Solu-Medrol) 40 mg IVP Q8 [facility] Last Admin: 06/28/18 09:03 Dose: 40 mg Metoprolol Succinate (Toprol Xl) 50 mg PO DAILY [facility] Last Admin: 06/28/18 09:05 Dose: 50 mg Ipgpi-[id number] Ethyl Esters (Lovaza) 1 gm PO DAILY [facility] Last Admin: 06/28/18 09:04 Dose: 1 gm Fluticasone/Salmeterol (Advair Diskus 250/50) 1 puff IH Q12 [facility] Last Admin: 06/28/18 09:03 Dose: 1 puff Sertraline HCl (Zoloft) 50 mg PO DAILY [facility] Last Admin: 06/28/18 09:03 Dose: 50 mg - Labs Labs: 06/28/18 04:20 06/28/18 04:20 PT 11.7 Seconds (9.8-13.1) 06/25/18 01:25 INR 1.1 06/25/18 01:25 APTT 21.2 Seconds (25.6-37.1) L 06/25/18 01:25 - Constitutional Appears: Non-toxic, No Acute Distress, Older Than Stated Age - Eye Exam Eye Exam: Normal appearance - ENT Exam ENT Exam: Mucous Membranes Moist - Cardiovascular Exam Cardiovascular Exam: REGULAR RHYTHM, RRR, +S1, +S2. absent: Diastolic murmur, Gallop, JVD, Rubs, Murmur - GI/Abdominal Exam GI & Abdominal Exam: Soft, Normal Bowel Sounds. absent: Distended, Firm, Guarding, Rigid, Tenderness - Extremities Exam Extremities Exam: Normal Inspection. absent: Calf Tenderness, Pedal Edema, Tenderness - Neurological Exam Neurological Exam: Alert, Awake, Oriented x3 - Skin Skin Exam: Dry, Intact, Normal Color, Warm Assessment and Plan - Assessment and Plan (Free Text) Assessment: 68 y/o woman / pmh of COPD, HTN, and psych disorder admitted to telemetry for COPD exacerbation and for CP. Plan: COPD exacerbation Still wheezing and some resp distress on PE CT chest: no focal consolidation or pleural effusion. CO2 retention appreciated on BMP o2sat 100 NC 2L Solumedrol 40mg Q8H given patient's respiratory distress. Continue Mucinex and Azythromycin Duonebs ATC Monitor Chest pain Resolved ACS ruled out Tropsx3 normal HTN Chronic SBP slightly elevated, HR borderline low Toprol was previously decreased to daily due to previous bradycardia Losartan dose was increased Monitor Depression C/w Current meds Psych consulted: 1 to 1 obs d/c'ed as psych reports that patient is not harmful to herself or others. DVT prophylaxis C/W Lovenox daily
--- NOTE | 2018-06-28 11:51 | CP.PCM.DIS ---
Addendum entered and electronically signed by Joanne Correa MD 06/28/18 17:11: Patient seen and examined bedside. Feeling better . Still with chest congestion, rhonchi and coughing spells that is chronic .Improved Hemodynamically stable , afebrile Saturating 100 % on 2 L O2 vi anC WBC 17 K - most likely secondary to steroids CT chest showed no active disease Na 129 Will discharge patient to psych unit . Will continue to follow up patient medically Will continue Zithromax and Prednisone high dose tapering slowly Continue H2O restriction due to hyponatremia Started Diamox for hypercarbia Will discharge patient to spych unit today Original Note: Provider - Provider Date of Admission: 06/27/18 14:40 Attending physician: Soheila Banuelos MD Consults: Dr. Patel- Psychiatry Time Spent in preparation of Discharge (in minutes): 30 Diagnosis - Discharge Diagnosis (1) Chest pain Status: Acute (2) Acute respiratory failure with hypercapnia Status: Acute Priority: High (3) Depression Status: Acute (4) Hypertension Status: Chronic Priority: Low Hospital Course - Lab Results Lab Results: Micro Results 06/25/18 07:00 Nose MRSA Culture (Admit) - Final MRSA NOT DETECTED Most Recent Lab Values WBC 17.8 K/uL (4.8-10.8) H 06/28/18 04:20 RBC 4.31 Mil/uL (3.80-5.20) 06/28/18 04:20 Hgb 12.8 g/dL (12.0-16.0) 06/28/18 04:20 Hct 37.3 % (34.0-47.0) 06/28/18 04:20 MCV 86.3 fl (81.0-99.0) 06/28/18 04:20 MCH 29.7 pg (27.0-31.0) 06/28/18 04:20 MCHC 34.4 g/dL (33.0-37.0) 06/28/18 04:20 RDW 13.9 % (11.5-14.5) 06/28/18 04:20 Plt Count 211 K/uL (130-400) 06/28/18 04:20 MPV 7.0 fl (7.2-11.7) L 06/25/18 01:25 Neut % (Auto) 92.4 % (50.0-75.0) H 06/25/18 01:25 Lymph % (Auto) 3.2 % (20.0-40.0) L 06/25/18 01:25 Wilkes % (Auto) 3.9 % (0.0-10.0) 06/25/18 01:25 Eos % (Auto) 0.0 % (0.0-4.0) 06/25/18 01:25 Baso % (Auto) 0.5 % (0.0-2.0) 06/25/18 01:25 Neut # (Auto) 16.7 K/uL (1.8-7.0) H 06/25/18 01:25 Lymph # (Auto) 0.6 K/uL (1.0-4.3) L 06/25/18 01:25 Wilkes # (Auto) 0.7 K/uL (0.0-0.8) 06/25/18 01:25 Eos # (Auto) 0.0 K/uL (0.0-0.7) 06/25/18 01:25 Baso # (Auto) 0.1 K/uL (0.0-0.2) 06/25/18 01:25 Neutrophils % (Manual) 96 % (42-75) H 06/25/18 01:25 Lymphocytes % (Manual) 2 % (20-50) L 06/25/18 01:25 Monocytes % (Manual) 2 % (0-10) 06/25/18 01:25 Platelet Estimate Normal (NORMAL) 06/25/18 01:25 RBC Morphology Normal (NORMAL) 06/25/18 01:25 PT 11.7 Seconds (9.8-13.1) 06/25/18 01:25 INR 1.1 06/25/18 01:25 APTT 21.2 Seconds (25.6-37.1) L 06/25/18 01:25 pCO2 51 mm/Hg (35-45) H 06/25/18 17:10 pO2 110 mm/Hg (80-100) H 06/25/18 17:10 HCO3 33.8 mmol/L (21-28) H 06/25/18 17:10 ABG pH 7.47 (7.35-7.45) H 06/25/18 17:10 ABG Total CO2 38.7 mmol/L (22-28) H 06/25/18 17:10 ABG O2 Saturation 98.9 % (95-98) H 06/25/18 17:10 ABG O2 Content 18.5 ML/dL (15-23) 06/25/18 17:10 ABG Base Excess 11.5 mmol/L (-2.0-3.0) H 06/25/18 17:10 ABG Hemoglobin 13.7 g/dL (11.7-17.4) 06/25/18 17:10 ABG Carboxyhemoglobin 1.9 % (0.5-1.5) H 06/25/18 17:10 POC ABG HHb (Measured) 1.1 % (0.0-5.0) 06/25/18 17:10 ABG Methemoglobin 1.7 % (0.0-3.0) 06/25/18 17:10 ABG O2 Capacity 18.7 mL/dL (16-24) 06/25/18 17:10 Vladimir Test Yes 06/25/18 17:10 A-a O2 Difference 26.0 mm/Hg 06/25/18 17:10 Hgb O2 Saturation 95.3 % (95.0-98.0) 06/25/18 17:10 Liter Flow 2 06/25/18 17:10 Vent Mode Nc 06/25/18 17:10 FiO2 28.0 % 06/25/18 17:10 Sodium 129 mmol/l (132-148) L 06/28/18 04:20 Potassium 4.5 MMOL/L (3.6-5.0) 06/28/18 04:20 Chloride 90 mmol/L (98-107) L 06/28/18 04:20 Carbon Dioxide 35 mmol/L (22-30) H 06/28/18 04:20 Anion Gap 9 (10-20) L 06/28/18 04:20 BUN 15 mg/dl (7-17) 06/28/18 04:20 Creatinine 0.4 mg/dl (0.7-1.2) L 06/28/18 04:20 Est GFR ( Amer) > 60 06/28/18 04:20 Est GFR (Non-Af Amer) > 60 06/28/18 04:20 Random Glucose 122 mg/dL (65-105) H 06/28/18 04:20 Calcium 8.8 mg/dL (8.4-10.2) 06/28/18 04:20 Troponin I < 0.0120 ng/mL (0.00-0.120) 06/25/18 19:06 - Hospital Course Hospital Course: 68 y/o woman / pmh of COPD, HTN, and psych disorder 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 Patient complained of sudden left sided chest pain w/ associated dyspnea. Pain is not reproducible w/ palpation and non- radiating. Patient reported chest pain 10/10 prior to sublingual nitro and became 5-6/10 after treatment. Patient denies previous episodes. Patient reports multiple family members w/ AR in the past and at early ages. Patient is a current smoker and smokes about 1 pack per day. ED course: V/S: 58 beats/min, 154/64 mm hg, resp 16, O2 99% NC CBC: leukocytosis; coags: PTT: 21.2 ; PT: 11.7 ; INR: 1.1 ; CMP: Hyponatremia; hypercarbia. troponin: negative x3. EKG: NSR, no acute ST elevation/depression CXR: No active disease. Medication given: ASA 162 mg PO stat Floor Course: Admitted for COPD exac to med/surg. During hospital stay patient had productive cough of greenish/ yellow sputum. Given Leukocytosis and CO2 retention on BMP patient was started on Duonebs ATC, Azithromycin, mucinex, and high dose steroids. Chest pain resolved and Troponins were negative x3. EKG was NSR, no acute ST elevation/depression. Toprol was decreased to daily given bradycardia on the floor. Losartan dose was increased for hypertension. Patient's psychiatric medications were continued and psychiatry consult was appreciated, patient to be admitted to psychiatric inpatient after medically cleared. Discharge Exam - Head Exam Head Exam: ATRAUMATIC, NORMAL INSPECTION, NORMOCEPHALIC - Eye Exam Eye Exam: Normal appearance - ENT Exam ENT Exam: Mucous Membranes Moist - Respiratory Exam Respiratory Exam: Clear to PA & Lateral, Wheezes (Expiratory wheezing), UNREMARKABLE. absent: Chest Wall Tenderness, Decreased Breath Sounds, Rales, Rhonchi, Respiratory Distress, NORMAL BREATHING PATTERN - Cardiovascular Exam Cardiovascular Exam: REGULAR RHYTHM, RRR, +S1, +S2. absent: Diastolic murmur, JVD, Rubs, +S4, Systolic Murmur - GI/Abdominal Exam GI & Abdominal Exam: Normal Bowel Sounds, Soft. absent: Distended, Firm, Guarding, Hernia, Organomegaly, Rebound, Rigid - Extremities Exam Extremities exam: normal inspection, pedal pulses present - Neurological Exam Neurological exam: Alert, Oriented x3 - Psychiatric Exam Psychiatric exam: Depressed Additional comments: No suicidal ideation or plan. No homicidal plan or intention. - Skin Skin Exam: Dry, Intact, Normal Color, Warm Discharge Plan - Follow Up Plan Condition: FAIR Disposition: DISCHARGE TO PSYCH HOSPITAL Additional Instructions: Patient to continue appropriate care on [facility] psychiatric unit. Continue current Steroid dosage.
[2018-06-28 16:03] VITALS: BP 122/64; PULSE 81; RESP 18; TEMP 98.5
== END 2018-06-28 18:05 | DRG 190 ==
LOC: H.ER 01:05 → H.ERHOLD 01:20 → H.ICU/CCU 02:58 → H.TEL 12:59 → OBSVTOIN 06-27 14:40
PROVIDERS: ADMIT Internal Medicine; ATTEND Internal Medicine
PROC: 5A0945Z Assistance with Respiratory Ventilation, 24-96 Consecutive Hours (ICD-10-PCS; principal; 2018-06-25)
DX: J44.1 Chronic obstructive pulmonary disease with (acute) exacerbation (principal); J96.02 Acute respiratory failure with hypercapnia; E87.1 Hypo-osmolality and hyponatremia; R45.851 Suicidal ideations; F32.2 Major depressive disorder, single episode, severe without psychotic features; I10 Essential (primary) hypertension; F17.210 Nicotine dependence, cigarettes, uncomplicated; M19.90 Unspecified osteoarthritis, unspecified site; M79.7 Fibromyalgia; K29.70 Gastritis, unspecified, without bleeding; Z85.51 Personal history of malignant neoplasm of bladder; F41.9 Anxiety disorder, unspecified; R00.1 Bradycardia, unspecified; T44.7X5A Adverse effect of beta-adrenoreceptor antagonists, initial encounter; D72.829 Elevated white blood cell count, unspecified; T38.0X5A Adverse effect of glucocorticoids and synthetic analogues, initial encounter; Z96.652 Presence of left artificial knee joint

== ENCOUNTER 2018-06-28 18:31 | Inpatient (IN) | payer MEDICARE ==
[2018-06-28] MEDS ORDERED: Sodium Chloride 3% for Inhalation 4 ML VIAL.NEB IH PRN (20:29)
[2018-06-28] MEDS ORDERED: Magnesium Hydroxide Susp 30 ml UD PO PRN (20:44)
[2018-06-28] MEDS ORDERED: Bismuth Subsalicylate 262 mg/15 ml Sus (240 ml) PO PRN (20:44)
[2018-06-28] MEDS ORDERED: Alum-Mag Hydrox-Simethicone Susp (30 mL) PO PRN (20:44)
[2018-06-28] MEDS: Fluticasone-Salmeterol 250-50mcg Diskus IH SCH (23:26)
--- NOTE | 2018-06-28 23:40 | PCM.BM ---
<Karolyn Smith - Last Filed: 06/28/18 23:38> Treatment Plan Problems - Problems identified on initial assessmt Self harm Date Initiated: 06/28/18 Time Initiated: 20:30 Assessment reference: NA Status: Active Suicidal Ideation Date Initiated: 06/28/18 Time Initiated: 20:30 Treatment assets and liabiliti Patient Assests: ADL independent, negotiates basic needs, cognitively intact Patient Liabilities: poor support system, medical problems - Milieu Protocol Maintain good personal hygiene: daily Encourage regular showers, daily Remind patient to perform daily oral care, daily Assist patient to perform ADL's Conduct patient checks and document Observation sheet: 1:1 Maintain personal safety: every shift Educate patient to report safety concerns to staff, every shift Monitor environment for contraband/sharps Medication safety: Monitor for expected outcome, potential side effects: every shift, Assess barriers to learning: every shift, Assess readiness for medication education: every shift <Xiang Schuler - Last Filed: 06/30/18 21:38> Family Contact Family involvement: Famliy/SO not involved Family contact: Patient declines to allow family contact at present Family contact name: Pt denied. - Goals for Treatment Patient goals for treatment: Pt reported that she wanted help with housing and once racebook writer reported that we cannot help with housing directly pt reported that "then there is nothing you can do for me." Discharge/Continuing Care - Education Needs Education Needs: Patient Medication, Patient Diagnosis/Disease Process, Patient Coping Skills, Patient Community resources, Patient Aftercare Safety Plan - Discharge Discharge Criteria: Tolerates medication w/o severe side effects, Free of Suicidal thoughts, Free of agitation, Normal sleep pattern, Reduction of target symptoms Discharge to:: Jail - Treatment Team Participation Discussed with Family/SO: No <Hermila Paul - Last Filed: 07/01/18 10:05> - Diagnosis (1) Major depressive disorder Status: Acute Interventions: Medication management, Individual and group therapy, Psychoeducation 07/01/18 10:05 <Krista Roe - Last Filed: 07/01/18 15:51> Discharge/Continuing Care - Additional Comments 07/01/18 15:41 Pt seen and discussed in team meeting. Reason for hospitalization reviewed and discussed. Pt reported feeling "ok." Pt requested to further explain what she meant by "ok." Pt stated "I feel lousy, tired." Pt reported feeling anxious and depressed stating "I can't find my wallet." Nurse water resources project manager, Olga Roque present in team meeting and advised pt that she will be looking into the issue of her wallet missing. Pt assessed for SI/HI pt stated "I just don't want to live." Pt reported being homeless and "I just want a place to live." Pt informed that hospital does not have resources for housing. Pt irritable and easily agitated when advised that we do not have housing resources. Tx plan reviewed; pt agreeable. Pt's medications reviewed and discussed. SW to continue to follow case.
[2018-06-29 00:34] VITALS: O2SAT 97
[2018-06-29] MEDS: Fluticasone-Salmeterol 250-50mcg Diskus IH SCH ×2 (08:20→20:27)
[2018-06-29 08:25] LABS: HEMOGLOBIN 13.4 g/dL (12.0-16.0); MEAN CELL VOLUME 85.2 fl (81.0-99.0); MEAN CORPUSCULAR HEMOGLOBIN 29.4 pg (27.0-31.0); MEAN CORPUSCULAR HGB CONC 34.5 g/dL (33.0-37.0); RBC 4.55 Mil/uL (3.80-5.20); RED CELL DISTRIBUTION WIDTH 13.8 % (11.5-14.5); WHITE BLOOD COUNT 18.4 K/uL (4.8-10.8)
[2018-06-29] MEDS: acetaZOLAMIDE 500 mg SR Cap PO SCH (08:25)
[2018-06-29] MEDS: guaiFENesin-DM 600-30 mg ER Tab PO SCH ×2 (08:26→16:00)
[2018-06-29] MEDS: Pantoprazole 40 mg EC Tab PO SCH (08:30)
[2018-06-29] MEDS: Metoprolol Succinate 50 mg XL Tab PO SCH ×2 (08:31→16:00)
[2018-06-29 08:43] LABS: IRON 98 ug/dL (37-170)
[2018-06-29 08:57] LABS: % IRON SATURATION 28 % (20-55); TOTAL IRON BINDING CAPACITY 349 ug/dL (250-450)
[2018-06-29 09:03] LABS: T4 4.1 ug/dl (5.5-11.0)
[2018-06-29] MEDS: Albuterol-Ipratrop 3 mg / 0.5 (3 ml) UD INH SCH ×4 (09:10→19:00)
[2018-06-29 09:20] LABS: FERRITIN 33.5 ng/Ml (11.1-264.0)
--- NOTE | 2018-06-29 09:39 | PCM.PSYCH ---
Initial Psychiatric Evaluation - Initial Psychiatric Evaluation Chief Complaint (in patient's own words): i want to Patient's Reaction to Hospitalization: pt is depressed History of Present Illness and Precipitating Events: This is a 68 yr old female with h/o depression and suicidal thoughts admitted initially for suicidal ideation to [facility] and transfered to medical l floor and readmitted now after medical stabilization and still suicidal and want to .pt is currently on zoloft .pt reports her medical issues further aggravates depression and pt still feels hopeless and helpless with no energy and not sleeping well .pt still has suicidal thoughts but no plans and able to contract for safety. Current Medications: Active Medications Generic Name Dose Route Start Last Admin Trade Name Freq PRN Reason Stop Dose Admin Acetaminophen 650 mg 06/28/18 20:29 Tylenol 325mg Tab PO Q6 PRN Headache Acetaminophen 650 mg 06/29/18 04:24 Tylenol 325mg Tab PO Q4 PRN 4-7 pain Acetazolamide 500 mg 06/29/18 09:00 06/29/18 08:25 Diamox Sequels 500 Mg Sr Cap PO 500 mg DAILY SHANTEL Administration Al Hydrox/Mg Hydrox/Simethicone 30 ml 06/28/18 20:44 Maalox Plus 30 Ml PO Q4 PRN Dyspepsia Albuterol 2 puff 06/28/18 20:29 Ventolin Hfa 90 Mcg/Actuation (8 G) IH Q6H PRN Shortness of Breath Albuterol/Ipratropium 3 ml 06/29/18 08:00 06/29/18 09:10 Duoneb 3 Mg/0.5 Mg (3 Ml) Ud INH 3 ml RQID SHANTEL Administration Amlodipine Besylate 10 mg 06/29/18 09:00 06/29/18 08:28 Norvasc PO 10 mg DAILY SHANTEL Administration Aspirin 81 mg 06/29/18 09:00 06/29/18 08:22 Aspirin Chewable PO 81 mg DAILY SHANTEL Administration Azithromycin 500 mg 06/29/18 09:00 06/29/18 08:33 Zithromax PO 500 mg DAILY SHANTEL Administration Protocol Bismuth Subsalicylate 524 mg 06/28/18 20:44 Pepto-Bismol PO Q4 PRN Diarrhea Clonazepam 0.5 mg 06/28/18 20:44 Klonopin PO Q12 PRN Anxiety Famotidine 40 mg 06/29/18 09:00 06/29/18 08:29 Pepcid PO 40 mg DAILY SHANTEL Administration Gabapentin 300 mg 06/29/18 01:00 06/29/18 08:26 Neurontin PO 300 mg Q8 SHANTEL Administration Guaifenesin/Dextromethorphan 1 tab 06/29/18 09:00 06/29/18 08:26 Mucinex-Dm 600-30 Mg PO 1 tab BID SHANTEL Administration Lorazepam 0.5 mg 06/28/18 20:44 06/28/18 23:28 Ativan PO 07/12/18 20:45 0.5 mg HS PRN Administration Insomnia Losartan Potassium 100 mg 06/29/18 09:00 06/29/18 08:23 Cozaar PO 100 mg DAILY SHANTEL Administration Magnesium Hydroxide 30 ml 06/28/18 20:44 Milk Of Magnesia PO HS PRN Constipation Metoprolol Succinate 50 mg 06/29/18 09:00 06/29/18 08:31 Toprol Xl PO 50 mg BID SHANTEL Administration Nicotine 1 patch 06/29/18 09:00 06/29/18 08:27 Nicoderm Cq TD 1 patch DAILY SHANTEL Administration Pantoprazole Sodium 40 mg 06/29/18 09:00 06/29/18 08:30 Protonix Ec Tab PO 40 mg DAILY SHANTEL Administration Prednisone 30 mg 06/28/18 21:00 06/29/18 08:30 Prednisone Tab PO 30 mg Q12 SHANTEL Administration Fluticasone/Salmeterol 1 puff 06/28/18 21:00 06/29/18 08:20 Advair Diskus 250/50 IH 1 puff Q12 SHANTEL Administration Sertraline HCl 50 mg 06/29/18 09:00 06/29/18 08:34 Zoloft PO 50 mg DAILY SHANTEL Administration Past Psychiatric History - Past Psychiatric History At [facility] [place] [facility]: 3NS for depression. Nature of Treatment: meds and therapy. History of Abuse: pt denies History of ETOH/Drug Use: not reported. History of Family Illness: not reported. Pertinent Medical Hx (Current Medical&Sleep Prob, Allergies): Allergies Allergy/AdvReac Type Severity Reaction Status Date / Time No Known Allergies Allergy Verified 06/22/18 17:22 Albuterol HFA [Ventolin HFA 90 mcg/actuation (8 g)] 2 puff IH [id number] PRN 09/26/17 Gabapentin 300 mg PO Q8 09/26/17 Oxybutynin Chloride [Oxybutynin Chloride ER] 15 mg PO Q12H 09/26/17 Valsartan [Diovan] 80 mg PO DAILY 09/26/17 Baclofen [Lioresal] 10 mg PO Q8H 01/21/18 Cholecalciferol [Vitamin D 1000 IU] 1,000 unit PO DAILY 01/21/18 LORazepam [Ativan] 0.5 mg PO DAILY 01/21/18 Metoprolol Succinate XL [Toprol XL] 50 mg PO BID #10 tab 01/21/18 Shiloh-3 Fatty Acids/Fish Oil [Fish Oil 1,000 mg Capsule] 1 cap PO DAILY 01/21/18 Sertraline [Zoloft] 50 mg PO DAILY 01/21/18 clonazePAM [Klonopin] 0.5 mg PO Q12 PRN 01/21/18 oxyCODONE [oxyCODONE Immediate Release Tab] 10 mg PO Q6 PRN 01/21/18 Fluticasone/Salmeterol 250/50 [Advair Diskus 250/50] 1 puff IH Q12 puff 06/24/18 Nicotine 21 mg/24 hr [Nicoderm Cq] 21 mg TD DAILY 1 Days patch 06/24/18 Pantoprazole [Protonix EC Tab] 40 mg PO DAILY ect 06/24/18 Acetaminophen [Tylenol 325mg tab] 650 mg PO Q6 PRN tab 06/28/18 Albuterol/Ipratropium [Duoneb 3 mg/0.5 mg (3 ml) UD] 3 ml INH RQID neb 06/28/18 Aspirin [Aspirin Chewable] 81 mg PO DAILY chew 06/28/18 Azithromycin [Zithromax] 500 mg PO DAILY tab 06/28/18 Famotidine [Pepcid] 40 mg PO DAILY tab 06/28/18 Sodium Chloride for Inhalation [Sodium Chloride 3% for Inhalation] 4 ml IH ONCE PRN vial.neb 06/28/18 acetaZOLAMIDE [Diamox Sequels] 500 mg PO DAILY #20 cer 06/28/18 amLODIPine [Norvasc] 10 mg PO DAILY tab 06/28/18 guaiFENesin/Dextromethorphan [Mucinex-DM 600-30 mg] 1 tab PO BID tab 06/28/18 predniSONE [Prednisone] 30 mg PO Q12 #20 tab 06/28/18 Review of Systems - Review of Systems All systems: reviewed and no additional remarkable complaints except Mental Status Examination - Personal Presentation Personal Presentation: Looks stated age - Affect Affect: Constricted - Motor Activity Motor Activity: Other - Reliability in Providing Information Reliability in Providing Information: Fair - Speech Speech: Relevant - Mood Mood: Depressed, Anxious - Formal Thought Process Formal Thought Process: Paranoia - Obsessions/Compulsions Obsessions: No - Cognitive Functions Orientation: Person, Place, Situation Sensorium: Alert Attention/Concentration: Easily distracted Abstract Thinking: As evidence by abstract perception of proverbs Estimate of Intelligence: Average Judgement: Imparied, as evidence by: Poor judgement Memory: Recent intact, as evidence by: Ability to recall events of the day, Remote impaired as evidenced by: Inability to recall historical events - Risk Risk: Suicidal, Diminished functioning - Strength & Assets Inventory Strength & Assets Inventory: Family support DSM 5 DX - DSM 5 DSM 5 Diagnosis: major depression,severe without psychotic features - Recommended/Plan of Treatment Treatment Recommendations and Plan of Treatment: Will continue to engage pt in therapy and groups and increase zoloft to 75 mg daily and titrate further to stabilize the depression . hospitalist consult to address medical concerns .
--- NOTE | 2018-06-29 14:15 | CP.PCM.CON ---
History of Present Illness - History of Present Illness History of Present Illness: medical clearance for psychiatric patient cc: feel lousy no sob HPI: 68 yo female has history of COPD, HTN, Depression and Gastritis and was admitted because of SOB and wheezing of 2 days duration and suicidal ideation. She was stable on medical floor and transferred to psych. PMH: copd hypertension depression FH: none relevant PSH: none SH: no drugs current smoker 1ppd social drinking Meds: reviewed Allergies: nkda Review of Systems - Review of Systems All systems: reviewed and no additional remarkable complaints except Review of Systems: in hpi Past Patient History - Infectious Disease Hx of Infectious Diseases: None - Tetanus Immunizations Tetanus Immunization: Unknown - Past Medical History & Family History Past Medical History?: Yes - Past Social History Smoking Status: Heavy Smoker > 10 Cigarettes Daily - CARDIAC Hx Cardiac Disorders: Yes Hx Hypertension: Yes - PULMONARY Hx Respiratory Disorders: Yes Hx Asthma: Yes Hx Chronic Obstructive Pulmonary Disease (COPD): Yes Hx Emphysema: Yes Hx Pneumonia: Yes (CHILDHOOD) - NEUROLOGICAL Hx Neurological Disorder: No - HEENT Hx HEENT Problems: No - RENAL Hx Chronic Kidney Disease: No - ENDOCRINE/METABOLIC Hx Endocrine Disorders: No - HEMATOLOGICAL/ONCOLOGICAL Hx Blood Disorders: No Hx Human Immunodeficiency Virus (HIV): No - INTEGUMENTARY Hx Dermatological Problems: No - MUSCULOSKELETAL/RHEUMATOLOGICAL Hx Musculoskeletal Disorders: Yes Hx Arthritis: Yes Hx Falls: No - GASTROINTESTINAL Hx Gastrointestinal Disorders: Yes Hx Gastritis: Yes - GENITOURINARY/GYNECOLOGICAL Hx Genitourinary Disorders: Yes Other/Comment: FREGUENT URINATION - PSYCHIATRIC Hx Psychophysiologic Disorder: Yes Hx Anxiety: Yes Hx Depression: Yes Hx Substance Use: No - SURGICAL HISTORY Hx Surgeries: Yes Hx Herniorrhaphy: Yes Hx Orthopedic Surgery: Yes (left knee replacement) Hx Vascular Access Device: Yes Other/Comment: TURBT - ANESTHESIA Hx Anesthesia: Yes Hx Anesthesia Reactions: No Hx Malignant Hyperthermia: No Meds Allergies/Adverse Reactions: Allergies Allergy/AdvReac Type Severity Reaction Status Date / Time No Known Allergies Allergy Verified 06/22/18 17:22 - Medications Medications: Current Medications Acetaminophen (Tylenol 325mg Tab) 650 mg PO Q6 PRN PRN Reason: Headache Acetaminophen (Tylenol 325mg Tab) 650 mg PO Q4 PRN PRN Reason: 4-7 pain Acetazolamide (Diamox Sequels 500 Mg Sr Cap) 500 mg PO DAILY SHANTEL Last Admin: 06/29/18 08:25 Dose: 500 mg Al Hydrox/Mg Hydrox/Simethicone (Maalox Plus 30 Ml) 30 ml PO Q4 PRN PRN Reason: Dyspepsia Albuterol (Ventolin Hfa 90 Mcg/Actuation (8 G)) 2 puff IH Q6H PRN PRN Reason: Shortness of Breath Albuterol/Ipratropium (Duoneb 3 Mg/0.5 Mg (3 Ml) Ud) 3 ml INH RQID [facility] Last Admin: 06/29/18 12:05 Dose: Not Given Amlodipine Besylate (Norvasc) 10 mg PO DAILY [facility] Last Admin: 06/29/18 08:28 Dose: 10 mg Aspirin (Aspirin Chewable) 81 mg PO DAILY [facility] Last Admin: 06/29/18 08:22 Dose: 81 mg Azithromycin (Zithromax) 500 mg PO DAILY [facility]; Protocol Last Admin: 06/29/18 08:33 Dose: 500 mg Bismuth Subsalicylate (Pepto-Bismol) 524 mg PO Q4 PRN PRN Reason: Diarrhea Clonazepam (Klonopin) 0.5 mg PO Q12 PRN PRN Reason: Anxiety Famotidine (Pepcid) 40 mg PO DAILY [facility] Last Admin: 06/29/18 08:29 Dose: 40 mg Gabapentin (Neurontin) 300 mg PO Q8 [facility] Last Admin: 06/29/18 08:26 Dose: 300 mg Guaifenesin/Dextromethorphan (Mucinex-Dm 600-30 Mg) 1 tab PO BID [facility] Last Admin: 06/29/18 08:26 Dose: 1 tab Lorazepam (Ativan) 0.5 mg PO HS PRN PRN Reason: Insomnia Stop: 07/12/18 20:45 Last Admin: 06/28/18 23:28 Dose: 0.5 mg Lorazepam (Ativan) 1 mg IM Q6 PRN PRN Reason: Agitation Losartan Potassium (Cozaar) 100 mg PO DAILY [facility] Last Admin: 06/29/18 08:23 Dose: 100 mg Magnesium Hydroxide (Milk Of Magnesia) 30 ml PO HS PRN PRN Reason: Constipation Metoprolol Succinate (Toprol Xl) 50 mg PO BID [facility] Last Admin: 06/29/18 08:31 Dose: 50 mg Nicotine (Nicoderm Cq) 1 patch TD DAILY [facility] Last Admin: 06/29/18 08:27 Dose: 1 patch Pantoprazole Sodium (Protonix Ec Tab) 40 mg PO DAILY [facility] Last Admin: 06/29/18 08:30 Dose: 40 mg Prednisone (Prednisone Tab) 30 mg PO Q12 [facility] Last Admin: 06/29/18 08:30 Dose: 30 mg Fluticasone/Salmeterol (Advair Diskus 250/50) 1 puff IH Q12 [facility] Last Admin: 06/29/18 08:20 Dose: 1 puff Sertraline HCl (Zoloft) 50 mg PO DAILY [facility] Last Admin: 06/29/18 08:34 Dose: 50 mg Physical Exam - Constitutional Appears: Well, No Acute Distress - Head Exam Head Exam: ATRAUMATIC, NORMAL INSPECTION, NORMOCEPHALIC - Eye Exam Eye Exam: Normal appearance - ENT Exam ENT Exam: Mucous Membranes Moist - Respiratory Exam Respiratory Exam: Wheezes, NORMAL BREATHING PATTERN. absent: Accessory Muscle Use, Clear to Auscultation Bilateral - Cardiovascular Exam Cardiovascular Exam: REGULAR RHYTHM, +S1, +S2 - GI/Abdominal Exam GI & Abdominal Exam: Normal Bowel Sounds, Soft - Extremities Exam Extremities exam: Positive for: normal inspection - Neurological Exam Neurological exam: Alert, Oriented x3 - Psychiatric Exam Psychiatric exam: Depressed - Skin Skin Exam: Normal Color Results - Vital Signs Recent Vital Signs: Last Vital Signs Temp 97.9 F 06/29/18 06:00 Pulse 77 06/29/18 08:31 Resp 18 06/29/18 06:00 BP 152/77 H 06/29/18 08:31 Pulse Ox 97 06/28/18 20:30 - Labs Result Diagrams: 06/29/18 07:25 Labs: Laboratory Results - last 24 hr 06/29/18 06/29/18 06/29/18 07:25 07:25 07:25 WBC 18.4 H RBC 4.55 Hgb 13.4 Hct 38.8 MCV 85.2 MCH 29.4 MCHC 34.5 RDW 13.8 Plt Count 249 Iron 98 TIBC 349 % Saturation 28 Ferritin 33.5 Triglycerides 56 Cholesterol 183 LDL Cholesterol Direct 85 HDL Cholesterol 84 H Vitamin B12 474 Free T4 Thyroxine (T4) 4.10 L TSH 3rd Generation 1.12 06/29/18 07:25 WBC RBC Hgb Hct MCV MCH MCHC RDW Plt Count Iron TIBC % Saturation Ferritin Triglycerides Cholesterol LDL Cholesterol Direct HDL Cholesterol Vitamin B12 Free T4 0.61 L Thyroxine (T4) TSH 3rd Generation Assessment & Plan - Assessment and Plan (Free Text) Assessment: 68 y/o woman / pmh of COPD, HTN, and psych disorder admitted to psychiatry for suicidal ideation and depression also has acute COPD exacerbation. COPD exacerbation Still wheezing cont azithromax nebs prednisone 30mg q 12 will taper and continue to follow clinically HTN Chronic Depression continue management per psych
[2018-06-29] MEDS: Albuterol HFA 90 mcg/actuation (8 g) IH PRN ×2 (15:59→22:13)
[2018-06-30] MEDS: Fluticasone-Salmeterol 250-50mcg Diskus IH SCH ×2 (08:00→21:20)
[2018-06-30] MEDS: Albuterol-Ipratrop 3 mg / 0.5 (3 ml) UD INH SCH ×3 (08:30→15:46)
[2018-06-30] MEDS: Metoprolol Succinate 50 mg XL Tab PO SCH ×2 (08:41→17:22)
[2018-06-30] MEDS: acetaZOLAMIDE 500 mg SR Cap PO SCH (08:42)
[2018-06-30] MEDS: guaiFENesin-DM 600-30 mg ER Tab PO SCH ×2 (08:44→17:21)
[2018-06-30] MEDS: Pantoprazole 40 mg EC Tab PO SCH (08:47)
--- NOTE | 2018-06-30 14:30 | PCM.PYCHPN ---
Psychiatric Progress Note - Psychiatric Progress Note Patient seen today, length of contact: pt is seen abd evaluated. Patient Chief Complaint: pt is still very depresssed and still suicidal and wants to end her life and is maintained on 1:1 observation.pt has remained withbpoor insight and poor judgement and need further stabilization.. Medication Change: Yes (increase zoloft) Medical Record Reviewed: Yes Mental Status Examination - Cognitive Function Memory: Intact Attention: Poor Concentration: Poor Association: WNL Fund of Knowledge: WNL - Mood Mood: Depressed, Anxious - Speech Speech: Appropriate - Suicidal Ideation Suicidal Ideation: Yes - Homicidal Ideation Homicidal Ideation: No Goal/Treatment Plan - Goal/Treatment Plan Progress Toward Problem(s) and Goals/Treatment Plan: will increase zoloft to 75 mg daily and engage pt in therapy and groups continue 1:1 observation. Disposition as per the treatment team.
[2018-07-01] MEDS: Albuterol HFA 90 mcg/actuation (8 g) IH PRN (06:21)
[2018-07-01] MEDS: Albuterol-Ipratrop 3 mg / 0.5 (3 ml) UD INH SCH ×4 (08:21→20:22)
[2018-07-01] MEDS: Fluticasone-Salmeterol 250-50mcg Diskus IH SCH ×2 (08:21→21:02)
[2018-07-01] MEDS: acetaZOLAMIDE 500 mg SR Cap PO SCH (08:23)
[2018-07-01] MEDS: guaiFENesin-DM 600-30 mg ER Tab PO SCH ×2 (08:23→17:04)
[2018-07-01] MEDS: Pantoprazole 40 mg EC Tab PO SCH (08:26)
[2018-07-01] MEDS: Metoprolol Succinate 50 mg XL Tab PO SCH ×2 (08:26→17:06)
--- NOTE | 2018-07-01 11:13 | PCM.PYCHPN ---
Psychiatric Progress Note - Psychiatric Progress Note Patient seen today, length of contact: Pt evaluated, case discussed w/ team, chart reviewed Patient Chief Complaint: "I feel lousy." Problems Identified/Issues Discussed: Patient reports that she continues to feel depressed and anxious, but denies active suicidal ideation/plan/intent and can contract for safety. She continues to report sleep disturbances, but has a good appetite. Patient is focused on housing. No AH/VH/paranoia/delusions. Medication Change: No Medical Record Reviewed: Yes Consults ordered or reviewed: Medicine consult Mental Status Examination - Cognitive Function Orientation: Person, Place, Situation, Time Memory: Intact Attention: WNL Concentration: WNL Association: WNL Fund of Knowledge: WN Decription of patient's judgement and insights: Improving I/J - Mood Mood: Depressed, Anxious - Affect Affect: Constricted - Speech Speech: Appropriate - Formal Thought Process Formal Thought Process: No Impairment Psychotic Thoughts and Behaviors: NO AH/VH/paranoia/delusions - Suicidal Ideation Suicidal Ideation: No - Homicidal Ideation Homicidal Ideation: No Goal/Treatment Plan - Goal/Treatment Plan Need for Continued Stay: Remain at risks for inpatient hospitalization, Severe depression anxiety Progress Toward Problem(s) and Goals/Treatment Plan: Major Depressive Disorder -Continue Zoloft -Medicine consult -Individual and group therapy -Psychoeducation -Discontinue 1:1 Estimated Date of D/C: 07/04/18 - Smoking Cessation Smoking Cessation Initiated: Yes
[2018-07-01 12:48] LABS: FOLATE 6.5 ng/mL
[2018-07-02] MEDS: Albuterol-Ipratrop 3 mg / 0.5 (3 ml) UD INH SCH ×4 (07:29→19:23)
[2018-07-02] MEDS: Fluticasone-Salmeterol 250-50mcg Diskus IH SCH ×2 (08:32→21:14)
[2018-07-02] MEDS: acetaZOLAMIDE 500 mg SR Cap PO SCH (08:35)
[2018-07-02] MEDS: guaiFENesin-DM 600-30 mg ER Tab PO SCH ×2 (08:36→16:37)
[2018-07-02] MEDS: Pantoprazole 40 mg EC Tab PO SCH (08:39)
[2018-07-02] MEDS: Metoprolol Succinate 50 mg XL Tab PO SCH ×2 (08:40→16:36)
--- NOTE | 2018-07-02 09:29 | PCM.PYCHPN ---
Psychiatric Progress Note - Psychiatric Progress Note Patient seen today, length of contact: Pt evaluated, case discussed w/ team, chart reviewed Patient Chief Complaint: "I feel lousy." Problems Identified/Issues Discussed: Patient continues to report feeling depressed, anxious, hopeless w/ poor sleep. She spends most of her day in bed and needs encouragement from staff to get out of bed and engage in the community. She continues to discuss her social stressors and lack of hope that they will improve. She denies acute AH/VH/SI/HI and is able to contract for safety at this time. No adverse effects to medications reported. Medication Change: Yes (Increase Zoloft) Medical Record Reviewed: Yes Consults ordered or reviewed: Medicine consult Mental Status Examination - Cognitive Function Orientation: Person, Place, Situation, Time Memory: Intact Attention: WNL Concentration: WNL Association: WNL Fund of Knowledge: WNL Decription of patient's judgement and insights: Improving I/J - Mood Mood: Depressed, Anxious - Affect Affect: Constricted - Speech Speech: Appropriate - Formal Thought Process Formal Thought Process: No Impairment Psychotic Thoughts and Behaviors: NO AH/VH/paranoia/delusions - Suicidal Ideation Suicidal Ideation: No - Homicidal Ideation Homicidal Ideation: No Goal/Treatment Plan - Goal/Treatment Plan Need for Continued Stay: Remain at risks for inpatient hospitalization, Severe depression anxiety Progress Toward Problem(s) and Goals/Treatment Plan: Major Depressive Disorder -Increase Zoloft to 100 mg PO Daily -Medicine consult -Individual and group therapy -Psychoeducation -Disposition planning Estimated Date of D/C: 07/04/18
[2018-07-03] MEDS: Fluticasone-Salmeterol 250-50mcg Diskus IH SCH ×2 (08:43→21:15)
[2018-07-03] MEDS: guaiFENesin-DM 600-30 mg ER Tab PO SCH ×2 (08:44→17:51)
[2018-07-03] MEDS: Pantoprazole 40 mg EC Tab PO SCH (08:45)
[2018-07-03] MEDS: Metoprolol Succinate 50 mg XL Tab PO SCH ×2 (08:46→17:51)
[2018-07-03] MEDS: acetaZOLAMIDE 500 mg SR Cap PO SCH (08:49)
[2018-07-03] MEDS: Albuterol-Ipratrop 3 mg / 0.5 (3 ml) UD INH SCH ×4 (09:09→20:18)
--- NOTE | 2018-07-03 09:44 | PCM.PYCHPN ---
Psychiatric Progress Note - Psychiatric Progress Note Patient seen today, length of contact: Pt evaluated, case discussed w/ team, chart reviewed Patient Chief Complaint: "I'm feeling better." Problems Identified/Issues Discussed: Patient reports that her mood is improving. She is out of bed more, more goal oriented and more hopeful. NO AH/VH/SI/HI. No adverse effects to medications reported. Medication Change: No Medical Record Reviewed: Yes Consults ordered or reviewed: Medicine consult Mental Status Examination - Cognitive Function Orientation: Person, Place, Situation, Time Memory: Intact Attention: WNL Concentration: WNL Association: WNL Fund of Knowledge: [facility] Decription of patient's judgement and insights: Improving I/J - Mood Mood: Depressed - Affect Affect: Broad - Speech Speech: Appropriate - Formal Thought Process Formal Thought Process: No Impairment Psychotic Thoughts and Behaviors: NO AH/VH/paranoia/delusions - Suicidal Ideation Suicidal Ideation: No - Homicidal Ideation Homicidal Ideation: No Goal/Treatment Plan - Goal/Treatment Plan Need for Continued Stay: Severe depression anxiety Progress Toward Problem(s) and Goals/Treatment Plan: Major Depressive Disorder -Continue Zoloft 100 mg PO Daily -Medicine consult -Individual and group therapy -Psychoeducation -Disposition planning- likely discharge tomorrow as patient is improving clinically Estimated Date of D/C: 07/04/18 - Smoking Cessation Smoking Cessation Initiated: Yes
[2018-07-04] MEDS: Albuterol HFA 90 mcg/actuation (8 g) IH PRN (02:54)
[2018-07-04 05:47] VITALS: RESP 20; TEMP 97.7
[2018-07-04] MEDS: Albuterol-Ipratrop 3 mg / 0.5 (3 ml) UD INH SCH ×2 (07:03→11:07)
[2018-07-04] MEDS: Fluticasone-Salmeterol 250-50mcg Diskus IH SCH (08:12)
[2018-07-04] MEDS: acetaZOLAMIDE 500 mg SR Cap PO SCH (08:14)
[2018-07-04] MEDS: guaiFENesin-DM 600-30 mg ER Tab PO SCH (08:15)
[2018-07-04] MEDS: Pantoprazole 40 mg EC Tab PO SCH (08:18)
[2018-07-04] MEDS: Metoprolol Succinate 50 mg XL Tab PO SCH (08:19)
[2018-07-04 08:21] VITALS: BP 131/70; PULSE 60
--- NOTE | 2018-07-04 08:43 | PCM.PYCHDC ---
Mental Status Examination - Mental Status Examination Orientation: Person, Place, Situation, Time Memory: Intact Mood: Neutral Affect: Broad Speech: Appropriate Attention: WNL Concentration: WNL Association: WNL Fund of Knowledge: WNL Formal Thought Process: No Impairment Description of patient's judgement and insight: Fair I/J Psychotic Thoughts and Behaviors: NO AH/VH/paranoia/delusions Suicidal Ideation: No Current Homicidal Ideation?: No Discharge Summary - Discharge Note Reason for Hospitalization: 68 yo female admitted with worsening depression and suicidal ideation. Psychiatric History (includes Medical, Family, Personal Hx): meds and therapy. Consultations:: List each consultation separately and include: 1. Reason for request. 2. Findings. 3. Follow-up Consultations: Medicine consult Summary of Hospital Course include:: 1. Description of specific treatment plan utilized for patients during their course of treatmen. 2. Summarize the time- course for resolution of acute symptoms and/or regressed behaviors. 3. Describe issues identified and worked on during hospitalization. 4. Describe medication utilized. 5. Describe medical problems identified and treated. 6. Reassessment of suicide risk Summary of Hospital Course: Patient was admitted to the psychiatry unit. Individual and group therapy were provided. Psychoeducation provided on the importance of compliance with treatment and medications. During the admission, patient was primarily focused on the staff providing housing for her and meeting her demands, like letting her choose whats on TV in the community room, giving her cake at every meal, etc. She was manipulative and often engaged in an inappropriate and disrespectful manner towards other patients and staff. Patient seems to have a significant personality disorder and makes suicidal comments to manipulate others and prolong her inpatient hospitalization. At this time, patient denies acute depression/anxiety/AH/VH/SI/HI. She has not made any suicidal comments or threats. She is psychiatrically stable for discharge. - Diagnosis (1) Major depressive disorder Current Visit: Yes Status: Acute (2) Personality disorder Current Visit: Yes Status: Chronic - Final Diagnosis (DSM 5) Condition upon Discharge: STABLE DSM 5: Major Depressive Disorder; Personality Disorder NOS Disposition: HOME/ ROUTINE Follow-up Treatment Plan: Major Depressive Disorder; Personality Disorder NOS -Continue Zoloft 100 mg PO Daily -Medicine consult -Individual and group therapy -Psychoeducation Prescriptions/Medication Reconciliation: Albuterol HFA [Ventolin HFA 90 mcg/actuation (8 g)] 2 puff IH [id number] PRN #1 inhaler PRN Reason: Shortness Of Breath acetaZOLAMIDE [Diamox Sequels 500 mg SR Cap] 500 mg PO DAILY #30 cer amLODIPine [Norvasc] 10 mg PO DAILY #30 tab Aspirin [Aspirin Chewable] 81 mg PO DAILY #30 chew clonazePAM [Klonopin] 0.5 mg PO DAILY PRN #30 tab PRN Reason: Anxiety Famotidine [Pepcid] 40 mg PO DAILY #60 tab Fluticasone/Salmeterol 250/50 [Advair Diskus 250/50] 1 puff IH Q12 #1 puff Gabapentin [Neurontin] 300 mg PO 0500,1300,2100 #90 cap guaiFENesin/Dextromethorphan [Mucinex-DM 600-30 mg] 1 tab PO BID PRN #60 tab PRN Reason: Cough And Congestion Losartan [Cozaar] 100 mg PO DAILY #30 tab Methylprednisolone [Medrol Dose Pack (21 tabs)] 4 mg PO ASDIR #21 mg Metoprolol Succinate XL [Toprol XL] 50 mg PO BID #60 tab Nicotine 21 mg/24 hr [Nicoderm Cq] 21 mg TD DAILY 30 Days patch Pantoprazole [Protonix EC Tab] 40 mg PO DAILY #30 ect Sertraline [Zoloft] 100 mg PO DAILY #30 tab Valsartan [Diovan] 80 mg PO DAILY #30 tab - Smoking Cessation Smoking Cessation Medication prescribed: Yes - Antipsychotic Medications Pt discharged on 2 or more routine antipsychotic medications: No
== END 2018-07-04 12:00 | disposition home or self-care (01) | DRG 885 ==
LOC: H.ERHOLD 18:40 → H.STEP 18:55
PROVIDERS: ADMIT Psychiatry & Neurology Psychiatry; ATTEND Psychiatry & Neurology Psychiatry
PROC: GZHZZZZ Group Psychotherapy (ICD-10-PCS; principal; 2018-06-28)
PROC: GZ58ZZZ Individual Psychotherapy, Cognitive-Behavioral (ICD-10-PCS; 2018-06-28)
DX: F32.2 Major depressive disorder, single episode, severe without psychotic features (principal); R45.851 Suicidal ideations; J44.1 Chronic obstructive pulmonary disease with (acute) exacerbation; F41.9 Anxiety disorder, unspecified; F60.9 Personality disorder, unspecified; I10 Essential (primary) hypertension; K29.70 Gastritis, unspecified, without bleeding; M19.90 Unspecified osteoarthritis, unspecified site; F17.210 Nicotine dependence, cigarettes, uncomplicated; Z96.652 Presence of left artificial knee joint; Z87.01 Personal history of pneumonia (recurrent); Z79.899 Other long term (current) drug therapy; Z59.0 Homelessness

== ENCOUNTER 2018-07-04 18:40 | Emergency (ER) | payer MEDICARE ==
[2018-07-04 18:40] VITALS: BMI 21.9
[2018-07-04 18:49] VITALS: TEMP 98.3
[2018-07-05 00:38] LABS: BASO % 0.2 % (0.0-2.0); EOS # 0.1 K/uL (0.0-0.7); EOS % 0.4 % (0.0-4.0); HEMOGLOBIN 14.6 g/dL (12.0-16.0); LYMPH # 2.4 K/uL (1.0-4.3); LYMPH % 10.7 % (20.0-40.0); MEAN CORPUSCULAR HEMOGLOBIN 29.6 pg (27.0-31.0); MEAN CORPUSCULAR HGB CONC 34.4 g/dL (33.0-37.0); MEAN PLATELET VOLUME 6.5 fl (7.2-11.7); MONO # 1.8 K/uL (0.0-0.8); MONO % 7.9 % (0.0-10.0); NEUT % 80.8 % (50.0-75.0); RBC 4.95 Mil/uL (3.80-5.20); RED CELL DISTRIBUTION WIDTH 14.5 % (11.5-14.5); WHITE BLOOD COUNT 22.3 K/uL (4.8-10.8)
[2018-07-05 00:50] LABS: BLOOD UREA NITROGEN 29 mg/dl (7-17); CALCIUM 8.5 mg/dL (8.4-10.2); GFR NON-AFRICAN AMERICAN > 60
--- NOTE | 2018-07-05 03:31 | ED PDOC ---
HPI: General Adult Time Seen by Provider: 07/04/18 23:13 Chief Complaint (Nursing): Chest Pain Chief Complaint (Provider): chest pressure History Per: Patient History/Exam Limitations: no limitations Onset/Duration Of Symptoms: Hrs (today) Additional Complaint(s): Mariya Dozier is a 68 year old female, with a past medical history of COPD, who was brought to the emergency department by EMS after [facility]. She verbalized she was made to put out her cigarette. Jailene aguilera is well known to ED staff and provider for multiple visits. She reports some chest pressure but denies any other medical complaints. PMD: None provided. Past Medical History Reviewed: Historical Data, Nursing Documentation, Vital Signs Vital Signs: Last Vital Signs Temp 98.3 F 07/04/18 18:44 Pulse 88 07/05/18 00:40 Resp 20 07/04/18 18:44 BP 143/62 07/04/18 18:44 Pulse Ox 96 07/04/18 18:44 - Medical History PMH: Anxiety, Arthritis, Asthma, Back Problems (herniated disc), Colonic Polyps, COPD, Depression, Emphysema, Fibromyalgia, Gastritis, HTN, Malignancy (bladder CA), Peripheral Edema, Pneumonia (CHILDHOOD) Denies: HIV, Chronic Kidney Disease - Surgical History Surgical History: Endoscopy - Family History Family History: States: Unknown Family Hx - Immunization History Hx Tetanus Toxoid Vaccination: No Hx Influenza Vaccination: Yes (06/2015) Hx Pneumococcal Vaccination: No - Home Medications Home Medications: Ambulatory Orders Medication Instructions Recorded Gabapentin 300 mg PO Q8 09/26/17 Oxybutynin Chloride [Oxybutynin 15 mg PO Q12H 09/26/17 Chloride ER] Baclofen [Lioresal] 10 mg PO Q8H 01/21/18 Cholecalciferol [Vitamin D 1000 IU] 1,000 unit PO DAILY 01/21/18 LORazepam [Ativan] 0.5 mg PO DAILY 01/21/18 [place]-3 Fatty Acids/Fish Oil [Fish 1 cap PO DAILY 01/21/18 Oil 1,000 mg Capsule] Sertraline [Zoloft] 50 mg PO DAILY 01/21/18 clonazePAM [Klonopin] 0.5 mg PO Q12 PRN 01/21/18 oxyCODONE [oxyCODONE Immediate 10 mg PO Q6 PRN 01/21/18 Release Tab] Albuterol/Ipratropium [Duoneb 3 3 ml INH RQID neb 06/28/18 mg/0.5 mg (3 ml) UD] Sodium Chloride for Inhalation 4 ml IH ONCE PRN vial.neb 06/28/18 [Sodium Chloride 3% for Inhalation] predniSONE [predniSONE Tab] 30 mg PO Q12 #20 tab 06/28/18 Albuterol HFA [Ventolin HFA 90 2 puff IH [id number] PRN #1 inhaler 07/03/18 mcg/actuation (8 g)] Aspirin [Aspirin Chewable] 81 mg PO DAILY #30 chew 07/03/18 Famotidine [Pepcid] 40 mg PO DAILY #60 tab 07/03/18 Fluticasone/Salmeterol 250/50 1 puff IH Q12 #1 puff 07/03/18 [Advair Diskus 250/50] Gabapentin [Neurontin] 300 mg PO 0500,1300,2100 #90 cap 07/03/18 Losartan [Cozaar] 100 mg PO DAILY #30 tab 07/03/18 Methylprednisolone [Medrol Dose 4 mg PO ASDIR #21 mg 07/03/18 Pack (21 tabs)] Metoprolol Succinate XL [Toprol XL] 50 mg PO BID #60 tab 07/03/18 Nicotine 21 mg/24 hr [Nicoderm Cq] 21 mg TD DAILY 30 Days patch 07/03/18 Pantoprazole [Protonix EC Tab] 40 mg PO DAILY #30 ect 07/03/18 Sertraline [Zoloft] 100 mg PO DAILY #30 tab 07/03/18 Valsartan [Diovan] 80 mg PO DAILY #30 tab 07/03/18 acetaZOLAMIDE [Diamox Sequels 500 500 mg PO DAILY #30 cer 07/03/18 mg SR Cap] amLODIPine [Norvasc] 10 mg PO DAILY #30 tab 07/03/18 clonazePAM [Klonopin] 0.5 mg PO DAILY PRN #30 tab 07/03/18 guaiFENesin/Dextromethorphan 1 tab PO BID PRN #60 tab 07/03/18 [Mucinex-DM 600-30 mg] - Allergies Allergies/Adverse Reactions: Allergies Allergy/AdvReac Type Severity Reaction Status Date / Time No Known Allergies Allergy Verified 06/22/18 17:22 Review of Systems ROS Statement: Except As Marked, All Systems Reviewed And Found Negative Respiratory: Positive for: Other (chest pressure) Physical Exam - Reviewed Nursing Documentation Reviewed: Yes Vital Signs Reviewed: Yes - Physical Exam Appears: Positive for: No Acute Distress Head Exam: Positive for: ATRAUMATIC, NORMAL INSPECTION, NORMOCEPHALIC Skin: Positive for: Normal Color, Warm, Dry Eye Exam: Positive for: Normal appearance, EOMI, PERRL Neck: Positive for: Painless ROM Cardiovascular/Chest: Positive for: Regular Rate, Rhythm. Negative for: Murmur Respiratory: Positive for: Normal Breath Sounds. Negative for: Respiratory Distress Gastrointestinal/Abdominal: Positive for: Normal Exam, Soft. Negative for: Tenderness Back: Positive for: Normal Inspection. Negative for: L CVA Tenderness, R CVA Tenderness, Vertebral Tenderness Extremity: Positive for: Normal ROM (upper and lower extremities). Negative for: Deformity, Swelling Neurologic/Psych: Positive for: Alert, Oriented, Gait (steady) - Laboratory Results Result Diagrams: 07/05/18 00:09 07/05/18 00:09 - ECG O2 Sat by Pulse Oximetry: 96 (RA) Pulse Ox Interpretation: Normal Medical Decision Making Medical Decision Making: Time: 23:13 Initial Impression: Anxiety and malingering disorder Initial Plan: --EKG --BMP --Troponin I --CBC w/ differential --Reevaluation 02:45 -Labs showed no clinical significant abnormalities. White count elevated but pt. was recently on steroids secondary to leukemoid reaction. Also has hyponatremia chonic in nature. Patient is medically stable for discharge. Diagnosis of anxiety and malingering disorder. Scribe Attestation: Documented by Osmin Brown, acting as a scribe for Jaren Lazcano MD. Provider Scribe Attestation: All medical record entries made by the Scribe were at my direction and per sonally dictated by me. I have reviewed the chart and agree that the record accurately reflects my personal performance of the history, physical exam, medical decision making, and the department course for this patient. I have also personally directed, reviewed, and agree with the discharge instructions and disposition. Disposition - Clinical Impression Clinical Impression: Anxiety - Disposition Disposition: Routine/Home Disposition Time: 02:45 Condition: STABLE Instructions: Anxiety, Adult (DC) Forms: [place] (Norwegian)
[2018-07-05 05:18] VITALS: BP 156/74; PULSE 60; RESP 16; O2SAT 95
--- NOTE | 2018-07-05 14:18 | CARD ---
APPROVED REPORT Date of service: 07/04/2018 EKG Measurement Heart [id number] <Conclusion> Normal sinus rhythm Possible Left atrial enlargement Borderline ECG
== END 2018-07-05 06:05 | disposition home or self-care (01) ==
LOC: H.ER 18:40
DX: F41.9 Anxiety disorder, unspecified (principal); E87.1 Hypo-osmolality and hyponatremia; D72.829 Elevated white blood cell count, unspecified; D72.823 Leukemoid reaction; M79.7 Fibromyalgia; R07.89 Other chest pain

== ENCOUNTER 2018-07-12 22:21 | Emergency (ER) | payer MEDICARE ==
[2018-07-12 22:21] VITALS: BMI 21.9
[2018-07-13] MEDS ORDERED: Albuterol-Ipratrop 3 mg / 0.5 (3 ml) UD INH STA ×3 (00:23→05:35)
[2018-07-13 00:41] LABS: ABG ALLEN TEST YES; ARTERIAL BLOOD GAS HEMOGLOBIN 11.8 g/dL (11.7-17.4); ARTERIAL BLOOD GAS O2 CAPACITY 15.5 mL/dL (16-24); ARTERIAL BLOOD GAS O2 CONTENT 14.8 ML/dL (15-23); ARTERIAL BLOOD GAS O2 SAT 95.4 % (95-98); ARTERIAL BLOOD GAS PCO2 58 mm/Hg (35-45); ARTERIAL BLOOD GAS PO2 64 mm/Hg (80-100); ARTERIAL BLOOD GAS TCO2 37.7 mmol/L (22-28)
[2018-07-13 00:42] LABS: BASO # 0.1 K/uL (0.0-0.2); BASO % 0.4 % (0.0-2.0); EOS # 0.1 K/uL (0.0-0.7); EOS % 0.8 % (0.0-4.0); HEMOGLOBIN 11.5 g/dL (12.0-16.0); LYMPH # 1.3 K/uL (1.0-4.3); LYMPH % 10.4 % (20.0-40.0); MEAN CELL VOLUME 86.6 fl (81.0-99.0); MEAN CORPUSCULAR HEMOGLOBIN 29.8 pg (27.0-31.0); MEAN CORPUSCULAR HGB CONC 34.4 g/dL (33.0-37.0); MEAN PLATELET VOLUME 6.4 fl (7.2-11.7); MONO # 0.9 K/uL (0.0-0.8); NEUT # 10.2 K/uL (1.8-7.0); NEUT % 81.4 % (50.0-75.0); RBC 3.85 Mil/uL (3.80-5.20); RED CELL DISTRIBUTION WIDTH 14.6 % (11.5-14.5); WHITE BLOOD COUNT 12.5 K/uL (4.8-10.8)
[2018-07-13 00:56] LABS: BLOOD UREA NITROGEN 22 mg/dl (7-17); CALCIUM 8.7 mg/dL (8.4-10.2); GFR NON-AFRICAN AMERICAN > 60
[2018-07-13 01:02] LABS: B-TYPE NATRIURETIC PEPTIDE 287 pg/ml (0-900)
--- NOTE | 2018-07-13 06:03 | ED PDOC ---
HPI: SOB/CHF/COPD Time Seen by Provider: 07/13/18 00:11 Chief Complaint (Nursing): Shortness Of Breath Chief Complaint (Provider): Shortness Of Breath and Cough History Per: Patient History/Exam Limitations: no limitations Onset/Duration Of Symptoms: Days (x1) Additional Complaint(s): 68 year old female with a history pf COPD, asthma, emphysema and htn presents to the ED with shortness of breath and cough for one day. Patient denies any fever or chest pain. She takes a nebulizer and pump at home for COPD. PMD: none provided Past Medical History Reviewed: Historical Data Vital Signs: Last Vital Signs Temp 99.1 F 07/12/18 22:29 Pulse 80 07/13/18 04:50 Resp 16 07/13/18 04:50 BP 144/85 07/12/18 22:29 Pulse Ox 90 L 07/13/18 04:50 - Medical History PMH: Anxiety, Arthritis, Asthma, Back Problems (herniated disc), Colonic Polyps, COPD, Depression, Emphysema, Fibromyalgia, Gastritis, HTN, Malignancy (bladder CA), Peripheral Edema, Pneumonia (CHILDHOOD) Denies: HIV, Chronic Kidney Disease - Surgical History Surgical History: Endoscopy - Family History Family History: States: Unknown Family Hx - Living Arrangements Living Arrangements: Other (homeless) - Immunization History Hx Tetanus Toxoid Vaccination: No Hx Influenza Vaccination: Yes (06/2015) Hx Pneumococcal Vaccination: No - Home Medications Home Medications: Ambulatory Orders Medication Instructions Recorded Gabapentin 300 mg PO Q8 09/26/17 Oxybutynin Chloride [Oxybutynin 15 mg PO Q12H 09/26/17 Chloride ER] Baclofen [Lioresal] 10 mg PO Q8H 01/21/18 Cholecalciferol [Vitamin D 1000 IU] 1,000 unit PO DAILY 01/21/18 LORazepam [Ativan] 0.5 mg PO DAILY 01/21/18 [place]-3 Fatty Acids/Fish Oil [Fish 1 cap PO DAILY 01/21/18 Oil 1,000 mg Capsule] Sertraline [Zoloft] 50 mg PO DAILY 01/21/18 clonazePAM [Klonopin] 0.5 mg PO Q12 PRN 01/21/18 oxyCODONE [oxyCODONE Immediate 10 mg PO Q6 PRN 01/21/18 Release Tab] Albuterol/Ipratropium [Duoneb 3 3 ml INH RQID neb 06/28/18 mg/0.5 mg (3 ml) UD] Sodium Chloride for Inhalation 4 ml IH ONCE PRN vial.neb 06/28/18 [Sodium Chloride 3% for Inhalation] Aspirin [Aspirin Chewable] 81 mg PO DAILY #30 chew 07/03/18 Famotidine [Pepcid] 40 mg PO DAILY #60 tab 07/03/18 Fluticasone/Salmeterol 250/50 1 puff IH Q12 #1 puff 07/03/18 [Advair Diskus 250/50] Gabapentin [Neurontin] 300 mg PO 0500,1300,2100 #90 cap 07/03/18 Losartan [Cozaar] 100 mg PO DAILY #30 tab 07/03/18 Methylprednisolone [Medrol Dose 4 mg PO ASDIR #21 mg 07/03/18 Pack (21 tabs)] Metoprolol Succinate XL [Toprol XL] 50 mg PO BID #60 tab 07/03/18 Nicotine 21 mg/24 hr [Nicoderm Cq] 21 mg TD DAILY 30 Days patch 07/03/18 Pantoprazole [Protonix EC Tab] 40 mg PO DAILY #30 ect 07/03/18 Sertraline [Zoloft] 100 mg PO DAILY #30 tab 07/03/18 Valsartan [Diovan] 80 mg PO DAILY #30 tab 07/03/18 acetaZOLAMIDE [Diamox Sequels 500 500 mg PO DAILY #30 cer 07/03/18 mg SR Cap] amLODIPine [Norvasc] 10 mg PO DAILY #30 tab 07/03/18 clonazePAM [Klonopin] 0.5 mg PO DAILY PRN #30 tab 07/03/18 guaiFENesin/Dextromethorphan 1 tab PO BID PRN #60 tab 07/03/18 [Mucinex-DM 600-30 mg] Albuterol HFA [Ventolin HFA 90 2 puff IH [id number] PRN #1 inhaler 07/13/18 mcg/actuation (8 g)] Azithromycin [Z-Ike] 250 mg PO ASDIR #6 tab 07/13/18 predniSONE [predniSONE Tab] 30 mg PO Q12 #20 tab 07/13/18 - Allergies Allergies/Adverse Reactions: Allergies Allergy/AdvReac Type Severity Reaction Status Date / Time No Known Allergies Allergy Verified 07/12/18 22:29 Review of Systems ROS Statement: Except As Marked, All Systems Reviewed And Found Negative Constitutional: Negative for: Fever Cardiovascular: Negative for: Chest Pain Respiratory: Positive for: Cough, Shortness of Breath Physical Exam - Reviewed Nursing Documentation Reviewed: Yes Vital Signs Reviewed: Yes - Physical Exam Appears: Positive for: No Acute Distress (comfortable and sleepy) Head Exam: Positive for: ATRAUMATIC, NORMOCEPHALIC Skin: Positive for: Normal Color, Warm, Dry Eye Exam: Positive for: Normal appearance, EOMI, PERRL ENT: Positive for: Normal ENT Inspection Neck: Positive for: Normal, Painless ROM, Supple Cardiovascular/Chest: Positive for: Regular Rate, Rhythm. Negative for: Murmur Respiratory: Positive for: Wheezing (bilateral occasional ), Other (not hypoxic) Gastrointestinal/Abdominal: Positive for: Normal Exam, Soft. Negative for: Tenderness Back: Positive for: Normal Inspection Extremity: Positive for: Normal ROM. Negative for: Pedal Edema, Deformity Neurologic/Psych: Positive for: Alert, Oriented (x3). Negative for: Motor/Sensory Deficits - Laboratory Results Result Diagrams: 07/13/18 00:30 07/13/18 00:30 - ECG O2 Sat by Pulse Oximetry: 90 (RA) Pulse Ox Interpretation: Normal Medical Decision Making Medical Decision Making: Time: 21 Initial Impression: Shortness of breath Differential diagnoses include but are not limited to: COPD exacerbation. Rule out CHF and ACS Initial Plan: --ABG --EKG --BNP --BMP --Troponin --CBC with differentials --CXR --Duoneb --Solu-Medrol --Peak flow pre/post treatment --On reassessment, patient feels improvement in symptoms and is comfortable. She is not hypoxic in the ER. All labs reviewed and are WNL. Patient will be discharged home with albuterol, steroids and antibiotics. Scribe Attestation: Documented by Celine Zavala, acting as a scribe for Fernando Ibanez MD Provider Scribe Attestation: All medical record entries made by the Scribe were at my direction and personally dictated by me. I have reviewed the chart and agree that the record accurately reflects my personal performance of the history, physical exam, medical decision making, and the department course for this patient. I have also personally directed, reviewed, and agree with the discharge instructions and disposition. Disposition - Clinical Impression Clinical Impression: COPD exacerbation - Patient ED Disposition Is Patient to be Admitted: No Doctor Will See Patient In The: Office Counseled Patient/Family Regarding: Studies Performed, Diagnosis, Need For Followup - Disposition Referrals: [facility] [Outside] Disposition: Routine/Home Disposition Time: 06:00 Condition: GOOD Additional Instructions: APOLLO ARAIZA, thank you for letting us take care of you today. Your provider was Fernando Ibanez MD and you were treated for SOB. The emergency medical care you received today was directed at your acute symptoms. If you were prescribed any medication, please fill it and take as directed. It may take several days for your symptoms to resolve. Return to the Emergency Department if your symptoms worsen, do not improve, or if you have any other problems. Please contact your doctor or call one of the physicians/clinics you have been referred to that are listed on the Patient Visit Information form that is included in your discharge packet. Bring any paperwork you were given at discharge with you along with any medications you are taking to your follow up visit. Our treatment cannot replace ongoing medical care by a primary care provider outside of the emergency department. Thank you for allowing the [facility] team to be part of your care today. If you had an X-Ray or CT scan: A Radiologist will review the ED reading if any change in treatment is needed we will contact you. If you had a blood, urine, or wound culture: It will take several days for the results, if any change in treatment is needed we will contact you. If you had an STI test: It will take 48 hours for the results. Please call after 1 week if you have not heard back. Prescriptions: Albuterol HFA [Ventolin HFA 90 mcg/actuation (8 g)] 2 puff IH [id number] PRN #1 inhaler PRN Reason: Shortness Of Breath Azithromycin [Z-Ike] 250 mg PO ASDIR #6 tab predniSONE [predniSONE Tab] 30 mg PO Q12 #20 tab Instructions: Exacerbation of COPD
[2018-07-13 06:42] VITALS: BP 168/95; PULSE 87; RESP 18; TEMP 97.2
--- NOTE | 2018-07-13 07:53 | RAD ---
Date of service: 07/13/2018 PROCEDURE: CHEST RADIOGRAPH, 1 VIEW HISTORY: dyspnea COMPARISON: Comparison is made with 06/25/2018 FINDINGS: LUNGS: No evidence of new infiltrate or consolidation in the lungs. PLEURA: No pneumothorax or pleural fluid seen. CARDIOVASCULAR: Normal. OSSEOUS STRUCTURES: No significant abnormalities. VISUALIZED UPPER ABDOMEN: Normal. OTHER FINDINGS: None. IMPRESSION: No evidence of new infiltrate or consolidation in the lungs.
--- NOTE | 2018-07-14 17:15 | CARD ---
APPROVED REPORT Date of service: 07/13/2018 EKG Measurement Heart [id number] <Conclusion> Sinus rhythm with premature atrial complexes Nonspecific ST and T wave abnormality Abnormal ECG
[2018-07-16 16:03] VITALS: O2SAT 90
== END 2018-07-13 06:42 | disposition home or self-care (01) ==
LOC: H.ER 22:21
DX: J44.1 Chronic obstructive pulmonary disease with (acute) exacerbation (principal)
CPT/HCPCS: 36600; 71045; 80048; 82803; 83880; 84484; 85025; 93005; 94640; 96374; 99285; J2930